=== PATIENT | male | born 1940 | race Caucasian/White ===

== ENCOUNTER → 2023-10-13 07:21 | Outpatient (REF) | payer OTHER, SELFPAY ==
[2023-10-13] MEDS: LEXISCAN 0.4 MG IV (09:07)
[2023-10-13] MEDS: AMINOPHYLLINE 75 MG IV (09:20)
== END ==
LOC: RCS 07:21
PROVIDERS: ATTENDING PHYSICIAN Internal Medicine Cardiovascular Disease; FAMILY PHYSICIAN Family Medicine
DX: R06.09 Other forms of dyspnea (principal)
CPT/HCPCS: 78452; 93017; A9500; J2785

== ENCOUNTER 2023-11-03 06:08 | Day surgery (SDC) | payer OTHER, SELFPAY ==
[2023-10-27 15:42] LABS: % Basophils 0.5 % (0-2); % Eosinophils 2.3 % (0-6); % Immature Granulocytes 0.2 % (0-0.5); % Lymphocytes 18.1 % (20.5-51.1); % Monocytes 9.2 % (1.7-9.3); % Neutrophils 69.7 % (42.2-75.2); Absolute Eosinophils 0.1 10^3/uL (0-0.7); Absolute Monocytes 0.5 10^3/uL (0.1-0.6); Hemoglobin 13.3 g/dL (13.0-18.0); Mean Corpuscular Hgb 30.2 pg (27.0-31.0); Mean Corpuscular Volume 86.4 fL (80.0-94.0); Mean Platelet Volume 9.4 fL (7.4-10.4); Nucleated Red Blood Cells % 0 % (-); Platelet Count 154 10^3/uL (130-400); Red Cell Dist. Width 13.6 % (11.5-14.5); White Blood Cell Count 5.8 10^3/uL (4.8-10.8)
[2023-10-27 16:57] LABS: ALT (SGPT) 27 U/L (0-50); AST (SGOT) 34 U/L (17-59); Albumin 4.2 g/dl (3.5-5.0); Alkaline Phosphatase 72 U/L (38-126); Blood Urea Nitrogen 20 mg/dl (9-20); Calcium 9.9 mg/dl (8.4-10.2); Carbon Dioxide 30 mmol/L (22-30); Chloride 100 mmol/L (98-107); Glucose 140 mg/dl (70-99); Potassium 3.9 mmol/L (3.5-5.1); Sodium 137 mmol/L (135-145); Total Bilirubin 0.9 mg/dl (0.2-1.3); Total Protein 6.5 g/dl (6.3-8.2); eGFR > 60.00
[2023-11-03] VITALS (17 sets, daily range): BP systolic 117–161; BP diastolic 54–75; PULSE 67; BMI 31.3
[2023-11-03 07:16] LABS: Glucose - Point of Care 85 mg/dl (70-99)
--- NOTE | 2023-11-03 09:46 | ITS.CL.CATH ---
Addendum entered and electronically signed by Huber Hamm MD 11/03/23 11:58:
Correction: The patient's primary physician is You Raygoza, DO not Dr Rees. Please send copy of report to Dr Raygoza
Original Note:
Coloring Checker - Catheterization
Cardiac Catheterization
Procedure Report:
CARDIAC CATHETERIZATION REPORT
Date of Procedure: 11/03/2023
Referring: Milad Barrera MD
Indication: Angina with minimal exertion with hx rotational atherectomy ostial circumflex (not stent) and multiple prior LAD stents
�
HEMODYNAMIC DATA
AO: 151/73
LV: 159/20
There is a mean gradient of 11 mmHg across the aortic valve
�
LEFT VENTRICULOGRAPHY: Not performed
�
CORONARY ANGIOGRAPHY
Dominance: Left
Left Main: 20% mid and distal stenosis
LAD: There are multiple stents in the LAD the most proximal of which appears to extend from the ostium through the proximal LAD into the mid LAD. There is a second stent in the mid to distal LAD. All of the stented segments are widely patent.
There is 60-70% apical LAD stenosis just proximal to the whales tail bifurcation
Circumflex: The circumflex is dominant. There is 90% ostial circumflex stenosis with a second area of 70-80% proximal circumflex stenosis. The medium to large OM1 originates from the disease segment of circumflex. OM 2 is a small to medium sized
vessel. OM 3 is small. The circumflex terminates with a large bifurcating LPL and a medium sized L PDA
RCA: 90% mid stenosis in a nondominant RCA
�
Closure Device: None-of note, we attempted the procedure via the right radial artery. A micropuncture needle easily accessed the radial artery with brisk arterial flow. We could only advance a soft tip wire about 5 cm. The wire and needle removed
and a second site was punctured again with good arterial flow but wire advancement was only to the same location suggesting functional or true occlusion of the right radial. Accordingly we accessed the right femoral artery using a micropuncture
technique. The artery was accessed without difficulty. However, at the procedure conclusion we imaged the vessel in preparation for closure device placement and found a significant dissection just below the puncture site. This was imaged and
orthogonal views and is clearly a focal dissection in the proximal common femoral artery. The dissection does not propagate distally. It is unclear whether this is an acute dissection from the procedure today or possibly chronic dissection
following his TAVR procedure in 2021. Of note, the right femoral pulse was minimally palpable prior to the procedure.
�
Radiation (mGy): 358
DAP (cm2.Gy): 36.4
Fluoroscopy time: 1.9 minutes
�
CONCLUSIONS
1:�Systemic hypertension
2:�Bioprosthetic (ADRIENNE S3) TAVR valve (placed at [facility] in 2021) with mean gradient 11 mmHg consistent with well-functioning TAVR prosthesis
3. Severe CAD as described
4. 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 The RFA sheath was removed and manual compression for 25 minutes used to obtain hemostasis. The DP signal present before the case was unchanged once the sheath
had been removed and a PT signal which had not been heard preprocedure was heard post procedure. We will admit the patient for observation overnight to make sure lower extremity blood flow remains intact
5. This patient reportedly had a rotational atherectomy procedure of the ostial circumflex stenosis at [facility] in January 2022 (8 months after TAVR). The patient and his family report that the operating physician stated he could not
get a stent to the location. This recurrent severe lesion is clearly the culprit for his anginal symptoms. He is very unhappy with his quality of life and understands that either surgical or interventional correction will be done at high risk.
Current antianginal regimen includes labetalol and ranolazine. We will add Imdur 30 mg daily to his regimen. We will review revascularization options with CT surgery then present options to the patient and his family.
�
�
Copy to: Milad Barrera MD and Huber Rees,
�
Huber Hamm MD, [facility], [facility]
--- NOTE | 2023-11-03 10:20 | CONSULT.CT ---
Addendum entered and electronically signed by Andrew Orta MD 11/03/23 17:11:
I saw and examined the patient.
The PA's note was reviewed and I agree with the note.
Comment:
CARDIAC SURGERY ATTENDING:
It was my pleasure to meet with Mr. Vicente Headley at his bedside today. His family was present during our discussions. I reviewed his coronary pathology and discussed the potential for surgical operative intervention. Well in the absence of
significant LAD disease, surgery offers no clear survival benefit, given the complexity of his circumflex disease I was asked to evaluate his case by my cardiology colleagues. It is not clear that PCI intervention will be possible. The patient was
agreeable to surgical intervention should PCI not be possible, but would prefer to investigate the possibility of PCI. My interventional cardiology colleague, Dr. Luis Hamm, subsequently spoke with the patient and offered PCI which will be
scheduled for 11/12/2023. I am happy to provide surgical backup.
Thank you for the opportunity to participate in the care of this patient.
Please call with any questions or concerns.
Andrew Orta MD
[phone]
Original Note:
Consultation
-
Date/Time Consultation Requested: 11/03/2023
Date/Time Consultation Performed: 11/03/2023
Requesting Provider: Dr. Hamm
Performing Provider: Neymar brown
Reason for Consultation: CABG eval. vs high risk PCI
Patient History
Physicians
Family Physician: You Seaman
Outpatient Financial Planner: Milad Barrera
Inpatient Financial Planner: Noris
History of Present Illness
Patient is a 83-year-old male with known cardiac history of multiple stents along with previously placed TAVR. Past medical history significant for hypertension, hyperlipidemia, obesity, diabetes, remote tobacco abuse, and positive family history
of coronary disease.
He is now experiencing exertional chest pain that is occurred over 3 years, now comes on more frequently with less exertion. He also complains of shortness of breath. Pain relieved with nitroglycerin and rest. Recent Lexiscan stress test at
[facility] on 10/15/2023 which was abnormal.
Cardiac catheterization performed today 11/03/[address] Hamm showed recurrent coronary artery disease. Cardiothoracic surgery was consulted for possible CABG versus high risk PCI.
Past Medical History
Past medical history: Hypertension
Hyperlipidemia
Obesity
Insulin-dependent diabetes
Remote tobacco abuse
Positive family history for CAD
CAD status post PCI, rotational atherectomy left circumflex [address] [facility]
CAD status post PCI/stent of tandem lesions in mid LAD 6�22 at [facility]
Severe aortic stenosis status post TAVR 8�22 at [facility]
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
Diabetic neuropathy
Severe obstructive sleep apnea CPAP at home
Beach's esophagitis with GERD
History of paraEsophageal hernia status postrepair
Hearing impairment
Benign essential tremor
Detached retina 04/27/2023
Hiatal hernia
Past Surgical History
Past surgical history: PCI stents
Umbilical hernia repair
Detached retina
Paraesophageal hernia repair
Trigger finger repair x 3
Dental History
n/a
Family History
Mother: at Age and Cause of (Mother committed suicide)
Father: at Age and Cause of (Father with history of CAD status post PA, stroke, in his late 60s from complications related to diabetes.)
Family Medical History: Early CAD, CAD and Diabetes
Social History
Alcohol: Daily (1-2 drinks daily, sometimes more)
Drug: None
Tobacco: Former Smoker (Quit smoking 55 years ago)
Personal:
Living: Alone
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
Allergies
Allergy/AdvReac Type Severity Reaction Status Date / Time
pollen extracts Allergy seasonal Verified 11/03/23 07:05
allergies
Home Medications
�Medication �Instructions �Recorded �Confirmed �Type
Preservision 2 cap PO BID 10/23/23 11/03/23 History
Probiotic 1 cap PO DAILY 10/23/23 11/03/23 History
Rescue 1250 Fish Oil 2 cap PO DAILY 10/23/23 11/03/23 History
Slo Fe 45 mg PO DAILY 10/23/23 11/03/23 History
Vitamin B-12 1 tab PO DAILY 10/23/23 11/03/23 History
aspirin 81 mg tablet,delayed 81 mg PO DAILY 10/23/23 11/03/23 History
release
atorvastatin 40 mg tablet 40 mg PO DAILY 10/23/23 11/03/23 History
azelastine 137 mcg (0.1 %) nasal 1 spray intranasal BID 10/23/23 11/03/23 History
spray
cholecalciferol (vitamin D3) 50 50 mcg PO DAILY 10/23/23 11/03/23 History
mcg (2,000 unit) capsule (Vitamin
D3)
clopidogrel 75 mg tablet 75 mg PO DAILY 10/23/23 11/03/23 History
coenzyme Q10 200 mg capsule (Co 200 mg PO DAILY 10/23/23 11/03/23 History
Q-10)
ezetimibe 10 mg tablet 10 mg PO DAILY 10/23/23 11/03/23 History
famotidine 20 mg tablet 20 mg PO BID 10/23/23 11/03/23 History
hydrochlorothiazide 12.5 mg tablet 12.5 mg PO DAILY 10/23/23 11/03/23 History
insulin glargine 100 unit/mL (3 28 unit SC BID 10/23/23 11/03/23 History
mL) subcutaneous pen (Lantus
Solostar U-100 Insulin)
labetalol 300 mg tablet 200 mg PO BID 10/23/23 11/03/23 History
levetiracetam 500 mg tablet 500 mg PO BID 10/23/23 11/03/23 History
melatonin 5 mg tablet 5 mg PO HS PRN sleep 10/23/23 11/03/23 History
ranolazine 500 mg tablet,extended 500 mg PO BID 10/23/23 11/03/23 History
release,12 hr
resveratrol 1 cap PO DAILY 10/23/23 10/23/23 History
Review of Systems
-
History Source: Patient and Family
General: Reports Fatigue
HEENT: Reports No Symptoms
Respiratory: Reports SOB and SINGH
Cardiac: Reports Chest Pain, CAD and Known Vascular Disease
Abdomen/GI: Reports Reflux and Indigestion
: Reports Nocturia
Musculoskeletal: Reports Joint Pain
Skin: Reports No Symptoms
Neurological: Reports CVA and Other (Diabetic neuropathy, benign essential tremor)
Vascular: Reports Claudication
Physical Exam
Vital Signs
Temp 97.8 F 11/03/23 09:25
Temp route: Temporal 11/03/23 09:25
Pulse 51 11/03/23 09:47
Resp Rate 18 11/03/23 09:47
Blood pressure 158/67 11/03/23 09:47
Blood pressure extremity used: Left upper arm 11/03/23 09:25
Position: Lying 11/03/23 09:25
MAP (cuff-Rahda Monitor) 93 11/03/23 09:47
SaO2 98 11/03/23 09:47
Oxygen Mode of Delivery Room air 11/03/23 09:40
Can the patient verbally communicate their pain? Yes 11/03/23 09:40
Actual Weight 194 lb 0.108 oz 11/03/23 06:26
Body Mass Index (BMI) 31.3 11/03/23 06:26
Labs
10/27/23 13:01
10/27/23 13:01
Exam
General: Well Developed, Well Nourished, No Apparent Distress and Comfortable
HEENT: Normocephalic, Anicteric and Atraumatic
Neck: Trachea Midline
Respiratory: Clear
Cardiac: Regular Rhythm
GI: Soft, Non Tender, Non Distended, Normal Bowel Sounds and Other (Obese)
Rectal: Deferred by Provider
Skin: Warm and Dry
Neuro: Awake, Alert, Oriented and AO x 3
Extremities: Lower Level Edema and Pulses (Decreased pulses on right, DP and PT pulses by Doppler, right and left foot cool, dry, left leg good popliteal pulse compared to right popliteal pulse, left DP pulse barely palpable)
Lymph: No Lymphadenopathy
Psych: Calm
Assessment / Plan
-
Assessment: Recurrent coronary artery disease status post multiple stents and rotational atherectomy, now being considered for CABG versus high risk PCI
Hypertension
Hyperlipidemia
Insulin-dependent diabetes
Severe aortic stenosis status post TAVR 8-22 at [place]
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
Obesity
Remote tobacco abuse
Severe obstructive sleep apnea uses CPAP at home
Beach's esophagitis with GERD
History of paraesophageal hernia status postrepair
Hearing impairment
Diabetic neuropathy
Hearing impairment
Plan:
Attending cardiothoracic surgeon will review all studies and plan to have multidisciplinary discussion with invasive cardiology concerning high risk PCI versus CABG.
Continue to optimize medical management, consider endocrine consult for insulin management.
Vascular surgery consulted to evaluate right femoral artery dissection.
--- NOTE | 2023-11-03 10:21 | PTCARENOTE ---
0910: Rec'd pt from agricultural labor camp manager. Placed on all approp monitors. RLE cold, though pt advises no pain or change in sensation/motion. Doppler pulses obtained and monitored.
0930: Dr. Hamm and CT surgery consult at bedside with daughter and pt.
1005: Pt moved to 2256 with RN, on all appropriate monitoring equip. Updated pt report provided at bedside to BIBI Sanz. All questions addressed. Care transferred.
--- NOTE | 2023-11-03 10:30 | PTCARENOTE ---
Rec'd report from Darline in the fence laborer; Rec'd pt in bed AAOx3 w/no c/o CP or SOB. Advised pt & pt's daughter of bedrest status until 12pm today. Pt w/R radial dressing C/D/I & R femoral site w/dressing C/D/I w/no signs or symptoms of bleeding or
hematoma. Pt's VS stable w/HR in the 50's on admit & BP 161/70. Pt's SpO2 91-93% on RA. Pt w/episodes of bradycardia w/HR dipping to upper 30's-40's & SpO2 at 91% on RA. O2 2L via NC applied & pt's O2 sats improved to 96-98%. Cardiology notified of
bradycardia & order for CPAP requested for pt w/PMH of sleep apnea & pt does not have his own CPAP unit w/him. Pt w/call smith within reach & plan of care ongoing.
--- NOTE | 2023-11-03 11:56 | CM ---
Reviewed chart. Met with Mr. Headley and his daughter to review discharge plans. He states prior to admission he resides with his daughter in a one story home with one step to enter. He states prior to admission he was independent with
ambulation and adls. He states he does not have any DME in the home. He states he has a prescription plan and uses [facility]. The discharge plan is to return home with his daughter when medically stable.
--- NOTE | 2023-11-03 12:00 | CON.VAS ---
Addendum entered and electronically signed by James Barreto III, MD 11/03/23 18:30:
This patient was seen and examined with EZIO Ryder. I agree with the history and physical exam as well as the assessment and plan. I have the following additions:
Case discussed with Dr. Luis Hamm in the Hearing Stenographer earlier today
Patient is currently sitting up eating dinner
No complaints
No leg pain, no foot pain bilaterally
Doppler signals are present in the feet bilaterally.
Noninvasive arterial studies personally reviewed.
No dissection is identified in the right common femoral artery.
No significant stenosis is identified bilaterally.
Patient can follow-up with vascular surgery on a as needed basis.
Please call with any questions or concerns
Signed:
James Barreto III, MD
[facility]
[phone] (cell)
Original Note:
Consultation
Consultation Request
Date/Time Consultation Performed: 11/03/2023
Requesting Provider: Huber Hamm MD
Performing Provider: Vanessa Childers NP-C for James Barreto III
Reason for Consultation: Diminished pulse exam initially following cardiac catheterization
Medical History
-
Chief Complaint: Diminished pulse exam at RLE
History of Present Illness:
This is an 83-year-old male with significant past medical history for hyperlipidemia, diabetes, CAD, severe aortic stenosis, stroke, obstructive sleep apnea, and esophagitis who is status post cardiac catheterization via right femoral artery when
consult was placed due to diminished pulses upon sheath insertion. However, since sheath removal for procedure patient has had return of baseline DP and PT pulse to right foot and offers no complaints. Vascular surgery consulted for concern of
peripheral arterial disease. Patient currently offers no complaints and is resting on stretcher without pain. He endorses a sedentary lifestyle over the past 3 years due to cardiac limitations causing either chest pain or shortness of breath. He
notes that he can walk about 50 feet before he experiences shortness of breath. He denies prior history of vascular surgical interventions or requiring a vascular surgeon. 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
Past Medical History
Past Medical History: CAD, Valvular Disease (Aortic stenosis status post TAVR 10/[address] [facility]) and Other (Hyperlipidemia, obesity, diabetic neuropathy, Beach's esophagitis, hiatal hernia, hearing impairment, and essential tremor)
Past Surgical History: Cardiac (Cardiac catheterization with PCI) and Other (Umbilical hernia repair, detached retina, trigger finger repair, paraesophageal hernia repair)
Social History
Tobacco: Former Smoker (Quit smoking roughly 55 years ago)
Alcohol: Daily (1-2 drinks daily)
Drug: None
Living: Alone
Allergies / Home Medications
Allergy/AdvReac Type Severity Reaction Status Date / Time
pollen extracts Allergy seasonal Verified 11/03/23 07:05
allergies
�Medication �Instructions �Recorded �Confirmed �Type
Preservision 2 cap PO BID 10/23/23 11/03/23 History
Probiotic 1 cap PO DAILY 10/23/23 11/03/23 History
Rescue 1250 Fish Oil 2 cap PO DAILY 10/23/23 11/03/23 History
Slo Fe 45 mg PO DAILY 10/23/23 11/03/23 History
Vitamin B-12 1 tab PO DAILY 10/23/23 11/03/23 History
aspirin 81 mg tablet,delayed 81 mg PO DAILY 10/23/23 11/03/23 History
release
atorvastatin 40 mg tablet 40 mg PO DAILY 10/23/23 11/03/23 History
azelastine 137 mcg (0.1 %) nasal 1 spray intranasal BID 10/23/23 11/03/23 History
spray
cholecalciferol (vitamin D3) 50 50 mcg PO DAILY 10/23/23 11/03/23 History
mcg (2,000 unit) capsule (Vitamin
D3)
clopidogrel 75 mg tablet 75 mg PO DAILY 10/23/23 11/03/23 History
coenzyme Q10 200 mg capsule (Co 200 mg PO DAILY 10/23/23 11/03/23 History
Q-10)
ezetimibe 10 mg tablet 10 mg PO DAILY 10/23/23 11/03/23 History
famotidine 20 mg tablet 20 mg PO BID 10/23/23 11/03/23 History
hydrochlorothiazide 12.5 mg tablet 12.5 mg PO DAILY 10/23/23 11/03/23 History
insulin glargine 100 unit/mL (3 28 unit SC BID 10/23/23 11/03/23 History
mL) subcutaneous pen (Lantus
Solostar U-100 Insulin)
labetalol 300 mg tablet 200 mg PO BID 10/23/23 11/03/23 History
levetiracetam 500 mg tablet 500 mg PO BID 10/23/23 11/03/23 History
melatonin 5 mg tablet 5 mg PO HS PRN sleep 10/23/23 11/03/23 History
ranolazine 500 mg tablet,extended 500 mg PO BID 10/23/23 11/03/23 History
release,12 hr
resveratrol 1 cap PO DAILY 10/23/23 10/23/23 History
Review of Systems
-
History Source: Patient
Constitutional: Reports No Symptoms
EENT: Reports No Symptoms
Respiratory: Reports No Symptoms
Cardiac: Reports No Symptoms
Vascular: Denies Leg Pain / Claudication, Numbness or Tingling
Abdomen/GI: Reports No Symptoms
: Reports No Symptoms
Musculoskeletal: Reports No Symptoms
Skin: Reports No Symptoms
Neurological: Reports No Symptoms
Endocrine: Reports No Symptoms
Physical Exam
Vital Signs
Temp Pulse Resp BP Pulse Ox
97.8 F 61 18 140/70 95
11/03/23 15:52 11/03/23 14:45 11/03/23 15:52 11/03/23 13:00 11/03/23 15:52
Lab Results
10/27/23 13:01
08/20/24 13:01
Physical Exam
General: No Apparent Distress
HEENT: Normocephalic, Anicteric and Atraumatic
Respiratory: Non Labored Respirations
Cardiac: Negative JVD
GI: Soft, Non Tender and Non Distended
Musculoskeletal: No Edema
Skin: Warm and Dry
Neuro: AO x 3
Pulses: Bilateral Femoral: +1, Bilateral Dorsalis Pedis: Doppler and Bilateral Posterior Tibial: Doppler
Assessment / Plan
-
Assessment: 83-year-old male status post cardiac catheterization with suspected peripheral arterial disease
Plan:
Will obtain right groin ultrasound to rule out pseudoaneurysm or dissection, additionally will order arterial ultrasound with THUY/TBI to evaluate for peripheral arterial disease\\
I performed this shared service with the attending. I evaluated the patient [id number] and have entered clinical documentation as shown in the encounter note. I performed the following component(s):�history and physical exam. Note that medical
decision making is not final until attested by vascular attending.
[2023-11-03 12:48] LABS: Glucose - Point of Care 64 mg/dl (70-99)
[2023-11-03 13:03] LABS: Glucose - Point of Care 62 mg/dl (70-99)
[2023-11-03] MEDS: NOVOLOG FLEXPEN-MODERATE RESISTANCE SC (13:19)
[2023-11-03 13:27] LABS: Glucose - Point of Care 102 mg/dl (70-99)
--- NOTE | 2023-11-03 14:27 | W.PN.UPDATE ---
Update Note
Progress Note Update
HD stable
Pain free
Doppler signals present R DP and R PT
R foot warm
Reviewed options with pt as did Dr Orta of [facility]. High risk PCI vs CABG vs med Rx. He wants revascularization. Risk of PCI will be high- (2-3% mortality) and stent may or may not be possible. Dr Orta discussed the risk of CABG which is
considerable at age 83. I informed pt and family that there was a possibility that in trying to open the ostial circumflex it could occlude and require emergent CABG which would be significantly more risk than an elective cabg. After discussion, he
wants to proceed with attempted PCI. Will arrange for 9-5.
Expect home in AM
[2023-11-03] MEDS: PLAVIX 75 MG PO (16:33)
[2023-11-03 17:55] LABS: Glucose - Point of Care 224 mg/dl (70-99)
[2023-11-03] MEDS: NOVOLOG FLEXPEN-MODERATE RESISTANCE 3 UNITS SC (18:41)
[2023-11-03] MEDS: PEPCID 20 MG PO (21:24)
[2023-11-03] MEDS: KEPPRA 500 MG PO (21:24)
[2023-11-03] MEDS: RANEXA EXTENDED RELEASE 500 MG PO (21:24)
[2023-11-03] MEDS: TRANDATE PO (21:25)
[2023-11-03 22:27] LABS: Glucose - Point of Care 143 mg/dl (70-99)
[2023-11-03] MEDS: LANTUS 0.28 UNITS SC (22:30)
--- NOTE | 2023-11-04 02:00 | PTCARENOTE ---
Pt. received at change of shift. VSS, NSR with first degree AVB and BBB on tele. Pt. denies CP and SOB, on CPAP at HS. Right radial and femoral sites dry/intact with no complications noted. Plan of care discussed and pt. verbalizes
understanding. Can make needs known. Call smith within reach.
[2023-11-04 03:33] VITALS: PULSE 52
[2023-11-04 04:51] VITALS: BP 146/84
[2023-11-04 05:17] LABS: Hematocrit 40.3 % (39.0-52.0); Hemoglobin 13.9 g/dL (13.0-18.0); Mean Corp Hgb Conc. 34.5 g/dL (33.0-37.0); Mean Corpuscular Hgb 30.4 pg (27.0-31.0); Mean Corpuscular Volume 88.2 fL (80.0-94.0); Mean Platelet Volume 9.3 fL (7.4-10.4); Platelet Count 129 10^3/uL (130-400); Red Blood Cell Count 4.57 10^6/uL (4.70-6.10); Red Cell Dist. Width 13.4 % (11.5-14.5); White Blood Cell Count 4.6 10^3/uL (4.8-10.8)
[2023-11-04 05:43] LABS: Blood Urea Nitrogen 19 mg/dl (9-20); Calcium 9.9 mg/dl (8.4-10.2); Carbon Dioxide 30 mmol/L (22-30); Chloride 103 mmol/L (98-107); Estimated Creatinine Clearance 74 ml/min; Glucose 56 mg/dl (70-99); HDL Cholesterol 54 mg/dl; LDL Cholesterol, Calculated 44 mg/dl; Sodium 142 mmol/L (135-145); Total Cholesterol 114 mg/dl (50-199); Triglyceride 82 mg/dl (10-149); Very Low Density Lipoprotein 16 mg/dl (0-30); eGFR > 60.00
[2023-11-04 06:35] LABS: Glucose - Point of Care 73 mg/dl (70-99)
[2023-11-04 07:39] VITALS: BP 177/71
[2023-11-04 07:43] LABS: Glucose - Point of Care 74 mg/dl (70-99)
[2023-11-04] MEDS: NOVOLOG FLEXPEN-MODERATE RESISTANCE SC (08:14)
[2023-11-04] MEDS: KEPPRA 500 MG PO (08:15)
[2023-11-04] MEDS: ASPIR LOW (ENTERIC COATED) 81 MG PO (08:15)
[2023-11-04] MEDS: ZETIA 10 MG PO (08:15)
[2023-11-04] MEDS: RANEXA EXTENDED RELEASE 500 MG PO (08:15)
[2023-11-04] MEDS: LIPITOR 40 MG PO (08:16)
[2023-11-04] MEDS: PLAVIX 75 MG PO (08:16)
[2023-11-04] MEDS: TRANDATE 200 MG PO (08:16)
[2023-11-04] MEDS: ORETIC 12.5 MG PO (08:20)
[2023-11-04] MEDS: PEPCID 20 MG PO (08:20)
[2023-11-04 08:21] LABS: Glycohemoglobin (HgbA1c) 6.8 % (4.0-5.6)
[2023-11-04] MEDS: LANTUS 0.28 UNITS SC (08:21)
--- NOTE | 2023-11-04 08:57 | W.PN.CARDCBS ---
Today's Communication / Plan
-
DAPT w/asa, plavox
new start isosorbide
Staged PCI 11/11 for high risk LCx intervention
home today
Impression / Plan
-
PCP: You Raygoza MD
CDY: Milad Barrera MD
83 y/o, PMH sig for CAD w/prior LCx atherectomy/angioplasty only (01/2022), LAD ENRIQUE to tandem lesions (08/2021), CVA w/RUE deficit (2019), s/p TAVR (10/2021), presents with chronic exertional chest pain and SOB, progressive over the last few years,
some relief with SL HTG. Lexiscan NST 10/14 was abnormal and referred for LHC.
Cath with recurrent severe ostial/proximal LCx stenosis , and pt was offered hi risk PCI v. CABG. Procedure was complicated with possible R BAIT TIER dissection, noted at end of case, unclear if it was acute or chronic (possibly from TAVR). Admitted
overnight with vascular consult. Workup without any non-flow limiting lesions, no pseudoaneuryms, HT or AVF on US, no dissection noted. CTS also consulted and pt prefers PCI to CABG, despite awareness of increased risk.
IMPRESSION/PLAN:
CAD/USA/Abn NST
LAD ENRIQUE to tandem lesions (08/2021)
LCx atherectomy/angioplasty only (01/2022)
now with recurrent 90% ostial LCx stenosis with 70-80% prox LCx stenosis
pt prefers high risk PCI over CABG- aware of increased risk and stent may/may not be possible.
will continue DAPT w/asa, plavix
new start isosorbide 30mg/daily in addition to ranexa, atenolol
staged PCI planned for 11/[address] Barrera thereafter.
Groin Complication- possible R BAIT TIER dissection noted at end of case, chronic v. acute
vascular consult appreciated
Bilat THUY without flow limiting lesions
Groin US revealed no pseudoaneurysms, HT, AVF or dissection
stable overnight with stable h/h
HTN- stable on current meds
HLD- excellent lipid profile, continue statin therapy
, s/p TAVR (2021)- stable
CVA (10/2019)- stable, good mobility
GERD/BE- continue PPI
Progress Note - Adjustment Supervisor
Subjective
Date of Service: November 04, 2023
Denies cp/palps/dyspnea/groin pain
oob ambulating
Objective
Labs:
11/04/23 04:48
11/04/23 04:48
Labs
Hgb 13.9 g/dL (13.0-18.0) 11/04/23 04:48
Hct 40.3 % (39.0-52.0) 11/04/23 04:48
Plt Count 129 10^3/uL (130-400) L 11/04/23 04:48
Sodium 142 mmol/L (135-145) 11/04/23 04:48
Potassium 4.0 mmol/L (3.5-5.1) 11/04/23 04:48
BUN 19 mg/dl (9-20) 11/04/23 04:48
Creatinine 0.8 mg/dL (0.7-1.3) 11/04/23 04:48
Glucose 56 mg/dl (70-99) L 11/04/23 04:48
Vital Signs and I&O:
Vital Signs
Temp Pulse Resp BP Pulse Ox
98.8 F 55 20 177/71 98
11/04/23 07:38 11/04/23 07:39 11/04/23 07:38 11/04/23 07:39 11/04/23 07:38
Vital Signs
Temp Pulse Resp BP Pulse Ox
98.8 F 55 20 177/71 98
11/04/23 07:38 11/04/23 07:39 11/04/23 07:38 11/04/23 07:39 11/04/23 07:38
Intake & Output
11/02/23 11/03/23 11/04/23 11/05/23
06:59 06:59 06:59 06:59
Intake Total 1360 / 1360
Output Total 300 / 300
Balance 1060 / 1060
Physical Exam
Physical Exam
AAOX3, MAEE 5/5
RRR S1 S2 2/6 holosystolic murmur
CTA bilat, non labored
soft abd, + bs
right groin site without ht/bleeding, non tender
bilat extremities w/palpable distal pulses, no edema
--- NOTE | 2023-11-04 09:09 | PTCARENOTE ---
Assumed care of pt from night RN. Pt received awake and alert, Ox3. VSS, CM shows SB 40-50's, POX 96% on RA. Right radial and right femoral sites CDI, with good CMS throughout. AM AccuCheck is 73, pt refuses to eat breakfast states 'I'll be
going home at 0900 and will eat at home'. Explained to pt that not all D/C paperwork is complete, so probably will not be going home till closer to 1100. Pt continues to refuse breakfast, large glass of OJ given.
--- NOTE | 2023-11-04 09:44 | PTCARENOTE ---
All D/C info reviewed with pt, all questions answered. Pt D/c'd home with family member.
--- NOTE | 2023-11-04 10:33 | W.DS.TRANS ---
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
-
Discharge Instructions:
Discharge Diagnosis/Procedures Cardiac cath, Right femoral artery dissection (
resolved)
Diet Low Cholesterol,Diabetic, Carb Controlled
Driving Restrictions No driving for 24 hours
Instructions:
Stand-Alone Forms: DC Instructions- Cath/EP Lab
Changes to Home Medications: Yes
Discharge Medications:
DC Medications w/original date entered in [employer]
Preservision 2 cap PO BID 10/23/23
Probiotic 1 cap PO DAILY 10/23/23
Rescue 1250 Fish Oil 2 cap PO DAILY 10/23/23
Slo Fe 45 mg PO DAILY 10/23/23
Vitamin B-12 1 tab PO DAILY 10/23/23
aspirin 81 mg tablet,delayed release 81 mg PO DAILY 10/23/23
atorvastatin 40 mg tablet 40 mg PO DAILY 10/23/23
azelastine 137 mcg (0.1 %) nasal spray 1 spray intranasal BID 10/23/23
cholecalciferol (vitamin D3) 50 mcg (2,000 unit) capsule (Vitamin D3) 50 mcg PO DAILY 10/23/23
clopidogrel 75 mg tablet 75 mg PO DAILY 10/23/23
coenzyme Q10 200 mg capsule (Co Q-10) 200 mg PO DAILY 10/23/23
ezetimibe 10 mg tablet 10 mg PO DAILY 10/23/23
famotidine 20 mg tablet 20 mg PO BID 10/23/23
hydrochlorothiazide 12.5 mg tablet 12.5 mg PO DAILY 10/23/23
insulin glargine 100 unit/mL (3 mL) subcutaneous pen (Lantus Solostar U-100 Insulin) 28 unit SC BID 10/23/23
labetalol 300 mg tablet 200 mg PO BID 10/23/23
levetiracetam 500 mg tablet 500 mg PO BID 10/23/23
melatonin 5 mg tablet 5 mg PO HS PRN sleep 10/23/23
ranolazine 500 mg tablet,extended release,12 hr 500 mg PO BID 10/23/23
resveratrol 1 cap PO DAILY 10/23/23
isosorbide mononitrate 30 mg tablet,extended release 24 hr 30 mg PO DAILY #30 tabs 11/04/23
nitroglycerin 0.4 mg sublingual tablet 0.4 mg sublingual [id number] PRN chest pain #25 tabs 11/04/23
Home Medication Changes
NEW: isosorbide, nitrostat
Pending Results: No
== END 2023-11-04 09:45 | disposition home or self-care (01) ==
LOC: CATH 06:08
PROVIDERS: Nurse Practitioner Adult Health; ATTENDING PHYSICIAN Internal Medicine Cardiovascular Disease; CONSULT PHYSICIAN Surgery Vascular Surgery; CONSULT PHYSICIAN Thoracic Surgery (Cardiothoracic Vascular Surgery); FAMILY PHYSICIAN Family Medicine; OTHER PHYSICIAN Internal Medicine Cardiovascular Disease
DX: I25.119 Atherosclerotic heart disease of native coronary artery with unspecified angina pectoris (principal); R07.9 Chest pain, unspecified; I10 Essential (primary) hypertension; E78.5 Hyperlipidemia, unspecified; E11.40 Type 2 diabetes mellitus with diabetic neuropathy, unspecified; G47.33 Obstructive sleep apnea (adult) (pediatric); K21.9 Gastro-esophageal reflux disease without esophagitis; Z95.5 Presence of coronary angioplasty implant and graft; Z87.891 Personal history of nicotine dependence; Z95.3 Presence of xenogenic heart valve; Z86.73 Personal history of transient ischemic attack (TIA), and cerebral infarction without residual deficits; Z82.49 Family history of ischemic heart disease and other diseases of the circulatory system; Z79.02 Long term (current) use of antithrombotics/antiplatelets; Z79.4 Long term (current) use of insulin; Z79.82 Long term (current) use of aspirin
CPT/HCPCS: 36415; 80048; 80053; 80061; 82962; 83036; 85025; 85027; 93005; 93458; 93922; 93925; 93926; C1894; Q9967

== ENCOUNTER 2023-11-12 10:30 | Day surgery (SDC) | payer OTHER, SELFPAY ==
[2023-11-12] VITALS (29 sets, daily range): BP systolic 132–177; BP diastolic 47–132; BMI 31.6
[2023-11-12] MEDS: NSS 266 ML IV (11:23)
[2023-11-12 11:28] LABS: Glucose - Point of Care 89 mg/dl (70-99)
[2023-11-12 14:18] LABS: ACT-LR - POC > 397 Seconds (116-155)
--- NOTE | 2023-11-12 15:04 | ITS.CL.ANGIO ---
Surgical Tech - Angioplasty
Angioplasty
Procedure Report:
CORONARY ANGIOPLASTY REPORT
Date of Procedure: 11/12/2023
Referring: Milad Barrera MD
Indication: [place] class III angina despite medical therapy with severe ostial circumflex disease
�
PROCEDURE SUMMARY:
Unsuccessful attempted PCI of ostial circumflex due to inability to get guidewire into distal circumflex artery
�
DESCRIPTION OF PROCEDURE: Formal surgical backup was arranged for this high risk procedure. A 6 Polish sheath was placed using a micropuncture technique in the left femoral artery. An EBU 3.5 guide catheter set nicely in the left main and provided
good backup support. A series of guidewires were then advanced attempting to wire into the mid and distal circumflex artery. The angulation between the high rising OM1 and circumflex was such that the coronary guidewire coronary guidewires
selected the OM1 branch and we were not able to get a guidewire into the circumflex proper. Of note, review of the angiogram done at [facility] in January 2022 shows that the interventional verifier operator was also unable to wire into the
circumflex and did the rotational atherectomy into OM1. At that time, stenting was felt to be unsafe as it would require stenting in the left main and jailing the entire dominant circumflex distribution distal to OM1. There was now also marked
progression of a proximal circumflex lesion to 80% severity (versus 30% severity in January 2022). We tried BMW, whisper, and Fielder XT wires including the use of a supra core exchange catheter with a 90 degree tip. At no time were able to get
the wire cleanly into the circumflex proper. We then concluded the procedure with several angiograms demonstrating good antegrade flow with no evidence of a misadventure.
�
ANTI-COAGULATION THERAPY
1:�Heparin 6000 units
�
Closure Device Used: None-left femoral angiography suggest the puncture location to be in the distal common femoral artery right at the bifurcation and I did not feel safe to place a closure device. We will use manual compression for hemostasis.
�
Radiation (mGy): 363
DAP (cm2.Gy): 45
Fluoroscopy time: 45.7 minutes
�
CONCLUSIONS: Unsuccessful attempted PCI of ostial circumflex lesion due to inability to get guidewire into the distal circumflex. Include continued medical therapy or CABG x 2 (OM1, OM 4). The patient understands that CABG would not be for a
survival advantage but for symptom relief. He will be seen by Dr. Orta and ultimately will decide whether to proceed with elective CABG or continue medical therapy. We will keep him for observation tonight and plan for discharge tomorrow morning
with a plan to return for elective CABG if he so desires
�
Copy to: Milad Barrera MD and You Raygoza, DO
�
Huber Hamm MD, [facility], [facility]
�
[2023-11-12 15:22] LABS: Glucose - Point of Care 78 mg/dl (70-99)
[2023-11-12 15:25] LABS: ACT-LR - POC 207 Seconds (116-155)
[2023-11-12] MEDS: NSS 1000 IV (15:27)
[2023-11-12 15:37] LABS: ACT-LR - POC > 397 Seconds (116-155)
[2023-11-12 16:44] LABS: ACT-LR - POC 171 Seconds (116-155)
--- NOTE | 2023-11-12 17:09 | W.PN.UPDATE ---
Addendum entered and electronically signed by Andrew Orta MD 11/12/23 17:19:
CARDIAC SURGERY ATTENDING:
It was my pleasure to once again meet with . Vicente Headley at his bedside. We once again discussed the possibility of surgical revascularization to address his CAD. I reiterated that surgical revascularization does not provide a survival
advantage, but that it should alleviate his anginal symptoms. The patient's quality of life with the symptoms is poor and he would like to proceed with surgery. I had a greater than 60-minute conversation with him with his granddaughter present.
We reviewed his coronary anatomy, the proposed operative interventions, the associated operative risks (including, but not limited to, , stroke, MT, arrhythmia, PNA, SANDRA/F, bleeding, and infection), discussed expected in-hospital postprocedural
course, and reviewed the expected outpatient recovery. All questions were answered to the best of my abilities. The patient is agreeable to proceed. Informed consent was obtained.
I have ordered standard preadmission testing, a CT chest without contrast, and echocardiographic assessment. The patient is currently on Plavix therapy. I will instructed to hold his Plavix with his last dose this coming Thursday for planned
surgical revascularization on , 11/19/2023. I anticipate greater saphenous vein bypasses to his OM1/RI branch as well as his terminal circumflex branch.
Thank you for the opportunity to participate in the care of this patient.
Please call with any questions or concerns.
Andrew Orta MD
[phone]
Original Note:
Update Note
Progress Note Update
Patient seen on last admission. He presented today for a PCI, unfortunately, PCI was unsuccessful. Patient met with Dr. Orta and is still agreeable for surgery. Pre-operative testing has been ordered. He will likely be discharged tomorrow and
return on November 19, [address] Orta. Consent obtained. He will be scheduled for further pre-admission testing and plavix will be stopped 5 days prior to surgery.
Bambi HOLGUIN
Cardiac Surgery
--- NOTE | 2023-11-12 18:00 | PTCARENOTE ---
Pt received post cath at 1600 with arterial sheath intact. Left groin site dressing dry and intact with no hematoma. Pt voided 250ml clear neeta urine prior to sheath pull at 1718. Pt remains flat with leg straight. No c/o offered.
[2023-11-12 18:35] LABS: Glucose - Point of Care 78 mg/dl (70-99)
[2023-11-12] MEDS: TRANDATE 200 MG PO (20:25)
[2023-11-12] MEDS: KEPPRA 500 MG PO (20:27)
[2023-11-12] MEDS: RANEXA EXTENDED RELEASE 500 MG PO (20:27)
--- NOTE | 2023-11-12 20:31 | PTCARENOTE ---
2020 - pr L groan bleed pressure held for 20min PA at bedside
[2023-11-12] MEDS: LANTUS SC (20:50)
--- NOTE | 2023-11-12 21:30 | W.PN.UPDATE ---
Update Note
Progress Note Update
-L groin bleeding - held manual pressure from 8:20 pm to 8:45 pm, followed by sand bag for 1 hour. Pt was hemodynamically stable with sbp 160s, A&O, asymptomatic. No further bleeding, hematoma significantly decreased, soft.
-will keep on bedrest until midnight and continue to monitor.
[2023-11-12 21:32] LABS: Glucose - Point of Care 153 mg/dl (70-99)
[2023-11-13] MEDS: PEPCID 20 MG PO ×2 (00:25→07:57)
[2023-11-13] MEDS: TYLENOL 650 MG PO (00:26)
[2023-11-13 01:10] VITALS: PULSE 88
[2023-11-13 04:16] VITALS: BP 162/78
[2023-11-13 05:51] LABS: Hematocrit 35.9 % (39.0-52.0); Hemoglobin 12.5 g/dL (13.0-18.0); Mean Corp Hgb Conc. 34.8 g/dL (33.0-37.0); Mean Corpuscular Volume 89.1 fL (80.0-94.0); Mean Platelet Volume 9.6 fL (7.4-10.4); Platelet Count 127 10^3/uL (130-400); Red Blood Cell Count 4.03 10^6/uL (4.70-6.10); Red Cell Dist. Width 13.2 % (11.5-14.5); White Blood Cell Count 5.2 10^3/uL (4.8-10.8)
[2023-11-13 05:56] VITALS: BMI 31.5
[2023-11-13 06:12] LABS: Blood Urea Nitrogen 12 mg/dl (9-20); Calcium 9.3 mg/dl (8.4-10.2); Carbon Dioxide 27 mmol/L (22-30); Chloride 101 mmol/L (98-107); Estimated Creatinine Clearance 85 ml/min; Glucose 81 mg/dl (70-99); HDL Cholesterol 44 mg/dl; LDL Cholesterol, Calculated 35 mg/dl; Potassium 4.1 mmol/L (3.5-5.1); Sodium 141 mmol/L (135-145); Total Cholesterol 107 mg/dl (50-199); Triglyceride 142 mg/dl (10-149); Very Low Density Lipoprotein 28 mg/dl (0-30); eGFR > 60.00
[2023-11-13 07:18] VITALS: BP 148/60
[2023-11-13 07:30] LABS: Glucose - Point of Care 75 mg/dl (70-99)
[2023-11-13] MEDS: IMDUR (EXTENDED RELEASE) 30 MG PO (07:55)
[2023-11-13] MEDS: ASPIR LOW (ENTERIC COATED) 81 MG PO (07:55)
[2023-11-13] MEDS: LANTUS 0.28 UNITS SC (07:56)
[2023-11-13] MEDS: KEPPRA 500 MG PO (07:56)
[2023-11-13] MEDS: LIPITOR 40 MG PO (07:56)
[2023-11-13] MEDS: ORETIC 12.5 MG PO (07:57)
[2023-11-13] MEDS: RANEXA EXTENDED RELEASE 500 MG PO (07:57)
[2023-11-13] MEDS: ZETIA 10 MG PO (07:57)
[2023-11-13] MEDS: TRANDATE 200 MG PO (07:57)
--- NOTE | 2023-11-13 10:41 | W.PN.CARDCBS ---
Today's Communication / Plan
-
If groin remains stable, d/c home
CABG scheduled 11/18, CT w/u underway
Impression / Plan
-
PCP: You Raygoza,
CDY: Milad Barrera MD
Impression:
CAD/Prior PCI LAD/LCx 2021 - cath 11/02 with ostial ISR LCX stenosis, returned 11/11 for attempted PCI unsuccessful. CT surgery c/s -scheduled for CABG 11/18
L groin ecchymotic, soft, hbg dropped ~1g, good pulses no bruit
continue ASA, statin, Ranexa, isosorbide, stop Plavix
d/c home after w/u for CABG complete
HTN - continue labetalol
DM2 - A1c 6.8, continue insulin
HLD - LDL 35 continue atorvastatin 40mg and ezetimibe
CONCLUSIONS: Unsuccessful attempted PCI of ostial circumflex lesion due to inability to get guidewire into the distal circumflex. Include continued medical therapy or CABG x 2 (OM1, OM 4). The patient understands that CABG would not be for a
survival advantage but for symptom relief. He will be seen by Dr. Orta and ultimately will decide whether to proceed with elective CABG or continue medical therapy. We will keep him for observation tonight and plan for discharge tomorrow morning
with a plan to return for elective CABG if he so desires
�
�
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
Subjective
Date of Service: November 13, 2023
no cp, sob
Objective
Labs:
11/13/23 05:24
11/13/23 05:24
Labs
Hgb 12.5 g/dL (13.0-18.0) L 11/13/23 05:24
Hct 35.9 % (39.0-52.0) L 11/13/23 05:24
Plt Count 127 10^3/uL (130-400) L 11/13/23 05:24
Sodium 141 mmol/L (135-145) 11/13/23 05:24
Potassium 4.1 mmol/L (3.5-5.1) 11/13/23 05:24
BUN 12 mg/dl (9-20) 11/13/23 05:24
Creatinine 0.7 mg/dL (0.7-1.3) 11/13/23 05:24
Glucose 81 mg/dl (70-99) 11/13/23 05:24
Vital Signs and I&O:
Vital Signs
Temp Pulse Resp BP Pulse Ox
97.7 F 68 18 148/60 96
11/13/23 07:12 11/13/23 07:57 11/13/23 07:12 11/13/23 07:57 11/13/23 07:12
Vital Signs
Temp Pulse Resp BP Pulse Ox
97.7 F 68 18 148/60 96
11/13/23 07:12 11/13/23 07:57 11/13/23 07:12 11/13/23 07:57 11/13/23 07:12
Intake & Output
11/11/23 11/12/23 11/13/23 11/14/23
06:59 06:59 06:59 06:59
Intake Total 370 / 370
Output Total 525 / 525
Balance -155 / -155
Physical Exam
Physical Exam
NAD< AOX3
S1, S2, RRR
CTAB, non labored
SNTND bsx4
R fem site soft, ecchymotic, + 1 fem and DP pulse
[2023-11-13 11:04] VITALS: BP 147/67
--- NOTE | 2023-11-13 11:51 | PTCARENOTE ---
Received patient at shift change. SR on the monitor, ambulating in room. Right groin dressing CDI, ecchymotic, 1x1 cm hematoma noted. Dr. Hamm assessed hematoma and cleared pt for discharge. Discharge instructions given and reviewed with pt. Pt
verbalizes understanding. Pt discharged home with daughter.
--- NOTE | 2023-11-13 13:38 | CM ---
Chart reviewed. Patient is independent of ADLS, lives with his daughter in a 1 STH, 1 VINAYAK, 0 DME. Patient coming back on Wednesday 11/15 for PAT. Plan is for the patient to return home.
== END 2023-11-13 11:50 | disposition home or self-care (01) ==
LOC: CATH 10:30
PROVIDERS: Nurse Practitioner Adult Health; ATTENDING PHYSICIAN Internal Medicine Cardiovascular Disease; CONSULT PHYSICIAN Thoracic Surgery (Cardiothoracic Vascular Surgery); FAMILY PHYSICIAN Family Medicine; OTHER PHYSICIAN Internal Medicine Cardiovascular Disease
DX: I25.118 Atherosclerotic heart disease of native coronary artery with other forms of angina pectoris (principal); I45.10 Unspecified right bundle-branch block; Z95.5 Presence of coronary angioplasty implant and graft; Z82.49 Family history of ischemic heart disease and other diseases of the circulatory system; I10 Essential (primary) hypertension; I49.8 Other specified cardiac arrhythmias; I35.0 Nonrheumatic aortic (valve) stenosis; Z86.73 Personal history of transient ischemic attack (TIA), and cerebral infarction without residual deficits; E11.9 Type 2 diabetes mellitus without complications; K21.9 Gastro-esophageal reflux disease without esophagitis; G47.33 Obstructive sleep apnea (adult) (pediatric); Z95.3 Presence of xenogenic heart valve; Q27.8 Other specified congenital malformations of peripheral vascular system; Z79.82 Long term (current) use of aspirin; Z79.4 Long term (current) use of insulin; Z79.899 Other long term (current) drug therapy
CPT/HCPCS: 71250; 80048; 80061; 82962; 85027; 85347; 92920; 93005; 93306; 93880; 94660; C1769; C1894; Q9967

== ENCOUNTER 2023-11-19 04:36 | Inpatient (IN) | payer OTHER, SELFPAY ==
[2023-11-16 09:39] LABS: % Basophils 0.7 % (0-2); % Eosinophils 4.1 % (0-6); % Immature Granulocytes 0.5 % (0-0.5); % Lymphocytes 17.8 % (20.5-51.1); % Monocytes 10.1 % (1.7-9.3); % Neutrophils 66.8 % (42.2-75.2); Absolute Eosinophils 0.2 10^3/uL (0-0.7); Absolute Lymphocytes 0.7 10^3/uL (1.2-3.4); Absolute Monocytes 0.4 10^3/uL (0.1-0.6); Absolute Neutrophils 2.8 10^3/uL (1.4-6.5); Hematocrit 38.1 % (39.0-52.0); Mean Corp Hgb Conc. 34.1 g/dL (33.0-37.0); Mean Corpuscular Hgb 30.7 pg (27.0-31.0); Mean Corpuscular Volume 89.9 fL (80.0-94.0); Nucleated Red Blood Cells % 0 % (-); Platelet Count 129 10^3/uL (130-400); Red Blood Cell Count 4.24 10^6/uL (4.70-6.10); Red Cell Dist. Width 13.7 % (11.5-14.5); White Blood Cell Count 4.2 10^3/uL (4.8-10.8)
[2023-11-16 09:41] LABS: INR 1.11; PT 14.1 Sec (11.4-14.6)
[2023-11-16 09:42] LABS: APTT 30.8 Sec (23.4-35.0)
[2023-11-16 10:04] LABS: ALT (SGPT) 23 U/L (0-50); AST (SGOT) 32 U/L (17-59); Albumin 4.5 g/dl (3.5-5.0); Alkaline Phosphatase 68 U/L (38-126); Blood Urea Nitrogen 18 mg/dl (9-20); Calcium 9.9 mg/dl (8.4-10.2); Carbon Dioxide 25 mmol/L (22-30); Chloride 102 mmol/L (98-107); Direct Bilirubin 0.3 mg/dl (0.0-0.4); Glucose 132 mg/dl (70-99); Potassium 4.1 mmol/L (3.5-5.1); Sodium 142 mmol/L (135-145); Total Bilirubin 1.2 mg/dl (0.2-1.3); Total Protein 6.6 g/dl (6.3-8.2); eGFR > 60.00
[2023-11-16 10:30] LABS: Urine Albumin Negative (Neg - Trace); Urine Bilirubin Negative (Negative); Urine Character Clear (Clear); Urine Color Yellow; Urine Glucose Negative (Negative); Urine Ketone Negative (Negative); Urine Leukocyte Negative (Negative); Urine Nitrite Negative (Negative); Urine Occult Blood Negative (Negative); Urine Specific Gravity 1.015 (<1.030); Urine Urobilinogen Negative (Neg - 1+)
--- NOTE | 2023-11-16 10:53 | W.PN.UPDATE ---
Update Note
Progress Note Update
Procedure Type:�Isolated CABG
PERIOPERATIVE OUTCOME ESTIMATE %
Operative Mortality 1.52%
Morbidity & Mortality 6.9%
Stroke 0.648%
Renal Failure 1.56%
Reoperation 2.55%
Prolonged Ventilation 3.69%
Deep Sternal Wound Infection 0.342%
Long Hospital Stay (>14 days) 4.37%
Short Hospital Stay (<6 days)* 38.9%
Clinical Summary
Planned Surgery: Isolated CABG, Urgent, First cardiovascular surgery
Demographics: 83 year old, White, male, 88.8kg, 168cm, BMI: 31.5 kg/m�
Lab Values: Creatinine: 0.8 mg/dL, Hematocrit: 38.1%, WBC Count: 4.2 10�/�L, Platelet Count: 226885 cells/�L
PreOp Medications: Insulin diabetes control
Substance Abuse: Former smoker, Alcohol use: >=8 drinks/week
Risk Factors / Comorbidities: Insulin-dependent Diabetes Mellitus, Hypertension, Family Hx of CAD
Pulmonary RF: Severity Unknown CLD
Cardiac Status: NYHA Class II, Ejection Fraction = 50%
Coronary Artery Disease: 2 vessels diseased, Stable Angina
Valve Disease: Mild AR, Mild MR
Prev. Cardiac Interv: Previous valve: Aortic valve balloon valvotomy/valvuloplasty
--- NOTE | 2023-11-16 10:57 | CM ---
Met with Mr. Headley in [facility]'. He states prior to admission he resides with his daughter in a one story home with one step to enter. He states prior to admission he was independent with ambulation and adls. He states he does not have any DME in
the home. 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 He states he has a prescription plan . He states his daughter works nights from 11:00 p.m to 7:0o a.m. while she is going to school. He states his granddaughter will stay with him for two weeks
because she can work remotely. The discharge plan is to return home with his daughter and granddaughter staying for two weeks and a home visit by the Cardiothoracic Transitional Care Nurse when medically stable.
We reviewed pre-op and post-op routines. We reviewed the shower instructions. He has the soap and the written instructions. He already has the Cardiothoracic Surgery Educational Booklet. We also reviewed restrictions including sternal precautions
and driving restrictions. We discussed a home visit by the Cardiothoracic Transitional Care Nurse. He is agreeable to a home visit. The plan is for CABG on November
[2023-11-16 14:16] VITALS: BMI 32.8
[2023-11-19] VITALS (9 sets, daily range): BP systolic 80–173; BP diastolic 55–79; BMI 31.3
[2023-11-19] MEDS: LOPRESSOR 25 MG PO (05:13)
[2023-11-19] MEDS: MAGNESIUM OXIDE 500 MG PO (05:13)
[2023-11-19] MEDS: PROTONIX 40 MG PO (05:13)
[2023-11-19] MEDS: BACTROBAN 2% OINTMENT 1 APPLIC NASAL (05:14)
--- NOTE | 2023-11-19 05:29 | PTCARENOTE ---
admitted pt to 2266, admission completed, pt clipped and prepped, confirmed showers x2 NPO since midnight, washed with CHG, labs sent, HM confirmed, pre-op education given, all questions answered
--- NOTE | 2023-11-19 06:27 | PTCARENOTE ---
Dr. Orta notified of ecchymotic L groin prior to admission, ultrasound will be needed before pt goes to OR
--- NOTE | 2023-11-19 08:30 | CM ---
Reviewed chart. Mr. Headley is in the operating room today. Prior to admission he resides with his daughter in a one story home with one step to enter. Prior to admission he was independent with ambulation and adls. He does not have any DME in
the home. 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 He has a prescription plan. His daughter works nights from 11:00 p.m to 7:00 a.m. and goes to school. His granddaughter will stay with him for two weeks because she can metalworker. Medical work-up
in progress. The discharge plan is to return home with his daughter and granddaughter staying with him for two weeks and a home visit by the Cardiothoracic Transitional Care Nurse when medically stable.
[2023-11-19 09:23] LABS: Urine Albumin Negative (Neg - Trace); Urine Bilirubin Negative (Negative); Urine Character Clear (Clear); Urine Color Yellow; Urine Glucose Negative (Negative); Urine Ketone Negative (Negative); Urine Leukocyte Negative (Negative); Urine Nitrite Negative (Negative); Urine Occult Blood 1+ (Negative); Urine Urobilinogen Negative (Neg - 1+)
[2023-11-19 09:31] LABS: ACT+ - POC 101 Seconds (82-134)
[2023-11-19 09:33] LABS: Urine Bacteria Few (Negative); Urine Red Blood Cell 26-30 /HPF (0-2); Urine Squamous Cell 0-2 /LPF (Few); Urine White Cell 0-2 /HPF (0-5)
[2023-11-19 11:18] LABS: Glucose - POC 81 mg/dl (70-99); HCO3 - POC 26 mmol/L (21-29); Hematocrit - POC 35 % PCV (42-52); Hemodilution- POC No; Hemoglobin Calculated - POC 11.9; Ionized Calcium - POC 1.29 mmol/L (1.12-1.27); O2 Saturation %Calculated-POC 99.5 5 (92-96); PCO2 - POC 41 mmHg (35-45); PO2 - POC 165 mmHg (80-100); POC Comment PRE; Potassium - POC 3.7 mmol/L (3.6-5.0); Sodium - POC 142 mmol/L (135-145); pH - POC 7.41 (7.35-7.45)
[2023-11-19 11:37] LABS: ACT+ - POC 941 Seconds (82-134)
[2023-11-19 12:02] LABS: B.E. - POC 6.5 mmol/L; Glucose - POC 103 mg/dl (70-99); HCO3 - POC 30 mmol/L (21-29); Hematocrit - POC 25 % PCV (42-52); Hemodilution- POC Yes; Hemoglobin Calculated - POC 8.4; Ionized Calcium - POC 1.01 mmol/L (1.12-1.27); PCO2 - POC 39 mmHg (35-45); PO2 - POC 496 mmHg (80-100); POC Comment CPB; Potassium - POC 4.8 mmol/L (3.6-5.0); Sodium - POC 138 mmol/L (135-145)
[2023-11-19 12:19] LABS: ACT+ - POC 817 Seconds (82-134)
[2023-11-19 12:29] LABS: Glucose - POC 114 mg/dl (70-99); HCO3 - POC 28 mmol/L (21-29); Hematocrit - POC 26 % PCV (42-52); Hemodilution- POC Yes; Hemoglobin Calculated - POC 8.7; Ionized Calcium - POC 1.06 mmol/L (1.12-1.27); O2 Saturation %Calculated-POC 99.9 5 (92-96); PCO2 - POC 39 mmHg (35-45); PO2 - POC 255 mmHg (80-100); POC Comment CPB; Potassium - POC 4.6 mmol/L (3.6-5.0); Sodium - POC 138 mmol/L (135-145); pH - POC 7.46 (7.35-7.45)
[2023-11-19 12:47] LABS: ACT+ - POC 965 Seconds (82-134)
[2023-11-19 13:21] LABS: B.E. - POC 1.7 mmol/L; Glucose - POC 136 mg/dl (70-99); HCO3 - POC 26 mmol/L (21-29); Hematocrit - POC 28 % PCV (42-52); Hemodilution- POC Yes; Hemoglobin Calculated - POC 9.6; Ionized Calcium - POC 1.05 mmol/L (1.12-1.27); O2 Saturation %Calculated-POC 99.8 5 (92-96); PCO2 - POC 41 mmHg (35-45); PO2 - POC 226 mmHg (80-100); POC Comment WARM; Sodium - POC 140 mmol/L (135-145); pH - POC 7.42 (7.35-7.45)
[2023-11-19 13:23] LABS: ACT+ - POC 98 Seconds (82-134)
--- NOTE | 2023-11-19 13:43 | W.CVOR.SURPR ---
CVOR Surgeon Immed Pre Op
-
I have examined this patient prior to performance of the scheduled procedure.
The patient's condition is unchanged from the time of the dictated/written History and
Physical and the patient is able to undergo the scheduled procedure.
Pt. w/ new c/o L groin ecchymosis and a palpable bump. PE w/ small, non-pulsatile hematoma and minor ecchymosis. L groin vascular study ordered preoperatively and negative for pseudoaneurysm.
--- NOTE | 2023-11-19 13:44 | W.IMMPOSTOP ---
Addendum entered and electronically signed by Andrew Orta MD 11/19/23 15:37:
[id number]
Original Note:
Surgical Immed Post Op Note
-
CARDIAC SURGERY OPERATIVE NOTE:
Preoperative Dx:
Ostial & proximal LCx disease not amenable to PCI
Angina/SINGH
Postoperative Dx:
Same
Procedures:
1) Endoscopic harvest/preparation of RLE GSV
2) CABG x 2 (GSV to OM1, GSV to OM4 [LPDA]
Surgeon:
Andrew Orta M.D.
Assistants:
Ivet Blackmon P.A.-C.; endoscopic harvest/prep of RLE GSV; library media assistant throughout, [id number] closure
Chema WeirCBridget; closure of GSV incisions, [id number] closure
Anesthesia:
Kenny Adair M.D.
Perfusion:
Stanislaw Siegel C.C.P.; CPB 108, XC: 64
Findings:
GSV was of reasonable size and quality to accomplish the planned bypasses. It was slightly thin walled, and required repair suture placement at a side branch.
There was a bloody pericardial effusion present upon pericardiotomy
OM1 was an intramyocardial vessel under ~ 2-3mm of myocardium. It was very friable w/ thin fleming. Coronary arteriotomy was accomplished w/ antegrade cardioplegia running to distend the vessel. ELD 1.75mm; anastomosis performed over 1.5mm
intracoronary shunt.
OM4 [LPDA] was visible on the epicardial surface. It too had friable and thin fleming. Coronary arteriotomy was accomplished w/ antegrade cardioplegia running to distend the vessel. ELD 1.25mm; anastomosis performed over 1.0mm intracoronary shunt.
Graft to OM4 was brought around the right margin of the pericardium
Post-MARGARITA: LVEF 60-65% w/ inferobasal hypokinesia (unchanged), mild MR, mild TR, TAVR w/ mean 13mmHg w/ mild PVL
Implants:
Epicardial V-wire x 1
Grounding wire x 1
CT x 3 (superior mediastinal; inferior mediastinal; right pleural)
Sternal wires x 9
Complications:
None significantly
Difficulty encountered w/ initial zhao catheter placement; second attempt successful w/ clear urine returned. Post-CPB pt w/ hematuria - will follow closely & consult urology if hematuria does not resolve.
Condition:
76 sinus w/ minor ST depressions (-0.7/-0.3), 93/47, CVP 12
GTTS: levophed 2, dobutamine 1, precedex 0.5, insulin 1
Stable/guarded to CVICU
--- NOTE | 2023-11-19 13:50 | CON.INTV ---
Consultation
Consultation Request
Date/Time Consultation Requested: 11/19/2023 - 1324
Date/Time Consultation Performed: 11/19/2023 - 1347
Requesting Provider: EZIO Clancy
Performing Provider: Wally De Anda MD
Reason for Consultation: s/p CABG x2
Medical History
-
Chief Complaint: Elective CABG
History of Present Illness:
83-year-old male with a remote tobacco smoking history (quit approximately 55 years ago) with a past medical history of CAD s/p multiple stents + rotational atherectomy, severe aortic stenosis s/p TAVR, CVA with residual right hand sensation
deficit, hypertension, hyperlipidemia, DM type II on insulin, severe REX on CPAP, GERD c/b Beach's esophagus, history of paraesophageal hernia and essential tremor who presents with CABG. Patient known to cardiothoracic surgery with last
encounter with him during prior hospitalization from 11/02 - 11/04/2023 when he was admitted for exertional chest pain and LHC on 11/03/2023 showed severe CAD involving apical LAD, LCx , ostial LCx and RCA. CT surgery consulted who rec'd PCI, which he
obtained on 11/12/2023 which was unsuccessful as guidewire was unable to traverse the mid and distal LCx artery. Echo on 11/13/2023 showed LVEF 50% with grade II diastolic dysfunction, hypokinesis in basal-mid inferolateral wall and basal inferior
wall. Surgical revascularization was recommended by CT surgery - today he underwent CABG x2. He was TRX to CVICU post-operatively for further care, and now commercial [employer] services consulted for additional management/recommendations.
When I saw the patient he was in bed in no acute distress intubated on SIMV at 60%/12/500/5, with PS of 5. His PIP was 22 cmH2O, breathing at 12 breaths/min and VTe 5.5 mL. Heart rate 64, BP 156 and saturating 97%. He is currently on Levophed at
4mcg/min, dobutamine at 1.5mcg/kg/min and Precedex 0.5 mcg/kg/hr. He has a right sided pleural chest tube x1 + mediastinal chest tubes x 2.
PMHx: CAD s/p multiple stents + rotational atherectomy, history of severe aortic stenosis s/p TAVR (10/2021 � [facility]), history of CVA (10/2019) with residual right hand sensation deficit, hypertension, hyperlipidemia, obesity, DM type II on insulin,
remote tobacco abuse, diabetic neuropathy, severe REX on CPAP, Beach's esophagus, GERD, history of paraesophageal hernia s/p repair, hearing impairment, essential tremor, detached retina (April 2023), hiatal hernia
PSHx: Coronary stents, umbilical hernia repair, detached retina, paraesophageal hernia repair, trigger finger repair x 3
Past Medical History
Past Medical History: Other (Above as per HPI)
Past Surgical History: Other (Above above as per)
Social History
Tobacco: Former Smoker (HPI remote history of tobacco use, quitting 55 years)
Alcohol: Daily ((1-2 drinks daily, sometimes more)
Drug: None
Personal:
Living: Alone
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
Family History
Family History: CAD (Father), Diabetes (Father) and Other (Father: Stroke)
Allergies / Home Medications
Allergies
Allergy/AdvReac Type Severity Reaction Status Date / Time
pollen extracts Allergy seasonal Verified 11/13/23 15:10
allergies
meperidine [From Demerol] AdvReac Nausea / Verified 11/19/23 10:48
Vomiting
Home Medications
�Medication �Instructions �Recorded �Confirmed �Last Taken �Type
Preservision 2 cap PO BID 10/23/23 11/19/23 11/18/23 08:00 History
Probiotic 1 cap PO DAILY 10/23/23 11/19/23 11/14/23 08:00 History
Rescue 1250 Fish Oil 2 cap PO DAILY 10/23/23 11/19/23 11/14/23 08:00 History
Slo Fe 45 mg PO DAILY 10/23/23 11/19/23 11/13/23 08:00 History
Vitamin B-12 1 tab PO DAILY 10/23/23 11/19/23 11/13/23 08:00 History
aspirin 81 mg tablet,delayed 81 mg PO DAILY 10/23/23 11/19/23 11/16/23 08:00 History
release
atorvastatin 40 mg tablet 40 mg PO DAILY 10/23/23 11/19/23 11/18/23 08:00 History
azelastine 137 mcg (0.1 %) nasal 1 spray intranasal BID 10/23/23 11/19/23 11/18/23 08:00 History
spray
cholecalciferol (vitamin D3) 50 50 mcg PO DAILY 10/23/23 11/19/23 11/13/23 08:00 History
mcg (2,000 unit) capsule (Vitamin
D3)
coenzyme Q10 200 mg capsule (Co 200 mg PO DAILY 10/23/23 11/19/23 11/18/23 08:00 History
Q-10)
ezetimibe 10 mg tablet 10 mg PO DAILY 10/23/23 11/19/23 11/18/23 08:00 History
famotidine 20 mg tablet 20 mg PO BID 10/23/23 11/19/23 11/18/23 08:00 History
hydrochlorothiazide 12.5 mg tablet 12.5 mg PO DAILY 10/23/23 11/19/23 11/18/23 08:00 History
insulin glargine 100 unit/mL (3 28 unit SC BID 10/23/23 11/19/23 11/18/23 21:00 History
mL) subcutaneous pen (Lantus
Solostar U-100 Insulin)
levetiracetam 500 mg tablet 500 mg PO BID 10/23/23 11/19/23 11/18/23 08:00 History
melatonin 5 mg tablet 5 mg PO HS PRN sleep 10/23/23 11/19/23 11/17/23 21:00 History
ranolazine 500 mg tablet,extended 500 mg PO BID 10/23/23 11/19/23 11/18/23 08:00 History
release,12 hr
resveratrol 1 cap PO DAILY 10/23/23 11/19/23 11/18/23 08:00 History
nitroglycerin 0.4 mg sublingual 0.4 mg sublingual [id number] PRN 11/04/23 11/19/23 11/10/23 08:00 Rx
tablet chest pain #25 tabs
labetalol 200 mg tablet 200 mg PO BID 11/12/23 11/19/23 11/18/23 08:00 History
clopidogrel 75 mg tablet 75 mg PO DAILY 11/13/23 11/19/23 11/14/23 08:00 History
Review of Systems
-
Unable to Obtain full review of systems at this time due to: Patient Intubation
Vitals / Labs / Diagnostic Testing
Vital Signs
Temp Pulse Resp BP Pulse Ox
98.3 F 68 16 173/79 99
11/19/23 05:20 11/19/23 05:20 11/19/23 05:20 11/19/23 05:20 11/19/23 05:20
Microbiology
11/16/23 08:39 Nose MRSA Screen - Final
No Methicillin Resistant Staphylococcus aureus isolated.
Diagnostic Testing:
Physical Exam
-
HEENT: Normocephalic, Anicteric and Other (ETT in place)
Cardiovascular: S1/S2 and Peripheral Edema (negative)
Respiratory: Wheeze (negative), Rales (negative), Rhonchi (negative), Non-Labored Respirations, Other (Mechanical breath sounds are bilaterally) and Other (chest tube: right pleural chest tube x1 + mediastinal chest tubes x 2)
GI: Soft, Non Distended, Non Tender, Normal Bowel Sounds and Other
Neurology: Tremors (negative) and Other (Sedated)
Skin: Warm and Dry
General: Respiratory Distress (negative), Comfortable, Fever (negative), Chills (negative) and Sweats (negative)
Assessment
-
Assessment: 83-year-old male with a remote tobacco smoking history (quit approximately 55 years ago) with a past medical history of CAD s/p multiple stents + rotational atherectomy, severe aortic stenosis s/p TAVR, CVA with residual right hand
sensation deficit, hypertension, hyperlipidemia, DM type II on insulin, severe REX on CPAP, GERD c/b Beach's esophagus, history of paraesophageal hernia and essential tremor who presents with CABG. Patient known to cardiothoracic surgery with
last encounter with him during prior hospitalization from 11/02 - 11/04/2023 when he was admitted for exertional chest pain and LHC on 11/03/2023 showed severe CAD involving apical LAD, LCx , ostial LCx and RCA. CT surgery consulted who rec'd PCI,
which he obtained on 11/12/2023 which was unsuccessful as guidewire was unable to traverse the mid and distal LCx artery. Echo on 11/13/2023 showed LVEF 50% with grade II diastolic dysfunction, hypokinesis in basal-mid inferolateral wall and basal
inferior wall. Surgical revascularization was recommended by CT surgery - on 11/19/2023 he underwent CABG x2. He was TRX to CVICU post-operatively for further care, and now commercial [employer] services consulted for additional management/recommendations.
Chronic conditions [employer]: CAD s/p multiple stents + rotational atherectomy, history of severe aortic stenosis s/p TAVR (10/2021 � [facility]), history of CVA (10/2019) with residual right hand sensation deficit, hypertension, hyperlipidemia, obesity, DM type
II on insulin, remote tobacco abuse, diabetic neuropathy, severe REX on CPAP, Beach's esophagus, GERD, history of paraesophageal hernia s/p repair, hearing impairment, essential tremor, detached retina (April 2023), hiatal hernia
Impression:
#Recurrent CAD with Hx of multiple stents and rotational atherectomy s/p CABG x 2 (POD #0)
#Hx of severe s/p TAVR (10/2021 - [facility])
#Hx of severe REX on CPAP
#Remote tobacco use
#DM type II
#Obesity (BMI: 31.3)
#History of GERD c/b Beach's esophagus
#Abnormal chest CT with mild lower lobe predominant bronchiectasis and small FERNIE GGO measuring 3mm
Plan:
Ventilator settings reviewed
FiO2 will be weaned to maintain SpO2 >90-94%
Minute ventilation will be adjusted
Arterial blood gases will be monitored
Spontaneous breathing trial will be attempted with hopeful extubation after anesthesia/sedation wear off
prn nebulized bronchodilators
Pulmonary artery catheter parameters will be followed
Pressors/antihypertensive/inotropes/diuretics will be provided as needed
Maintain MAP>65
Replete electrolytes with K>4, Mg>2
Monitor chest tube output (right pleural chest tube x1 and mediastinal chest tubes x2)
Monitor hemoglobin
Monitor platelet count and coags
Transfuse blood products as needed to maintain Hb>7g/dL, plt>50k (given post-operative status)
CT surgery managing chest tubes
Monitor blood sugar to maintain euglycemia with goal BG 140-180
Insulin drip per protocol
Aspiration precautions
VAP prevention protocol
DVT prophylaxis
Early nutrition
Early mobilization
He has a very subtle left upper lobe 3-4 mm groundglass opacity seen on CT chest from 11/13/2023. I will arrange for outpatient office follow-up to discuss radiographic surveillance with repeat imaging in about 3-6 months.
Critical care statement: A total of 38 minutes of critical care time was provided for this patient today. This includes management of ventilator, spontaneous breathing trial, arterial blood gases, pressors, of unstable vital signs, evaluation of the
patient at bedside, reviewing the patient's pertinent medical records including radiographs, microbiology, laboratory evaluations, and discussion with primary team and critical care nursing.
CT Chest 11/13/2023:
1. Mildly increased interstitial opacity as above, probable mild interstitial edema. Small amount of gravity dependent atelectasis. No consolidation or pneumothorax.
2. Moderate aortic atherosclerosis. Mild ectasia of the aorta at the distal arch, 3.6 cm diameter. Aberrant right subclavian artery, normal anatomic variation. Severe coronary artery calcification and probable coronary stents.
3. Dilation of the right pulmonary artery, 4 cm diameter. While this could be related to pulmonary arterial hypertension, it is out of proportion to the main and left pulmonary arteries therefore indeterminate.
[2023-11-19 14:06] LABS: B.E. - POC -0.2 mmol/L; Glucose - POC 135 mg/dl (70-99); HCO3 - POC 25 mmol/L (21-29); Hematocrit - POC 29 % PCV (42-52); Hemodilution- POC Yes; Hemoglobin Calculated - POC 9.7; Ionized Calcium - POC 1.31 mmol/L (1.12-1.27); O2 Saturation %Calculated-POC 97.1 5 (92-96); PCO2 - POC 42 mmHg (35-45); PO2 - POC 93 mmHg (80-100); POC Comment POST; Potassium - POC 4.1 mmol/L (3.6-5.0); Sodium - POC 140 mmol/L (135-145); pH - POC 7.39 (7.35-7.45)
[2023-11-19 14:21] LABS: Glucose - Point of Care 123 mg/dl (70-99)
[2023-11-19 14:29] LABS: Hematocrit 30.7 % (39.0-52.0); Hemoglobin 10.6 g/dL (13.0-18.0); Platelet Count 124 10^3/uL (130-400)
[2023-11-19 14:32] LABS: B.E. 0.6 mmol/L; Ionized Calcium 1.28 mMOL/L (1.15-1.33); O2 Saturation % 99.4 % (94-98); PCO2 44 mmHg (35-48); PO2 127 mmHg (83-108); Potassium 4.1 mMOL/L (3.5-5.1); Sodium 138 mMOL/L (136-145); pH 7.38 (7.35-7.45)
[2023-11-19 14:33] LABS: O2 Therapy vent
[2023-11-19 14:35] LABS: ACT+ - POC > 1003 Seconds (82-134)
[2023-11-19 14:44] LABS: APTT 30.4 Sec (23.4-35.0); PT 18.2 Sec (11.4-14.6)
[2023-11-19 14:53] LABS: Blood Urea Nitrogen 15 mg/dl (9-20); Estimated Creatinine Clearance 95 ml/min; Glucose 123 mg/dl (70-99); Magnesium 2.7 mg/dl (1.6-2.3)
[2023-11-19] MEDS: ANCEF 10 IV ×2 (15:00)
[2023-11-19] MEDS: NSS 500 IV (15:01)
[2023-11-19] MEDS: NOVOLOG FLEXPEN SC ×2 (15:01→17:08)
[2023-11-19] MEDS: TYLENOL PO ×2 (15:02→23:23)
[2023-11-19 15:16] LABS: Glucose - Point of Care 111 mg/dl (70-99)
--- NOTE | 2023-11-19 15:30 | PTCARENOTE ---
Rec'd pt this shift mechanically ventilated and sedated. Pt with Rt IJ cordis and Left radial yovany. Pt on IV Insulin at 1 unit/hr, IV Levo at 3 mcg/min and IV precedex at 0.5 mcg/kg/hr. labs sent. EKG done and CXR done. See worklsit for VS/I and O
and assessments.
[2023-11-19] MEDS: PLAVIX PO (15:47)
[2023-11-19] MEDS: LIPITOR PO (15:47)
[2023-11-19] MEDS: NEURONTIN PO ×2 (15:47→17:08)
[2023-11-19] MEDS: ZETIA PO (15:47)
--- NOTE | 2023-11-19 15:48 | PTCARENOTE ---
pt stimulated awake, able to open eyes to name. Left pupil 4, Rt pupil 2 reported by anesthesia prior to intubation. Pupils remain same. Pt ROBERTS spontaneously and to command. Precedex decreased to 0.4 mcg/kg/min.
--- NOTE | 2023-11-19 15:51 | W.PN.UPDATE ---
Update Note
Progress Note Update
83-year-old male was electively admitted on 11/19/2023 for coronary bypass due to exertional chest pain and triple-vessel coronary disease with preserved ejection fraction. Prior left groin cath site was diffusely ecchymotic and stat ultrasound was
negative for pseudoaneurysm. Patient proceeded to surgery.
IV fluids: 1900
U.O.:� 400
Blood:� none
Wires:� V-wires
Gtts:� Dobutamine @ 1.5; Levophed @ 4; Precedex @ 0.5; Insulin @ 1
�
NEURO: sedated on Precedex, pupils +2mm B/L
RESP: #8OT @24cm> 600/60%/14/5. Lungs clear B/L. 2 mediastinal (0cc on arrival) and R pleural (5cc on arrival) chest tubes to -20cm suction. Sanguineous drainage
CV: RRR +S1, S2, no S3, no�rub, no murmur. Aquacell to median sternotomy. RIJ w/[place]
ABD: round, soft, no BS
EXT: no edema, +2/4 DP pulses B/L, no femoral bruit, RLE SILVANO wrap intact; left radial A-line intact
: Barreto with clear yellow urine
�
A/P: POD #0 s/p CABG x 2 (GSV to OM1, GSV to OM4 [LPDA])
MARGARITA: EF�60-65%, mild MR/TR, mild PVL (prior TAVR)
- wean and extubate>uses CPAP for REX @ home
# CAD
- will require ASA/Plavix, statin, zetia, beta karlo
# Hx TAVR (2021)
- stable, mild PVL
�
# acute surgical blood loss anemia-expected
- Hb 10.6
- trend CBC
�
# T2DM (A1C 6.8)
- insulin infusion x 48h
- consult Diabetes ASSEMBLER FITTER
�
# Hyperlipidemia
- resume�Lipitor/Zetia
# Hx CVA w/residual right hand sensation deficit
- neuro checks
- resume Levetiracetam 500mg BID when tolerating solids
# Hx Beach's esophagus
- on Pepcid @ home>convert to Protonix while on Plavix
[2023-11-19 16:04] LABS: Glucose - Point of Care 101 mg/dl (70-99)
--- NOTE | 2023-11-19 16:37 | PTCARENOTE ---
Pt placed on CPAP 5 PS 5 .40%. TV 400-450. Pulse ox 100%.
[2023-11-19] MEDS: PACERONE PO (17:08)
[2023-11-19 17:09] LABS: B.E. -1.4 mmol/L; HCO3 24.3 mmol/L (21-28); O2 Saturation % 99.8 % (94-98); PCO2 44 mmHg (35-48); PO2 132 mmHg (83-108); pH 7.35 (7.35-7.45)
--- NOTE | 2023-11-19 17:23 | PTCARENOTE ---
ABG sent and results obtained. Pt extubated and placed on 6l n/c oxygen. Pulse ox 99%. pt ROBERTS spontaneously and to command.
[2023-11-19 17:30] LABS: Glucose - Point of Care 74 mg/dl (70-99)
[2023-11-19] MEDS: TYLENOL 650 MG PO (18:14)
[2023-11-19] MEDS: LOW STRENGTH ASPIRIN 81 MG PO (18:14)
[2023-11-19 18:15] LABS: Potassium 4.5 mmol/L (3.5-5.1)
[2023-11-19] MEDS: ANCEF 5 IV (18:15)
[2023-11-19 18:17] LABS: Hemoglobin 10.9 g/dL (13.0-18.0); Platelet Count 166 10^3/uL (130-400)
--- NOTE | 2023-11-19 18:23 | PTCARENOTE ---
pt bathed with CHG wipes, turned side to side, tolerated well. Pts family at bedside, updated them on plan of care. Pt tolerating sips of water.
[2023-11-19 18:27] LABS: Glucose - Point of Care 86 mg/dl (70-99)
[2023-11-19 19:19] LABS: Glucose - Point of Care 94 mg/dl (70-99)
[2023-11-19] MEDS: ROXICODONE 2.5 MG PO (19:29)
--- NOTE | 2023-11-19 19:53 | PTCARENOTE ---
received pt from day shift nurse. AAOx3 low grade temp 99.6, pt complaining of sternal pain 2.5 harlan given, NSR per tele HR 80s, pedal pulses found with doppler, CVP 7-8, V wire 50 10 0.1, CTx3 Medsx2 R pleural, no air leaks/tidaling/ crepitus, pox
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
piv intact, levo at 2, dobut at 1.5, insulin per protocol, bed locked, call smith within reach
[2023-11-19 20:05] LABS: Glucose - Point of Care 97 mg/dl (70-99)
[2023-11-19] MEDS: DILAUDID 0.25 MG IV (20:08)
[2023-11-19] MEDS: NEURONTIN 100 MG PO (21:05)
[2023-11-19] MEDS: PACERONE 200 MG PO (21:05)
[2023-11-19] MEDS: SENOKOT-S 1 TABLET PO (21:05)
[2023-11-19] MEDS: DILAUDID 0.5 MG IV (21:08)
[2023-11-19 21:31] LABS: Glucose - Point of Care 88 mg/dl (70-99)
[2023-11-19 21:40] LABS: Mixed Venous O2 Saturation 53.3 %
[2023-11-19 21:41] LABS: Hematocrit 30.9 % (39.0-52.0); Hemoglobin 10.7 g/dL (13.0-18.0)
[2023-11-19 21:42] LABS: B.E. -2.3 mmol/L; HCO3 23.2 mmol/L (21-28); Ionized Calcium 1.21 mMOL/L (1.15-1.33); O2 Saturation % 98.1 % (94-98); PCO2 42 mmHg (35-48); PO2 91 mmHg (83-108); Potassium 4.5 mMOL/L (3.5-5.1); pH 7.35 (7.35-7.45)
[2023-11-19 22:08] LABS: Glucose - Point of Care 100 mg/dl (70-99)
[2023-11-19] MEDS: LR 250 ML IV (22:12)
[2023-11-19] MEDS: ROXICODONE 5 MG PO (23:22)
--- NOTE | 2023-11-19 23:29 | PTCARENOTE ---
pt complaining of sternum pain 8-10 multiple doses or pain meds given see MAR. NSR per tele, VSS, assessment remains unchanged
[2023-11-20] VITALS (25 sets, daily range): BP systolic 93–137; BP diastolic 48–95; PULSE 85; O2SAT 92–95; BMI 33.0
[2023-11-20 00:02] LABS: Glucose - Point of Care 115 mg/dl (70-99)
[2023-11-20] MEDS: LR 250 ML IV (00:04)
[2023-11-20] MEDS: BACTROBAN 2% OINTMENT 1 APPLIC NASAL ×3 (01:01→20:31)
[2023-11-20 01:59] LABS: Glucose - Point of Care 99 mg/dl (70-99)
[2023-11-20] MEDS: ANCEF 5 IV ×2 (02:08→09:45)
[2023-11-20] MEDS: DILAUDID 0.5 MG IV (02:08)
[2023-11-20 04:23] LABS: Glucose - Point of Care 117 mg/dl (70-99)
[2023-11-20 04:31] LABS: Mixed Venous O2 Saturation 58.4 %
[2023-11-20 04:40] LABS: Hematocrit 27.2 % (39.0-52.0); Hemoglobin 9.5 g/dL (13.0-18.0); Mean Corp Hgb Conc. 34.9 g/dL (33.0-37.0); Mean Corpuscular Hgb 30.2 pg (27.0-31.0); Mean Corpuscular Volume 86.3 fL (80.0-94.0); Mean Platelet Volume 9.1 fL (7.4-10.4); Platelet Count 122 10^3/uL (130-400); Red Blood Cell Count 3.15 10^6/uL (4.70-6.10); Red Cell Dist. Width 14.2 % (11.5-14.5); White Blood Cell Count 12.5 10^3/uL (4.8-10.8)
--- NOTE | 2023-11-20 04:52 | PTCARENOTE ---
routine labs obtained, ekg obtianed, pt complaining of pain 10 0.5 Dilaudid given, VSS, NSR w/ monomorphic PVCs
[2023-11-20 04:54] LABS: Blood Urea Nitrogen 24 mg/dl (9-20); Calcium 8.6 mg/dl (8.4-10.2); Carbon Dioxide 24 mmol/L (22-30); Chloride 106 mmol/L (98-107); Estimated Creatinine Clearance 64 ml/min; Glucose 121 mg/dl (70-99); Magnesium 2.3 mg/dl (1.6-2.3); Potassium 4.4 mmol/L (3.5-5.1); Sodium 140 mmol/L (135-145); eGFR > 60.00
--- NOTE | 2023-11-20 05:52 | W.PN.CT ---
Addendum entered and electronically signed by Cydney Prather PA-C 11/20/23 13:12:
Response to query:
1.) Bifascicular block is a valid diagnosis
2.) Unstable
Addendum entered and electronically signed by Andrew Orta MD 11/20/23 08:35:
I saw and examined the patient.
The PA's note was reviewed and I agree with the note.
Comment:
Postop day #1 status post coronary bypass grafting x 2
Overnight events noted. Looks good this morning without any specific complaints, expected postsurgical discomfort.
Wean dobutamine as tolerated for maps greater than 60, heart rate greater than 60
Monitor urine output, maintain Barreto
Maintain chest tubes
OOB, I-S, ambulate later
Original Note:
Today's Communication / Plan
-
-pod #1
-intermittent hypotension with low UO 20-25cc/hr last night- Hg stable, no significant CT output- responded to IVF (500 LR)
-mVO2 58.4. drips: Dobut 1.5, Levo is off @ 3:30am
-CT output: 2 meds 65/120, R pleur 110/200 in 12/24 hrs
-wean off Dobut as tolerated, then deline
-? keep Barreto for 24 hrs
-current meds (ASA, Plavix, Lipitor, Zetia, Amio, Protonix). Held BB while on Dobutamine
-encourage IS, OOB
Assessment / Plan
-
- Ostial & proximal LCx CAD not amenable to PCI- s/p CABG x 2 (GSV to OM1, GSV to OM4 [LPDA] on 11/19/[address] Orta, pod #1
- Post-MARGARITA: LVEF 60-65% w/ inferobasal hypokinesia (unchanged), mild MR, mild TR, TAVR w/ mean 13mmHg w/ mild PVL
- HTN/HLD
- CAD with stents 2013 and 2021
- s/p TAVR 2021
- Class 1 obesity (BMI 31)
- DM II
- REX, on CPAP
- CVA with R hand sensation deficit
- Chronic RBBB
- GERD/ Beach's esophagitis
- Former smoker
- Acute postop blood loss anemia
- Acute postop thrombocytopenia
- Acute postop atelectasis
- Acute postop hypovolemia with subsequent hypervolemia
Discussed patient care with: Nursing and Care Team
Subjective
Procedure
s/p CABG x 2 (GSV to OM1, GSV to OM4 [LPDA] on 11/19/[address] Orta
-
Date of Service: November 20, 2023
Objective Data
-
PT 18.2 Sec (11.4-14.6) H 11/19/23 14:18
INR 1.50 11/19/23 14:18
APTT 30.4 Sec (23.4-35.0) 11/19/23 14:18
Vital Signs
Vital Signs
Temp Pulse Resp BP Pulse Ox
99.7 F 85 24 128/58 96
11/20/23 01:58 11/20/23 02:00 11/20/23 02:00 11/20/23 02:00 11/20/23 02:00
CT Intake/Output/Weight
11/19/23 11/19/23 11/20/23
06:59 18:59 06:59
Intake Total 188.8 / 989.9 801.1 / 989.9
Output Total 495 / 885 390 / 885
Balance -306.2 / 104.9 411.1 / 104.9
SaO2: 96
Physical Exam
-
General: Awake and AOx3
Cardiovascular: Regular rate & rhythm, No Murmurs and No Rub
Respiratory: Decreased Breath Sounds
Sternum: Stable
Incision: Clean, Dry and Intact
Extremities: Other (trace edema b/l, DPs by Doppler b/l)
Data Reviewed
-
Lab Results: Results Reviewed
Medications: Active Meds Reviewed
Chest X-Ray: Report Reviewed and Image Reviewed
ECG: Report Reviewed and Image Reviewed
[2023-11-20 06:13] LABS: Glucose - Point of Care 127 mg/dl (70-99)
--- NOTE | 2023-11-20 07:25 | W.PN.ANS.POP ---
Anesthesia Post Operative
- Anesthesia Post Op Note
Vital Signs Stable-See Nursing Note: Yes
Airway Patent: Yes
Adequate Pain Control: Yes
Change in Mental Status: No
Current Postoperative Nausea & Vomiting: No
Anesthesia Complications: No
General Anesthetic Recall: No
Unplanned Admission: No
Post Op Hydration Adequate: Yes
--- NOTE | 2023-11-20 07:27 | PN.DE.MGMTRT ---
Insulin Management
- -
11/20/2023: Diabetes Management Consult
83 year old male with PMH: CAD s/p multiple stents + rotational atherectomy, severe s/p TAVR, CVA with residual right hand sensation deficit, HTN, HLD, T2DM on insulin, severe REX on CPAP, GERD c/b Beach's esophagus, h/o paraesophageal hernia,
essential tremor and remote h/o tobacco use.
Patient known to cardiothoracic surgery with last encounter with him during prior hospitalization from 11/02 - 11/04/2023 when he was admitted for exertional chest pain and LHC on 11/03/2023 showed severe CAD involving apical LAD, LCx , ostial LCx and
RCA. CT surgery consulted who rec'd PCI, which he obtained on 11/12/2023 which was unsuccessful as guidewire was unable to traverse the mid and distal LCx artery. Echo on 11/13/2023 showed LVEF 50% with grade II diastolic dysfunction, hypokinesis in
basal-mid inferolateral wall and basal inferior wall. Surgical revascularization was recommended by CT surgery.
AIC 6.8% as of 10/29/23, Cr 0.9, eGFR >60
Pt awake, alert, sitting up in bed, able to discuss diabetes plan, Dtr- Karen at bedside, all questions answered.
Pt is now POD #1 S/P CABG x2, doing well. States he was taking Lantus 28 units BID. He has a CGM-Arun [address] for glucose monitoring at home.
Remains on Critical care Glycemic protocol, glucose range 99 to 127 , requiring 0.5 to 1.2 units of insulin/hr.
Plan to continue CCGP x48 hrs postop. Will cont current plan and assess for readiness to transition off drip tomorrow, ideally at HS.
Recs at time of transition: please consider transitioning off drip at 20:00. Give Lantus 28 units @ 20:00, then insulin drip off 1 hr later
Morning of 11/21: Cont Lantus 28 units BID and low corrective with meals - All ordered
Plan of care d/w CT APPs and nursing team.
Diabetes History
- -
Type of Diabetes: 2 requiring insulin
Pre-Admission Diabetes Regimen
11/19/23 11/20/23
14:18 04:14
Creatinine 0.6 L 0.9
Insulin Pump Settings
IP Diabetes Regimen
11/19/23 11/19/23 11/19/23
14:18 14:20 15:14
Glucose 123 H
POC Glucose 123 H 111 H
11/19/23 11/19/23 11/19/23
16:03 17:28 18:26
Glucose
POC Glucose 101 H 74 86
11/19/23 11/19/23 11/19/23
19:18 20:04 21:24
Glucose
POC Glucose 94 97 88
11/19/23 11/20/23 11/20/23
22:06 00:00 01:57
Glucose
POC Glucose 100 H 115 H 99
11/20/23 11/20/23 11/20/23
04:14 04:20 06:11
Glucose 121 H
POC Glucose 117 H 127 H
Patient Education
--- NOTE | 2023-11-20 07:30 | PTCARENOTE ---
Received pt from [facility], walking rounds completed. Pt assessment completed in bed. Pt is AAOx4, Bi-lateral SENECA, pt can communicate well with hearing aids in place. No other neuro deficits noted. NSR on monitor with occasional PVC's. B/P's 126/55,
HR: 80's, Pulses palpable bilateral upper extremities, bilateral lower extremities heard on doppler. Sternal incision aquacel, C/D/I. Trace edema upper extremities, +1 LLE, trace RLE. Lungs clear, diminished in bases, 2 Medial, 1 R pleural C/T,
sanguineous drainage WNL, Dressings C/D/I. Barreto in place, draining clear, neeta urine. Abdomen round, soft, non-tender, hypoactive B/S. RLE bandage in place. Right IJ cordis, L a-line, R 18g, no redness or edema noted. Discussed plan of care for
day with patient, pt agrees with plan.
[2023-11-20 08:10] LABS: Glucose - Point of Care 112 mg/dl (70-99)
[2023-11-20] MEDS: TYLENOL 1000 MG PO ×3 (08:18→22:01)
[2023-11-20] MEDS: FLEXERIL 5 MG PO (08:19)
[2023-11-20] MEDS: PROTONIX 40 MG PO (08:22)
[2023-11-20] MEDS: SENOKOT-S 1 TABLET PO ×2 (08:23→20:19)
[2023-11-20] MEDS: PLAVIX 75 MG PO (08:23)
[2023-11-20] MEDS: LIPITOR 40 MG PO (08:23)
[2023-11-20] MEDS: PACERONE 200 MG PO ×4 (08:23→22:01)
[2023-11-20] MEDS: ZETIA 10 MG PO (08:24)
[2023-11-20] MEDS: NEURONTIN 100 MG PO ×3 (08:26→22:01)
[2023-11-20] MEDS: MAGNESIUM OXIDE 500 MG PO ×2 (08:27→20:19)
[2023-11-20] MEDS: LOW STRENGTH ASPIRIN 81 MG PO (08:27)
--- NOTE | 2023-11-20 08:28 | W.PN.CD ---
Today's Communication / Plan
-
Wean dobutamine
OOB to chair when able
ISB
routine post-op care
Impression / Plan
-
A: 83 y/o, PMH sig for CAD w/prior LCx atherectomy/angioplasty only (01/2022), LAD ENRIQUE to tandem lesions (08/2021), CVA w/RUE deficit (2019), s/p TAVR (10/2021), presents for planned CABG, now s/p SVG to OM1 and SVG to OM4 by Dr Orta.
CAD s/p CABG with SVG to OM1 and OM 4 LAD stenting
- asa/plavix when OK from surgical perspective
- cont atorvastatin 40mg and zetia
- holding anti-HTN for now
HTN
- on hold for now
HLD
- cont statin and zetia
s/p TAVR
- stable
DM2
hx of CVA
Beach's esophagus
PCP: You Raygoza MD
CDY: Milad Barrera MD
Physical Exam
Vital Signs/Labs
Vital Signs
Temp Pulse Resp BP Pulse Ox
98.9 F 86 16 117/56 93
11/20/23 08:00 11/20/23 08:00 11/20/23 08:00 11/20/23 07:00 11/20/23 08:00
11/19/23 11/20/23 11/21/23
06:59 06:59 06:59
Actual Weight 188 lb 4.396 oz 198 lb 6.656 oz
11/20/23 04:14
11/20/23 04:14
PT 18.2 Sec (11.4-14.6) H 11/19/23 14:18
INR 1.50 11/19/23 14:18
APTT 30.4 Sec (23.4-35.0) 11/19/23 14:18
Magnesium 2.3 mg/dl (1.6-2.3) 11/20/23 04:14
Magnesium Cancelled 11/20/23 04:14
Physical Exam
Constitutional: No acute distress and Comfortable
EENT: Anicteric
Cardiovascular: Rhythm & rate is regular and Pedal edema is absent
Respiratory: Respiratory effort normal and Lungs clear to auscul.
GI: Soft
Neuro/Psych: AO x 3
Data Reviewed
-
Date of Service: November 20, 2023
Medical Decision Making: Reviewed Test Results
EKG: Tracing Personally Visualized and interpreted (sr)
Echo: Report Reviewed by me
Labs: Labs Reviewed by me
[2023-11-20] MEDS: LIDOCAINE 4% PATCH 1 PATCH TOPICAL (08:29)
[2023-11-20] MEDS: NOVOLOG FLEXPEN SC ×3 (08:32→17:02)
--- NOTE | 2023-11-20 09:25 | W.PN.INTV ---
Today's Communication / Plan
Recommendations
Pain control
Wean down supplemental O2 maintaining SpO2 >90-94%
Cardiac rehab consult
Encourage incentive spirometer use
Continue weaning off insulin drip per protocol, with goal BG 140�180
Functional Tester services will continue to follow along while patient remains in CVICU; once downgraded to CVICU�telemetry then we will sign off at that time
Assessment
-
Assessment: 83-year-old male with a remote tobacco smoking history (quit approximately 55 years ago) with a past medical history of CAD s/p multiple stents + rotational atherectomy, severe aortic stenosis s/p TAVR, CVA with residual right hand
sensation deficit, hypertension, hyperlipidemia, DM type II on insulin, severe REX on CPAP, GERD c/b Beach's esophagus, history of paraesophageal hernia and essential tremor who presents with CABG. Patient known to cardiothoracic surgery with
last encounter with him during prior hospitalization from 11/02 - 11/04/2023 when he was admitted for exertional chest pain and LHC on 11/03/2023 showed severe CAD involving apical LAD, LCx , ostial LCx and RCA. CT surgery consulted who rec'd PCI,
which he obtained on 11/12/2023 which was unsuccessful as guidewire was unable to traverse the mid and distal LCx artery. Echo on 11/13/2023 showed LVEF 50% with grade II diastolic dysfunction, hypokinesis in basal-mid inferolateral wall and basal
inferior wall. Surgical revascularization was recommended by CT surgery - on 11/19/2023 he underwent CABG x2. He was TRX to CVICU post-operatively for further care, and now plastics heat welder services consulted for additional management/recommendations.
Chronic conditions MISDRAW HAND: CAD s/p multiple stents + rotational atherectomy, history of severe aortic stenosis s/p TAVR (10/2021 � [facility]), history of CVA (10/2019) with residual right hand sensation deficit, hypertension, hyperlipidemia, obesity, DM type
II on insulin, remote tobacco abuse, diabetic neuropathy, severe REX on CPAP, Beach's esophagus, GERD, history of paraesophageal hernia s/p repair, hearing impairment, essential tremor, detached retina (April 2023), hiatal hernia
Impression:
#Recurrent CAD with Hx of multiple stents and rotational atherectomy s/p CABG x 2 (POD #1)
#Hx of severe s/p TAVR (10/2021 - [facility])
#Hx of severe REX on CPAP
#Remote tobacco use
#DM type II
#Obesity (BMI: 31.3)
#History of GERD c/b Beach's esophagus
#Abnormal chest CT with mild lower lobe predominant bronchiectasis and small FERNIE GGO measuring 3mm
Plan:
Patient successfully extubated on 11/19/2023 and is now breathing comfortably on supplemental oxygen on 4 L/min saturating 96%
Continue with supplemental O2 and titrate down to maintain SpO2 >90-94%
prn nebulized bronchodilators
Aspiration precautions
Removal of R�IJ cordis as per CT surgery team
Maintain MAP>65
Replete electrolytes with K>4, Mg>2
Monitor chest tube output (right pleural chest tube x1 and mediastinal chest tubes x2)
Monitor hemoglobin
Monitor platelet count and coags
Transfuse blood products as needed to maintain Hb>7g/dL, plt>50k (given post-operative status)
CT surgery managing chest tubes
Monitor blood sugar to maintain euglycemia with goal BG 140-180
Insulin drip per protocol
Aspiration precautions
DVT prophylaxis
Early nutrition
Early mobilization
He has a very subtle left upper lobe 3-4 mm groundglass opacity seen on CT chest from 11/13/2023. I will arrange for outpatient office follow-up to discuss radiographic surveillance with repeat imaging in about 3-6 months.
Patient will continue to be on insulin drip and remain CVICU status. Once downgraded to CVICU�telemetry, then we will sign off at that time.
Critical care statement: A total of 41 minutes of critical care time was provided for this patient today. This includes management of ventilator, spontaneous breathing trial, arterial blood gases, pressors, of unstable vital signs, evaluation of the
patient at bedside, reviewing the patient's pertinent medical records including radiographs, microbiology, laboratory evaluations, and discussion with primary team and critical care nursing.
CXR 11/20/2023: Small bilateral pleural effusions with associated atelectasis, similar to prior.
CT Chest 11/13/2023:
1. Mildly increased interstitial opacity as above, probable mild interstitial edema. Small amount of gravity dependent atelectasis. No consolidation or pneumothorax.
2. Moderate aortic atherosclerosis. Mild ectasia of the aorta at the distal arch, 3.6 cm diameter. Aberrant right subclavian artery, normal anatomic variation. Severe coronary artery calcification and probable coronary stents.
3. Dilation of the right pulmonary artery, 4 cm diameter. While this could be related to pulmonary arterial hypertension, it is out of proportion to the main and left pulmonary arteries therefore indeterminate.
Subjective Dataa
Subjective Data
Date of Service:
Date of Service: November 20, 2023
Chief Complaint: Functional Tester Follow Up
Subjective:
Patient was seen and evaluated today at bedside. Resting in chair in no acute distress. Currently on insulin drip at 1.5 units/hr. heart rate 81, BP 112/53 and saturating 96% on 4 L/min nasal cannula. No acute events reported from overnight. He
has some postoperative chest discomfort but no SOB, VILLAFUERTE, abdominal pain, fevers or chills.
Review of Systems
General: Other (Negative unless mentioned above)
Objective Data
Data Reviewed
Vital Signs / I&O / Oxygen:
Vital Signs
Temp Pulse Resp BP Pulse Ox
98.9 F 77 11 134/55 93
11/20/23 09:00 11/20/23 09:00 11/20/23 09:00 11/20/23 08:23 11/20/23 09:13
Intake and Output
11/19/23 11/20/23 11/21/23
06:59 06:59 06:59
Intake Total 1096.0 / 1121.0 48.8 / 48.8
Output Total 1030 / 1080 90 / 90
Balance 66.0 / 41.0 -41.2 / -41.2
SaO2 93
Nasal Cannula flow liters per 3
minute
Physical Exam
General: Respiratory Distress (negative), Comfortable, Chills (negative) and Sweats (negative)
HEENT: Normocephalic and Anicteric
Cardiovascular: S1-S2 and Peripheral Edema (negative)
Respiratory: Clear, Wheeze (negative), Crackles (negative), Rhonchi (negative) and Chest Tube (Right pleural chest tube + mediastinal chest tubes x 2)
GI: Soft, Distended (Abdominal obesity), Non Tender and Normal Bowel Sounds
Neurology: Tremors (negative) and Other (Sleeping in no acute distress and easily arousable to voice/tactile stimulation)
Skin: Warm, Dry and Jaundice (negative)
Labs/Micro/Reports
Lab Data
11/20/23 04:14
11/20/23 04:14
Laboratory Results
11/19/23 11/19/23 11/19/23
14:18 16:59 21:17
PT 18.2 H
INR 1.50
APTT 30.4
pH 7.38 7.35 7.35
pCO2 44 44 42
pO2 127 H 132 H 91
HCO3 26.0 24.3 23.2
O2 Delivery Level vent
Microbiology
11/16/23 08:39 Nose MRSA Screen - Final
No Methicillin Resistant Staphylococcus aureus isolated.
[2023-11-20] MEDS: OCUVITE SOFTGEL 2 CAP PO ×2 (09:46→20:19)
[2023-11-20 10:05] LABS: Glucose - Point of Care 99 mg/dl (70-99)
--- NOTE | 2023-11-20 10:12 | PTCARENOTE ---
VSS, NSR with occasional PVC's. Dobutamine d/c'ed per order. [place] and A-line d/c'ed per orders, med list discussed and updated. Cardiac rehab to see pt this am. pt resting comfortably in bed.
[2023-11-20] MEDS: PRED FORTE 1% EYE DROPS 1 DROP LEFT EYE (10:30)
--- NOTE | 2023-11-20 11:55 | PTCARENOTE ---
VSS. NSR with occasional PVC's on monitor. Pt OOB to chair with cardiac rehab and 1 nurse assist. minimal drainage from C/T's. O2 increase to 4L due to dyspnea. POX: 91%. Pt resting comfortably in chair.
--- NOTE | 2023-11-20 12:03 | CM ---
Reviewed chart. Met with Mr. Headley to review discharge plans. He states he is feeling okay. Prior to admission he resides with his daughter in a one story home with one step to enter. Prior to admission he was independent with ambulation and
adls. 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 He does not have any DME in the home. He has a prescription plan. His daughter works nights and goes to school. His granddaughter will stay with him for two weeks because she can work remote. Medical
work-up in progress. The discharge plan is to return home with his daughter and granddaughter staying with two weeks and a hoe visit by the Cardiothoracic Transitional Care Nurse when medically stable.
[2023-11-20 12:15] LABS: Glucose - Point of Care 141 mg/dl (70-99)
[2023-11-20] MEDS: DILAUDID 0.25 MG IV (12:20)
[2023-11-20] MEDS: ROXICODONE 5 MG PO (12:21)
--- NOTE | 2023-11-20 12:50 | PN.CDI ---
CDI
- -
CDI:
Physician Documentation Request
Admit Date: 11/19/23 04:36
Dear Doctor You,
Patient is s/p CABG.
OR report states 'angina/SINGH'
H&P states '...experiencing exertional chest pain that is occurred over 3 years,now more frequent with less exertion'
Please further specify the type of angina.
Stable
unstable
refractory
Other
Use of terms such as suspected, likely, concern for, or probable (associated with a specific diagnosis that is being evaluated, monitored, or treated as if it exists) are acceptable and can be coded in the inpatient setting, when documented at the
time of discharge.
Thank you,
Aby Ordaz RN BSN
CDI Specialist
tiger text
Please use your independent medical judgment in providing your response.
--- NOTE | 2023-11-20 12:57 | PN.CDI ---
CDI
- -
CDI:
Physician Documentation Request
Admit Date: 11/19/23 04:36
Dear Doctor You,
The diagnosis of Bifascicular block was included in the signed EKG 11/19.
Please indicate in your progress notes if you are in agreement that the above diagnosis is valid for this patient:
____ - Bifascicular block is a valid diagnosis (Please include it in your progress notes)
____ - Bifascicular block is not a valid diagnosis for this patient
____ - Other
Use of terms such as suspected, likely, concern for, or probable are acceptable for a diagnosis that is being evaluated, monitored or treated as if it exists and can be coded in the inpatient setting, when documented at the time of discharge.
Thank you,
Aby Ordaz RN, BSN
CDI Specialist
tiger text
Please use your independent medical judgment in providing your response.
[2023-11-20] MEDS: TORADOL 15 MG IV (13:41)
[2023-11-20 14:08] LABS: Glucose - Point of Care 143 mg/dl (70-99)
[2023-11-20] MEDS: NSS IV (14:21)
--- NOTE | 2023-11-20 14:54 | PTCARENOTE ---
VSS, NSR with occasional PVC's on monitor, B/P 122/95, HR:94. Pt c/o sternal incision pain. Pain management given (see MAR). Pt resting comfortably in chair.
[2023-11-20 16:31] LABS: Glucose - Point of Care 114 mg/dl (70-99)
[2023-11-20] MEDS: LOPRESSOR 12.5 MG PO (17:33)
--- NOTE | 2023-11-20 17:44 | PTCARENOTE ---
VSS, Pt in Sinus tach with PVC's on monitor. 1999 ordered Met[address] given per [address] FRONT DESK AUXILIARY now. Will follow.
[2023-11-20 18:05] LABS: Glucose - Point of Care 162 mg/dl (70-99)
[2023-11-20 20:08] LABS: Glucose - Point of Care 127 mg/dl (70-99)
[2023-11-20] MEDS: CALCIUM CHLORIDE 10% SYRINGE 60 MG IV (20:19)
[2023-11-20] MEDS: KEPPRA 500 MG PO (20:31)
[2023-11-20 21:12] LABS: Glucose - Point of Care 134 mg/dl (70-99)
--- NOTE | 2023-11-20 21:50 | PTCARENOTE ---
Received patient for 7p-7a. Pt AAOx3, without complaints. Insulin and kvo infusing via RIJ cordis without issues. SR with PVCs on manager cardiac cath, VSS. IS up to 750, encouraged. CT x3 to suction, serosanguineous drainage. Pt DTV at 2245. Medications
administered as ordered. Pt denies pain at this time. Will continue to monitor.
[2023-11-20 22:06] LABS: Glucose - Point of Care 102 mg/dl (70-99)
--- NOTE | 2023-11-20 22:47 | PTCARENOTE ---
Patient DTV at 2245. Pt unable to void, denies the urge to void at this time. Bladder scanned for 192ml. Will follow protocol and rescan patient in 2 hours if he does not void. Will continue to monitor.
[2023-11-20 23:13] LABS: Glucose - Point of Care 126 mg/dl (70-99)
--- NOTE | 2023-11-20 23:37 | PTCARENOTE ---
Patient bladder scanned for 192 ml at 2245. Pt voided 150ml clear, neeta urine at 2315 without issues. IV insulin and kvo infusing via RIJ cordis without issues. Glycemic protocol maintained. NSR with bbb and pvc's on monitor technician, unchanged from
previous, VSS. Medications administered as ordered. Patient denies pain at this time, resting comfortably. Will continue to monitor.
[2023-11-21] VITALS (19 sets, daily range): BP systolic 95–146; BP diastolic 43–65; PULSE 65; O2SAT 97; BMI 32.7
[2023-11-21 00:16] LABS: Glucose - Point of Care 107 mg/dl (70-99)
[2023-11-21 02:16] LABS: Glucose - Point of Care 98 mg/dl (70-99)
[2023-11-21] MEDS: TORADOL 15 MG IV (02:48)
[2023-11-21 04:21] LABS: Glucose - Point of Care 130 mg/dl (70-99)
[2023-11-21] MEDS: NOVOLIN R INSULIN INFUSION 100 IV ×2 (04:37→15:36)
--- NOTE | 2023-11-21 04:47 | PTCARENOTE ---
Patient reassessed, assessment unchanged from previous. VSS, NSR with bbb and pvc's on front desk monitor. Insulin gtt maintained per glycemic protocol. RIJ cordis kvo infusing without complications. Pt medicated for pain. Labs drawn and sent. CT x 3
with serosanguineous drainage to wall suction. Pt voiding without complications. Will continue to monitor.
[2023-11-21 04:51] LABS: Hematocrit 23.2 % (39.0-52.0); Hemoglobin 8.1 g/dL (13.0-18.0); Mean Corp Hgb Conc. 34.9 g/dL (33.0-37.0); Mean Corpuscular Volume 88.9 fL (80.0-94.0); Mean Platelet Volume 9.6 fL (7.4-10.4); Platelet Count 112 10^3/uL (130-400); Red Blood Cell Count 2.61 10^6/uL (4.70-6.10)
[2023-11-21 05:14] LABS: Blood Urea Nitrogen 37 mg/dl (9-20); Calcium 8.9 mg/dl (8.4-10.2); Carbon Dioxide 27 mmol/L (22-30); Chloride 99 mmol/L (98-107); Estimated Creatinine Clearance 65 ml/min; Glucose 122 mg/dl (70-99); Magnesium 2.6 mg/dl (1.6-2.3); Potassium 4.2 mmol/L (3.5-5.1); Sodium 134 mmol/L (135-145); eGFR > 60.00
[2023-11-21] MEDS: TYLENOL 1000 MG PO ×3 (06:06→21:19)
[2023-11-21 06:10] LABS: Glucose - Point of Care 110 mg/dl (70-99)
--- NOTE | 2023-11-21 06:19 | W.PN.CT ---
Today's Communication / Plan
-
Plan:
-No major issues overnight. Hemodynamically and neurologically intact
-Weaned off of Dobutamine yesterday, currently only on insulin gtt per protocol. Transfer to [facility] phase today once off insulin gtt
-BP has been soft postop, improving
-Noted to be tachycardic with ectopies yesterday, improved after receiving Amiodarone and BB
-Cont. current meds (ASA, Plavix, Lipitor, Zetia, Amio, Protonix)
-Holding mag oxide today, mg 2.6
-Consider D/C of chest tubes: 2meds 45/215, R Pleural 40/210
-Monitor h/h 8.1/23.2 and sodium 134. Likely d/t hypervolemia. Fluid restriction today, diuresis if BP permits
-Wean off of O2
-Encourage use of IS
-Maintain cordis another day
-Maintain temporary PW (will cut before d/c home)
-OOB into chair, Ambulate
Assessment / Plan
-
- Ostial & proximal LCx CAD not amenable to PCI- s/p CABG x 2 (GSV to OM1, GSV to OM4 [LPDA] on 11/19/[address] Orta, pod #2
- Post-MARGARITA: LVEF 60-65% w/ inferobasal hypokinesia (unchanged), mild MR, mild TR, TAVR w/ mean 13mmHg w/ mild PVL
- HTN/HLD
- CAD with stents 2013 and 2021
- s/p TAVR 2021
- Class 1 obesity (BMI 31)
- DM II
- REX, on CPAP
- CVA with R hand sensation deficit
- Chronic RBBB
- GERD/ Beach's esophagitis s/p hiatal hernia repair
- Former smoker
- Acute postop blood loss anemia
- Acute postop thrombocytopenia
- Acute postop atelectasis
- Acute postop hypovolemia with subsequent hypervolemia
- Acute postop tachycardia
Discussed patient care with: Cardiology, Nursing, Respiratory Therapy, Pharmacy and Care Team
Subjective
Procedure
s/p CABG x 2 (GSV to OM1, GSV to OM4 [LPDA] on 11/19/[address] Orta
-
Date of Service: November 21, 2023
Pt c/o mild incisional pain, otherwise feels well
Objective Data
-
Lab Results
11/21/23 04:31
11/21/23 04:31
PT 18.2 Sec (11.4-14.6) H 11/19/23 14:18
INR 1.50 11/19/23 14:18
APTT 30.4 Sec (23.4-35.0) 11/19/23 14:18
Vital Signs
Vital Signs
Temp Pulse Resp BP Pulse Ox
98.5 F 73 20 104/47 98
11/21/23 04:00 11/21/23 06:00 11/21/23 04:00 11/21/23 06:00 11/21/23 06:00
CT Intake/Output/Weight
11/20/23 11/20/23 11/21/23
06:59 18:59 06:59
Intake Total 907.2 / 1121.0 1131.1 / 1634.5 503.4 / 1634.5
Output Total 535 / 1080 675 / 1810 1135 / 1810
Balance 372.2 / 41.0 456.1 / -175.5 -631.6 / -175.5
SaO2: 98 (4L )
Physical Exam
-
General: Awake, Oriented and AOx3
Cardiovascular: Regular rate & rhythm, No Murmurs, No Rub and No Gallop
Respiratory: Decreased Breath Sounds
Sternum: Stable
Incision: Clean, Dry, Intact and Dressing Intact
Extremities: Other (+trace edema)
Data Reviewed
-
Lab Results: Results Reviewed
Medications: Active Meds Reviewed
Chest X-Ray: Report Reviewed and Image Reviewed
ECG: Report Reviewed and Image Reviewed
[2023-11-21 08:05] LABS: Glucose - Point of Care 191 mg/dl (70-99)
[2023-11-21] MEDS: LOPRESSOR 12.5 MG PO ×2 (08:18→20:10)
[2023-11-21] MEDS: BACTROBAN 2% OINTMENT 1 APPLIC NASAL ×2 (08:18→20:11)
[2023-11-21] MEDS: ZETIA 10 MG PO (08:18)
[2023-11-21] MEDS: KEPPRA 500 MG PO ×2 (08:18→20:23)
[2023-11-21] MEDS: PACERONE 200 MG PO ×3 (08:18→21:20)
[2023-11-21] MEDS: LASIX 20 MG IV (08:19)
[2023-11-21] MEDS: KCL 20 MEQ PO (08:19)
[2023-11-21] MEDS: NEURONTIN 100 MG PO ×3 (08:23→21:19)
[2023-11-21] MEDS: OCUVITE SOFTGEL 2 CAP PO ×2 (08:23→20:10)
[2023-11-21] MEDS: LIPITOR 40 MG PO (08:24)
[2023-11-21] MEDS: PROTONIX 40 MG PO (08:24)
[2023-11-21] MEDS: PLAVIX 75 MG PO (08:24)
[2023-11-21] MEDS: SENOKOT-S 1 TABLET PO ×2 (08:24→20:10)
[2023-11-21] MEDS: LOW STRENGTH ASPIRIN 81 MG PO (08:24)
[2023-11-21] MEDS: VITAMIN D3 (cholecalciferol) 50 MCG PO (08:24)
[2023-11-21] MEDS: LIDOCAINE 4% PATCH TOPICAL (08:27)
--- NOTE | 2023-11-21 09:00 | PTCARENOTE ---
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 NSR via cm, SaO2 @ 97% on 4lnc. Assisted to bathroom, voided - SINGH, SaO2 s/p ambulation @ 91% on 4l. RIJ Cordis w/kvo infusing. Epicardial V-wire,
insulated to chest wall. R pleural, mediastinal chest tubes x 2 (to separate pleurevacs), both to -20cm suction, no air leaks noted. Procedural sites stable. Insulin infusing peripherally, titrating per glycemic protocol. Patient updated to plan of
care for the day, in agreement. See work list for full assessment and interventions performed.
--- NOTE | 2023-11-21 09:01 | W.PN.INTV ---
Today's Communication / Plan
Recommendations
Pain control
Wean down supplemental O2 maintaining SpO2 >90-94%
Cardiac rehab consult
Encourage incentive spirometer use
Goal BG 140�180
Patient will be removed from insulin drip later today, and then will be downgraded to CVICU�telemetry status. Band Maker/Pulmonary service will now sign off. Please reconsult if there are any additional questions/concerns, or if patient's
respiratory status deteriorates.
Assessment
-
Assessment: 83-year-old male with a remote tobacco smoking history (quit approximately 55 years ago) with a past medical history of CAD s/p multiple stents + rotational atherectomy, severe aortic stenosis s/p TAVR, CVA with residual right hand
sensation deficit, hypertension, hyperlipidemia, DM type II on insulin, severe REX on CPAP, GERD c/b Beach's esophagus, history of paraesophageal hernia and essential tremor who presents with CABG. Patient known to cardiothoracic surgery with
last encounter with him during prior hospitalization from 11/02 - 11/04/2023 when he was admitted for exertional chest pain and LHC on 11/03/2023 showed severe CAD involving apical LAD, LCx , ostial LCx and RCA. CT surgery consulted who rec'd PCI,
which he obtained on 11/12/2023 which was unsuccessful as guidewire was unable to traverse the mid and distal LCx artery. Echo on 11/13/2023 showed LVEF 50% with grade II diastolic dysfunction, hypokinesis in basal-mid inferolateral wall and basal
inferior wall. Surgical revascularization was recommended by CT surgery - on 11/19/2023 he underwent CABG x2. He was TRX to CVICU post-operatively for further care, and now facing end trimmer services consulted for additional management/recommendations.
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
II on insulin, remote tobacco abuse, diabetic neuropathy, severe REX on CPAP, Beach's esophagus, GERD, history of paraesophageal hernia s/p repair, hearing impairment, essential tremor, detached retina (April 2023), hiatal hernia
Impression:
#Recurrent CAD with Hx of multiple stents and rotational atherectomy s/p CABG x 2 (POD #2)
#Hx of severe s/p TAVR (10/2021 - [facility])
#Hx of severe REX on CPAP
#Remote tobacco use
#DM type II
#Obesity (BMI: 31.3)
#History of GERD c/b Beach's esophagus
#Abnormal chest CT with mild lower lobe predominant bronchiectasis and small FERNIE GGO measuring 3mm
Plan:
Patient successfully extubated on 11/19/2023 and is now breathing comfortably on supplemental oxygen on 2 L/min saturating 96%
Continue with supplemental O2 and titrate down to maintain SpO2 >90-94%
prn nebulized bronchodilators
Aspiration precautions
Removal of R�IJ cordis as per CT surgery team
Maintain MAP>65
Replete electrolytes with K>4, Mg>2
Chest tubes now discontinued
Monitor hemoglobin
Monitor platelet count and coags
Transfuse blood products as needed to maintain Hb>7g/dL, plt>50k (given post-operative status)
Monitor blood sugar to maintain euglycemia with goal BG 140-180
Insulin drip per protocol --> plan to come off of insulin drip this evening and then would continue with SQ insulin supplementation to maintain BG goal as above
Aspiration precautions
DVT prophylaxis
Early nutrition
Early mobilization
He has a very subtle left upper lobe 3-4 mm groundglass opacity seen on CT chest from 11/13/2023. I will arrange for outpatient office follow-up to discuss radiographic surveillance with repeat imaging in about 3-6 months.
Patient will be removed from insulin drip later today, and then will be downgraded to CVICU�telemetry status. Band Maker/Pulmonary service will now sign off. Thank you for allowing us to be involved in the care of this patient. Please reconsult
if there are any additional questions/concerns, or if patient's respiratory status deteriorates.
Total time spent today was 55 minutes for this encounter. Time includes reviewing laboratory test/imaging results, reviewing pertinent medical records, obtaining and reviewing medical history, performing an appropriate exam, ordering medications,
tests and procedures. Time also includes documentation of this encounter, coordinating patient care and communicating with other healthcare professionals. Total time does not include separately billed tests performed on this date of service.
Data:
CXR 11/20/2023: Small bilateral pleural effusions with associated atelectasis, similar to prior.
CXR 11/21/2023: Right internal jugular central venous catheter has been exchanged for a vascular sheath. Inferior mediastinal and right chest tube catheters remain in place. No pneumothorax identified; The cardiomediastinal margins are stable.
Previous trace right pleural effusion appears to have improved. Slightly increased opacity at the left lung base could suggest slightly increased pleural effusion versus parenchymal opacity such as atelectasis or pneumonia at the left lung base.
CT Chest 11/13/2023:
1. Mildly increased interstitial opacity as above, probable mild interstitial edema. Small amount of gravity dependent atelectasis. No consolidation or pneumothorax.
2. Moderate aortic atherosclerosis. Mild ectasia of the aorta at the distal arch, 3.6 cm diameter. Aberrant right subclavian artery, normal anatomic variation. Severe coronary artery calcification and probable coronary stents.
3. Dilation of the right pulmonary artery, 4 cm diameter. While this could be related to pulmonary arterial hypertension, it is out of proportion to the main and left pulmonary arteries therefore indeterminate.
Subjective Dataa
Subjective Data
Date of Service:
Date of Service: November 21, 2023
Chief Complaint: Band Maker Follow Up
Subjective:
Patient was seen and evaluated today at bedside. Currently on insulin drip at 2.6 units/hr. heart rate 72, BP 115/51, and saturating 95% on 2 L/min. He denies shortness of breath or chest pain, VILLAFUERTE, abdominal pain, fevers or chills.
Review of Systems
General: Other (Negative unless mentioned above)
Objective Data
Data Reviewed
Vital Signs / I&O / Oxygen:
Vital Signs
Temp Pulse Resp BP Pulse Ox
98.6 F 72 19 111/43 97
11/21/23 07:45 11/21/23 08:19 11/21/23 07:45 11/21/23 08:19 11/21/23 07:45
Intake and Output
11/20/23 11/21/23 11/22/23
06:59 06:59 06:59
Intake Total 1096.0 / 1121.0 1634.5 / 1646.8 290.6 / 290.6
Output Total 1030 / 1080 1960 / 1960
Balance 66.0 / 41.0 -325.5 / -313.2 290.6 / 290.6
SaO2 97
Nasal Cannula flow liters per 4
minute
Physical Exam
General: Respiratory Distress (negative), Comfortable, Chills (negative) and Sweats (negative)
HEENT: Normocephalic and Anicteric
Cardiovascular: S1-S2, Murmur (LUSB) and Peripheral Edema (negative)
Respiratory: Clear, Wheeze (negative), Crackles (negative) and Rhonchi (negative)
GI: Soft, Distended (Abdominal obesity), Non Tender and Normal Bowel Sounds
Neurology: AO x 3 and Tremors (negative)
Skin: Warm, Dry and Jaundice (negative)
Labs/Micro/Reports
Lab Data
11/21/23 04:31
11/21/23 04:31
[2023-11-21 09:13] LABS: Glucose - Point of Care 201 mg/dl (70-99)
[2023-11-21] MEDS: NOVOLOG FLEXPEN 4 UNITS SC ×3 (10:00→18:07)
[2023-11-21] MEDS: PRED FORTE 1% EYE DROPS 1 DROP LEFT EYE (10:39)
[2023-11-21 10:43] LABS: Glucose - Point of Care 175 mg/dl (70-99)
--- NOTE | 2023-11-21 12:00 | PTCARENOTE ---
Chest tubes d/c'd as ordered by this RN and RN assist. Patient tolerated well. VS obtained, stable. Patient resting comfortably.
[2023-11-21 12:40] LABS: Glucose - Point of Care 105 mg/dl (70-99)
[2023-11-21] MEDS: NOVOLOG FLEXPEN SC (12:40)
[2023-11-21] MEDS: NSS 500 IV (14:05)
[2023-11-21 14:35] LABS: Glucose - Point of Care 171 mg/dl (70-99)
[2023-11-21 16:05] LABS: Glucose - Point of Care 156 mg/dl (70-99)
[2023-11-21 18:00] LABS: Glucose - Point of Care 132 mg/dl (70-99)
--- NOTE | 2023-11-21 20:00 | PTCARENOTE ---
assumed care of pt from previous RN. pt A&Ox4, resting in chair at time of assessment. flat affect noted. SR w/ BBB on tele-monitor. temp epicardial v-wires insulated. POX 95% on 2 L NC. abd round, obese. +BS. voiding clear, yellow urine. all
surgical sites stable. R IJ cordis w/ KVO. PIV intact. see worklist for complete nursing assessment, interventions, VS, and I&Os.
[2023-11-21] MEDS: KEPPRA PO (20:10)
[2023-11-21] MEDS: LANTUS 0.28 UNITS SC (20:10)
[2023-11-21 20:20] LABS: Glucose - Point of Care 124 mg/dl (70-99)
[2023-11-21 21:55] LABS: Glucose - Point of Care 116 mg/dl (70-99)
[2023-11-22] VITALS (8 sets, daily range): BP systolic 113–164; BP diastolic 49–73; PULSE 78–82; O2SAT 96; BMI 32.3
--- NOTE | 2023-11-22 | PTCARENOTE ---
assessment remains unchanged. VSS. POX 94% on 2 L NC.
[2023-11-22 04:26] LABS: Hematocrit 24.1 % (39.0-52.0); Hemoglobin 8.2 g/dL (13.0-18.0); Mean Corpuscular Hgb 29.5 pg (27.0-31.0); Mean Corpuscular Volume 86.7 fL (80.0-94.0); Mean Platelet Volume 9.3 fL (7.4-10.4); Platelet Count 133 10^3/uL (130-400); Red Blood Cell Count 2.78 10^6/uL (4.70-6.10); Red Cell Dist. Width 14.3 % (11.5-14.5); White Blood Cell Count 8.2 10^3/uL (4.8-10.8)
[2023-11-22 04:51] LABS: Blood Urea Nitrogen 29 mg/dl (9-20); Calcium 9.1 mg/dl (8.4-10.2); Carbon Dioxide 29 mmol/L (22-30); Chloride 104 mmol/L (98-107); Estimated Creatinine Clearance 73 ml/min; Glucose 141 mg/dl (70-99); Magnesium 2.5 mg/dl (1.6-2.3); Potassium 4.3 mmol/L (3.5-5.1); Sodium 139 mmol/L (135-145); eGFR > 60.00
--- NOTE | 2023-11-22 04:58 | W.PN.CT ---
Today's Communication / Plan
-
Plan:
-No major issues overnight. Hemodynamically and neurologically intact
-Off all drips, transferred to tele phase while off insulin gtt
-Diabetes management following
-BP has been soft postop, improving
-Noted to be tachycardic with ectopies postop, improved on Amiodarone and Lopressor (was on Labetalol @ home)
-Cont. current meds (ASA, Plavix, Lipitor, Zetia, Amio, Lopressor, Protonix)
-Holding mag oxide today, mg 2.6
-D/C cordis
-H/H improved from 8.1/23.2 -> 8.2/24.1, and sodium 134-> 139. Likely d/t hypervolemia. Fluid restriction today, diuresis if BP permits
-Wean off of O2
-Encourage use of IS
-Maintain temporary PW (will cut before d/c home)
-OOB into chair, Ambulate
-Likely d/c home tomorrow
Assessment / Plan
-
- Ostial & proximal LCx CAD not amenable to PCI- s/p CABG x 2 (GSV to OM1, GSV to OM4 [LPDA] on 11/19/[address] Orta, pod #3
- Post-MARGARITA: LVEF 60-65% w/ inferobasal hypokinesia (unchanged), mild MR, mild TR, TAVR w/ mean 13mmHg w/ mild PVL
- HTN/HLD
- CAD with stents 2013 and 2021
- s/p TAVR 2021
- Class 1 obesity (BMI 31)
- DM II
- REX, on CPAP
- CVA with R hand sensation deficit
- Chronic RBBB
- GERD/ Beach's esophagitis s/p hiatal hernia repair
- Former smoker
- Acute postop blood loss anemia
- Acute postop thrombocytopenia
- Acute postop atelectasis
- Acute postop hypovolemia with subsequent hypervolemia
- Acute postop tachycardia
Discussed patient care with: Cardiology, Nursing, Respiratory Therapy, Pharmacy and Care Team
Subjective
Procedure
s/p CABG x 2 (GSV to OM1, GSV to OM4 [LPDA] on 11/19/[address] Orta
-
Date of Service: November 22, 2023
Pt c/o mild incisional pain, otherwise feels well
Objective Data
-
Lab Results
11/22/23 04:05
11/22/23 04:05
PT 18.2 Sec (11.4-14.6) H 11/19/23 14:18
INR 1.50 11/19/23 14:18
APTT 30.4 Sec (23.4-35.0) 11/19/23 14:18
Vital Signs
Vital Signs
Temp Pulse Resp BP Pulse Ox
98.2 F 79 18 152/58 95
11/22/23 04:00 11/22/23 04:07 11/22/23 04:00 11/22/23 04:07 11/22/23 04:07
CT Intake/Output/Weight
11/21/23 11/21/23 11/22/23
06:59 18:59 06:59
Intake Total 503.4 / 1646.8 604.6 / 727.2 122.6 / 727.2
Output Total 1285 / 1960 250 / 650 400 / 650
Balance -781.6 / -313.2 354.6 / 77.2 -277.4 / 77.2
SaO2: 95 (2L)
Physical Exam
-
General: Awake, Oriented and AOx3
Cardiovascular: Regular rate & rhythm, No Murmurs, No Rub and No Gallop
Respiratory: Decreased Breath Sounds (at bases, otherwise clear)
Sternum: Stable
Incision: Clean, Dry, Intact and Dressing Intact
Extremities: Other (+trace edema)
Data Reviewed
-
Lab Results: Results Reviewed
Medications: Active Meds Reviewed
Chest X-Ray: Report Reviewed and Image Reviewed
ECG: Report Reviewed and Image Reviewed
[2023-11-22] MEDS: FLEXERIL 5 MG PO (06:35)
[2023-11-22] MEDS: TYLENOL 1000 MG PO ×3 (06:35→20:29)
[2023-11-22] MEDS: NOVOLOG FLEXPEN SC ×3 (07:06→16:04)
[2023-11-22 07:31] LABS: Glucose - Point of Care 138 mg/dl (70-99)
[2023-11-22] MEDS: LIDOCAINE 4% PATCH TOPICAL (07:52)
--- NOTE | 2023-11-22 07:53 | PTCARENOTE ---
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 NSR via cm, SaO2 @ 92% on RA - patient denies SOB. RIJ Cordis w/kvo infusing. Epicardial V-wire, insulated to chest wall. All procedural sites stable. Patient
updated to plan of care for the day, in agreement. See work list for full assessment and interventions performed.
[2023-11-22] MEDS: PRED FORTE 1% EYE DROPS 1 DROP LEFT EYE (08:23)
[2023-11-22] MEDS: LANTUS 0.28 UNITS SC ×2 (08:23→20:35)
[2023-11-22] MEDS: OCUVITE SOFTGEL 2 CAP PO ×2 (08:24→20:29)
[2023-11-22] MEDS: LOPRESSOR 12.5 MG PO ×2 (08:24→20:30)
[2023-11-22] MEDS: KCL 20 MEQ PO (08:24)
[2023-11-22] MEDS: ZETIA 10 MG PO (08:24)
[2023-11-22] MEDS: PROTONIX 40 MG PO (08:24)
[2023-11-22] MEDS: SENOKOT-S 1 TABLET PO ×2 (08:24→20:29)
[2023-11-22] MEDS: PACERONE 200 MG PO ×3 (08:25→20:30)
[2023-11-22] MEDS: LASIX 20 MG IV (08:25)
[2023-11-22] MEDS: LOW STRENGTH ASPIRIN 81 MG PO (08:25)
[2023-11-22] MEDS: LIPITOR 40 MG PO (08:25)
[2023-11-22] MEDS: KEPPRA 500 MG PO ×2 (08:25→20:29)
[2023-11-22] MEDS: NEURONTIN 100 MG PO ×3 (08:25→20:29)
[2023-11-22] MEDS: PLAVIX 75 MG PO (08:25)
[2023-11-22] MEDS: BACTROBAN 2% OINTMENT 1 APPLIC NASAL ×2 (08:25→20:29)
[2023-11-22] MEDS: VITAMIN D3 (cholecalciferol) 50 MCG PO (08:26)
--- NOTE | 2023-11-22 12:20 | PTCARENOTE ---
VS obtained, assessment stable. Patient assisted to ambulate ceron for walk approximately 150 feet, tolerated well. Settled to chair, lunch ordered.
[2023-11-22 12:53] LABS: Glucose - Point of Care 180 mg/dl (70-99)
[2023-11-22] MEDS: NSS IV (13:58)
--- NOTE | 2023-11-22 16:11 | PTCARENOTE ---
VS obtained, assessment stable. Patient resting comfortably oob, denies pain.
[2023-11-22 17:34] LABS: Glucose - Point of Care 127 mg/dl (70-99)
[2023-11-22 20:43] LABS: Glucose - Point of Care 163 mg/dl (70-99)
[2023-11-23 02:48] VITALS: BP 132/65
[2023-11-23 03:18] LABS: Hematocrit 24.4 % (39.0-52.0); Hemoglobin 8.4 g/dL (13.0-18.0); Mean Corp Hgb Conc. 34.4 g/dL (33.0-37.0); Mean Corpuscular Hgb 31.2 pg (27.0-31.0); Mean Corpuscular Volume 90.7 fL (80.0-94.0); Mean Platelet Volume 9.5 fL (7.4-10.4); Platelet Count 138 10^3/uL (130-400); Red Blood Cell Count 2.69 10^6/uL (4.70-6.10); Red Cell Dist. Width 14.6 % (11.5-14.5); White Blood Cell Count 7.2 10^3/uL (4.8-10.8)
[2023-11-23 03:40] LABS: Blood Urea Nitrogen 20 mg/dl (9-20); Calcium 9.3 mg/dl (8.4-10.2); Carbon Dioxide 29 mmol/L (22-30); Chloride 103 mmol/L (98-107); Estimated Creatinine Clearance 83 ml/min; Glucose 112 mg/dl (70-99); Magnesium 2.3 mg/dl (1.6-2.3); Potassium 4.1 mmol/L (3.5-5.1); Sodium 140 mmol/L (135-145); eGFR > 60.00
--- NOTE | 2023-11-23 04:42 | W.PN.CT ---
Addendum entered and electronically signed by Andrew Orta MD 11/23/23 07:49:
I saw and examined the patient.
The PA's note was reviewed and I agree with the note.
Comment:
D/C cordis
OOB/IS/ambulate
Resume home medications
ASA/plavix
Cut pacing wires
D/C planning for hopefully later today
Original Note:
Today's Communication / Plan
-
Plan:
-No major issues overnight. Hemodynamically and neurologically intact
-Off all drips
-Diabetes management following
-BP has been soft postop, improving
-Noted to be tachycardic with ectopies postop, improved on Amiodarone and Lopressor (was on Labetalol @ home)
-Cont. current meds (ASA, Plavix, Lipitor, Zetia, Amio, Lopressor, Protonix)
-Holding mag oxide today, mg 2.6 -> 2.3
-D/C cordis
-F/U 2-view cxr
-H/H improved from 8.1/23.2 -> 8.2/24.1 -> 8.4/24.4. Denies lightheadedness/dizziness
-Hyponatremia has resolved with diuresis, 134-> 139 -> 140 today
-Encourage use of IS
-D/C temporary PW (will cut before d/c home)
-OOB into chair, Ambulate
-Home today
Assessment / Plan
-
- Ostial & proximal LCx CAD not amenable to PCI- s/p CABG x 2 (GSV to OM1, GSV to OM4 [LPDA] on 11/19/[address] Orta, pod #4
- Post-MARGARITA: LVEF 60-65% w/ inferobasal hypokinesia (unchanged), mild MR, mild TR, TAVR w/ mean 13mmHg w/ mild PVL
- HTN/HLD
- CAD with stents 2013 and 2021
- s/p TAVR 2021
- Class 1 obesity (BMI 31)
- DM II
- REX, on CPAP
- CVA with R hand sensation deficit
- Chronic RBBB
- GERD/ Beach's esophagitis s/p hiatal hernia repair
- Former smoker
- Acute postop blood loss anemia
- Acute postop thrombocytopenia
- Acute postop atelectasis
- Acute postop hypovolemia with subsequent hypervolemia
- Acute postop tachycardia
Discussed patient care with: Cardiology, Nursing, Respiratory Therapy, Pharmacy and Care Team
Subjective
Procedure
s/p CABG x 2 (GSV to OM1, GSV to OM4 [LPDA] on 11/19/[address] Orta
-
Date of Service: November 23, 2023
Pt c/o mild incisional pain, otherwise feels well
Objective Data
-
Lab Results
11/23/23 02:57
11/23/23 02:57
PT 18.2 Sec (11.4-14.6) H 11/19/23 14:18
INR 1.50 11/19/23 14:18
APTT 30.4 Sec (23.4-35.0) 11/19/23 14:18
Vital Signs
Vital Signs
Temp Pulse Resp BP Pulse Ox
98 F 66 18 164/65 96
11/22/23 20:00 11/22/23 23:00 11/22/23 20:00 11/22/23 20:33 11/22/23 20:00
CT Intake/Output/Weight
11/22/23 11/22/23 11/23/23
06:59 18:59 06:59
Intake Total 122.6 / 727.2 600 / 600
Output Total 400 / 650
Balance -277.4 / 77.2 600 / 600
SaO2: 96 (RA)
Physical Exam
-
General: Awake, Oriented and AOx3
Cardiovascular: Regular rate & rhythm, No Murmurs, No Rub and No Gallop
Respiratory: Decreased Breath Sounds
Sternum: Stable
Incision: Clean, Dry, Intact and Dressing Intact
Extremities: No Edema
Data Reviewed
-
Lab Results: Results Reviewed
Medications: Active Meds Reviewed
Chest X-Ray: Report Reviewed and Image Reviewed
ECG: Report Reviewed and Image Reviewed
--- NOTE | 2023-11-23 08:01 | PN.DE.MGMTRT ---
Insulin Management
- -
11/23/2023: Diabetes Management F/U:
83 year old male with PMH: CAD s/p multiple stents + rotational atherectomy, severe s/p TAVR, CVA with residual right hand sensation deficit, HTN, HLD, T2DM on insulin, severe REX on CPAP, GERD c/b Beach's esophagus, h/o paraesophageal hernia,
essential tremor and remote h/o tobacco use.
Patient known to cardiothoracic surgery with last encounter with him during prior hospitalization from 11/02 - 11/04/2023 when he was admitted for exertional chest pain and LHC on 11/03/2023 showed severe CAD involving apical LAD, LCx , ostial LCx and
RCA. CT surgery consulted who rec'd PCI, which he obtained on 11/12/2023 which was unsuccessful as guidewire was unable to traverse the mid and distal LCx artery. Echo on 11/13/2023 showed LVEF 50% with grade II diastolic dysfunction, hypokinesis in
basal-mid inferolateral wall and basal inferior wall. Surgical revascularization was recommended by CT surgery.
A1C 6.8% as of 10/29/23, Cr 0.9, eGFR >60
Pt awake, alert, sitting up in bed, able to discuss diabetes plan.
POD #4 S/P CABG x2, doing well. Transitioned off Critical care Glycemic protocol on 11/20 to his OP regimen.
States he was taking Lantus 28 units BID. He has a CGM-Arun [address] for glucose monitoring at home.
Glucose stable and in range, premeal 127 to 180, FBG 112 this AM
Will make no changes to current regimen: Lantus 28 units BID and low corrective with meals.
Will ask SW to verify coverage/co-pay for Farxigga or Jardiance
Diabetes History
- -
Type of Diabetes: 2 requiring insulin
Pre-Admission Diabetes Regimen
11/23/23
02:57
Creatinine 0.7
Insulin Pump Settings
IP Diabetes Regimen
11/22/23 11/22/23 11/22/23
12:52 17:32 20:40
Glucose
POC Glucose 180 H 127 H 163 H
11/23/23
02:57
Glucose 112 H
POC Glucose
Meal type: Dinner
Meal type: Dinner
Meal type: Lunch
Meal type: Breakfast
Amount consumed: 100%
Amount consumed: 35%
Amount consumed: 90%
Patient Education
--- NOTE | 2023-11-23 08:14 | W.PN.CD ---
Today's Communication / Plan
-
OK for home today
Impression / Plan
-
A: 83 y/o, PMH sig for CAD w/prior LCx atherectomy/angioplasty only (01/2022), LAD ENRIQUE to tandem lesions (08/2021), CVA w/RUE deficit (2019), s/p TAVR (10/2021), presents for planned CABG, now s/p SVG to OM1 and SVG to OM4 by Dr Orta.
CAD s/p CABG with SVG to OM1 and OM 4 LAD stenting
- asa/plavix when OK from surgical perspective
- cont atorvastatin 40mg and zetia
HTN
- home meds (labetalol 200 bid, HCTZ 12.5 ) to be resumed
HLD
- cont statin and zetia
s/p TAVR
- stable
DM2
hx of CVA
Beach's esophagus
OK for home today
PCP: You Raygoza MD
CDY: Milad Barrera MD
Physical Exam
Vital Signs/Labs
Vital Signs
Temp Pulse Resp BP Pulse Ox
98 F 66 18 164/65 96
11/22/23 20:00 11/22/23 23:00 11/22/23 20:00 11/22/23 20:33 11/23/23 05:15
11/22/23 11/23/23 11/24/23
06:59 06:59 06:59
Actual Weight 194 lb 0.108 oz
11/23/23 02:57
11/23/23 02:57
PT 18.2 Sec (11.4-14.6) H 11/19/23 14:18
INR 1.50 11/19/23 14:18
APTT 30.4 Sec (23.4-35.0) 11/19/23 14:18
Magnesium 2.3 mg/dl (1.6-2.3) 11/23/23 02:57
Physical Exam
Constitutional: No acute distress and Comfortable
Cardiovascular: Rhythm & rate is regular and S1S2 is normal
Respiratory: Respiratory effort normal, Lungs clear to auscul., Wheeze Absent and Crackles Absent
GI: Soft and Non tender
Neuro/Psych: AO x 3 and Motor deficits absent
Data Reviewed
-
Date of Service: November 23, 2023
[2023-11-23 08:20] VITALS: BP 124/68
[2023-11-23] MEDS: NOVOLOG FLEXPEN SC (08:57)
[2023-11-23] MEDS: TYLENOL PO (08:57)
[2023-11-23] MEDS: LOPRESSOR 12.5 MG PO (09:18)
[2023-11-23] MEDS: LIPITOR 40 MG PO (09:18)
[2023-11-23] MEDS: PACERONE 200 MG PO (09:18)
[2023-11-23] MEDS: PROTONIX 40 MG PO (09:19)
[2023-11-23] MEDS: LOW STRENGTH ASPIRIN 81 MG PO (09:19)
[2023-11-23] MEDS: ZETIA 10 MG PO (09:19)
[2023-11-23] MEDS: OCUVITE SOFTGEL 2 CAP PO (09:19)
[2023-11-23] MEDS: PLAVIX 75 MG PO (09:20)
[2023-11-23] MEDS: SENOKOT-S 1 TABLET PO (09:20)
[2023-11-23] MEDS: KEPPRA 500 MG PO (09:20)
[2023-11-23] MEDS: NEURONTIN 100 MG PO (09:20)
[2023-11-23] MEDS: VITAMIN D3 (cholecalciferol) 50 MCG PO (09:20)
[2023-11-23] MEDS: LIDOCAINE 4% PATCH TOPICAL (09:21)
[2023-11-23] MEDS: PRED FORTE 1% EYE DROPS 1 DROP LEFT EYE (09:21)
[2023-11-23] MEDS: BACTROBAN 2% OINTMENT 1 APPLIC NASAL (09:21)
[2023-11-23] MEDS: NSS IV (09:22)
[2023-11-23] MEDS: LANTUS 0.28 UNITS SC (09:24)
--- NOTE | 2023-11-23 10:19 | W.[place]-PDMP ---
[place]-PD[place]
-
Checked the [place]- Prescription Drug Monitoring Program website, no red flags identified; safe to proceed with prescription.
--- NOTE | 2023-11-23 10:19 | W.DCSUMMARY ---
Discharge Summary
Discharge Data
Date of Admission: 11/19/23
Date of Discharge: 11/23/23
Total time spent discharging patient (in min): 40
-
Pending Results: No
Hospital Course
Primary care physician:
Dr. You Seaman MD.
Outpatient inspector and clerk:
Dr. Milad Barrera MD.
Inpatient consultants:
[facility]
Diabetes management
Procedures:
1. Coronary artery bypass grafting x [address] Andrew Orta MD. 11/19/23 (greater saphenous vein to obtuse marginal 1, greater saphenous vein to OM 4)
Primary Diagnosis:
1. Coronary artery disease status post percutaneous intervention and stenting
2. 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
3. Transcatheter aortic valve replacement 2021
4. Insulin-dependent diabetes mellitus type 2
5. Obesity
6. Obstructive sleep apnea with continuous positive airway pressure machine
7. Stable angina
8. Dyspnea upon exertion
9. Hypertension
10. Hyperlipidemia
11. Cerebrovascular accident with right hand sensation deficit
12. Beach's esophagitis
13. Gastroesophageal reflux disease
14. Status post coronary artery bypass grafting x 2 11/19/[address] Andrew Orta MD.
Secondary Diagnoses:
1. Coronary artery disease status post percutaneous intervention and stenting
2. 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
3. Transcatheter aortic valve replacement 2021
4. Insulin-dependent diabetes mellitus type 2
5. Obesity
6. Obstructive sleep apnea with continuous positive airway pressure machine
7. Stable angina
8. Dyspnea upon exertion
9. Hypertension
10. Hyperlipidemia
11. Cerebrovascular accident with right hand sensation deficit
12. Beach's esophagitis
13. Gastroesophageal reflux disease
14. Status post coronary artery bypass grafting x 2 11/19/[address] Andrew Orta MD.
HPI:
Patient is an 83-year-old male well-known to the cardiothoracic surgery service. Patient previously had a history of percutaneous intervention as well as transcatheter aortic valve replacement. He continued to be symptomatic with chest pain,
occurring more frequently with less exertion. Patient was evaluated by Dr. Joby Hamm, and complex PCI was attempted, however, the ostial and proximal left circumflex disease could not be intervened upon with stenting. Dr. Orta was present
at bedside and spoke with the patient at length. Arrangements were made for the patient to represent to [facility] on 11/19/2023 to undergo coronary artery revascularization.
Hospital course:
Patient presented to [facility] electively as an outpatient on the date described above for the procedure described above. Prior to the procedure the patient was noted to have ecchymosis at his left groin cath site. Patient underwent a stat
ultrasound of the groin which was negative for pseudoaneurysm. Patient proceeded to the operating room theater.
Patient underwent coronary artery revascularization. Patient tolerated the procedure well. He was transferred to the cardiovascular intensive care unit where he underwent his postoperative recovery. He was successfully extubated routinely on
postoperative day 0 at 1720. Patient was progressed in routine fashion. On postoperative day #1 his dobutamine was weaned off. The patient was declined. Barreto catheter was removed, and low-dose beta-blockade, aspirin, and Plavix were resumed.
On postoperative day 2 patient was transitioned off his insulin drip and restarted on his home dose of Lantus. He was covered additionally with sliding scale, and was being managed by the diabetes nurse practitioner. Chest tubes were removed
without issues. By postoperative day #4 patient was ambulating and doing well. He was saturating on room air. Two-view chest x-ray revealed no surgical concerns. His pacing wires were cut at the skin without issues. Patient's case was discussed
with attending physician, and he was medically cleared to be discharged to home on postoperative day #4.
Home medication changes:
Please pay attention to the following medication changes:
Take Acetaminophen extra strength 1000 mg TID PRN for fever, mild pain
Take Lasix 40 mg daily x 7 days unless instructed otherwise for post operative volume overload
Take metoprolol tartrate 12.5 mg every 12 for HTN, status post CABG
Take oxycodone 5 mg Q6H PRN for moderate-severe pain control
Take potassium chloride 20 meq x 7 days unless instructed otherwise for electrolyte replacement
Please stop taking the following medications:
Stop taking hydrochlorothiazide 12.5 mg daily-discuss restarting a follow-up with cardiology
Stop taking labetalol 200 mg twice daily-alternative therapy with metoprolol tartrate
Stop taking nitroglycerin 0.4 mg sublingual as needed�therapy no longer needed
Stop taking ranolazine 500 mg twice daily-discussed restarting a follow-up with cardiology
Discharge Plan
-
Patient Disposition: Home (Routine Discharge)
Discharge Diagnosis/Procedures: Coronary artery disease status post PCI and stenting
Transcatheter aortic valve replacement 2021
Insulin-dependent diabetes mellitus type 2
Obesity
Obstructive sleep apnea with continuous positive airway pressure machine
Stable angina
Dyspnea upon exertion
Hypertension
Hyperlipidemia
Cerebrovascular accident with right hand sensation deficit
Beach's esophagitis
Gastroesophageal reflux disease
Status post coronary artery bypass grafting x 2 11/19/[address] Andrew Orta MD.
Condition: Good
Diet: Low Fat, Low Cholesterol and Diabetic, Carb Controlled
Activity: No strenuous activity
Driving Restrictions: Not until seen by your Dr
Bathing Restrictions: OK to Shower
Other Services: Cardiac Rehab
Specialty Instructions: Weigh Daily- Call MD for wt gain/loss 3 lbs overnight/5 lbs in 1 week
Activity Restrictions/Additional Instructions:
ACTIVITY:
-No strenuous activity: no heavy lifting, pushing, pulling anything over 15 pounds for one month
-continue to use stairs as tolerated
DRIVING RESTRICTIONS:
-No driving for one month or until approved by your surgeon
WOUND CARE:
-Shower daily. Use soap & water.
-No lotions, creams or powders on incision area.
DIET:
-continue a low fat/low cholesterol diet.
-IF you are diabetic, continue carb controlled diet.
CARDIAC REHAB:
-Please make appointment to start in 5-6 weeks with your local hospital program. (See Cardiac Rehabilitation Discharge Booklet).
SPECIALTY INSTRUCTIONS:
-Weigh yourself daily. Call your physician for any weight gain/loss of 3 lbs overnight or 5 lbs in one week.
-REPORT any clicking noise or uneven appearance of your sternum to your surgeon immediately.
-If you smoke, you are instructed to quit. The [place] smoking hotline phone number is [phone]
Referrals:
CT Transitional Care Nurse [Outside] - in one to two days
(
The Cardiothoracic Transitional Care Nurse will call you to set up a visit in 1-2 days.)
Wally De Anda MD [Active] - in one to two months (Follow up regarding left upper lobe ground glass opacity seen on CT chest from 11/13/2023; will need repeat imaging in 3-6 months - we will discuss in office.)
You Raygoza., DO [Family Provider] - in four to six weeks (Please make an appointment in four to six weeks. )
Milad Barrera MD [Non-Admitting Privileges] - 12/30/23 9:00 am
Andrew Orta MD [Active] - 12/22/23 2:30 pm
Additional Discharge Medication Instructions: Please pay attention to the following medication changes:
Take Acetaminophen extra strength 1000 mg TID PRN for fever, mild pain
Take Lasix 40 mg daily x 7 days unless instructed otherwise for post operative volume overload
Take metoprolol tartrate 12.5 mg every 12 for HTN, status post CABG
Take oxycodone 5 mg Q6H PRN for moderate-severe pain control
Take potassium chloride 20 meq x 7 days unless instructed otherwise for electrolyte replacement
Please stop taking the following medications:
Stop taking hydrochlorothiazide 12.5 mg daily-discuss restarting a follow-up with cardiology
Stop taking labetalol 200 mg twice daily-alternative therapy with metoprolol tartrate
Stop taking nitroglycerin 0.4 mg sublingual as needed�therapy no longer needed
Stop taking ranolazine 500 mg twice daily-discussed restarting a follow-up with cardiology
Prescriptions:
New
acetaminophen [Tylenol Extra Strength] 500 mg Tablet
1,000 mg PO TID@0600,1400,2200 PRN (Reason: fever, mild pain ) Qty: 0 0RF
Rx Instructions:
Please purchase over the counter.
furosemide [Lasix] 40 mg tablet
40 mg PO DAILY Qty: 7 0RF
Rx Instructions:
Take Lasix 40 mg daily x 7 days and stop unless instructed otherwise
potassium chloride 20 mEq tablet extended release
20 meq PO DAILY Qty: 7 0RF
Rx Instructions:
Take 20 meq of Potassium with Lasix x7 days and stop unless instructed otherwise
metoprolol tartrate 25 mg Tablet
12.5 mg PO Q12 Qty: 30 2RF
oxycodone 5 mg tablet
5 mg PO Q6HPRN PRN (Reason: moderate-severe pain) Qty: 28 0RF
Rx Instructions:
Ongoing pain, Attending physician Dr. Andrew Orta MD
Continued
atorvastatin 40 mg Tablet
40 mg PO DAILY
Patient Comments:
MEDICATION OBTAINED FROM H&P DATED 11/03/23.
levetiracetam 500 mg Tablet
500 mg PO BID
Patient Comments:
MEDICATION OBTAINED FROM H&P DATED 11/03/23.
azelastine 137 mcg (0.1 %) Palmetto,Non-Aerosol
1 spray INTRANASAL BID
Patient Comments:
MEDICATION OBTAINED FROM H&P DATED 11/03/23.
ezetimibe 10 mg Tablet
10 mg PO DAILY
Patient Comments:
MEDICATION OBTAINED FROM H&P DATED 11/03/23.
insulin glargine [Lantus Solostar U-100 Insulin] 100 unit/mL (3 mL) Insulin Pen
28 unit SC BID
Patient Comments:
MEDICATION OBTAINED FROM H&P DATED 11/03/23.
aspirin 81 mg Tablet,Delayed Release (Dr/Ec)
81 mg PO DAILY
Patient Comments:
MEDICATION OBTAINED FROM H&P DATED 11/03/23.
famotidine 20 mg Tablet
20 mg PO BID
Patient Comments:
MEDICATION OBTAINED FROM H&P DATED 11/03/23.
coenzyme Q10 [Co Q-10] 200 mg Capsule
200 mg PO DAILY
Patient Comments:
MEDICATION OBTAINED FROM H&P DATED 11/03/23.
melatonin 5 mg Tablet
5 mg PO HS PRN (Reason: sleep)
Patient Comments:
MEDICATION OBTAINED FROM H&P DATED 11/03/23.
cholecalciferol (vitamin D3) [Vitamin D3] 50 mcg (2,000 unit) Capsule
50 mcg PO DAILY
Patient Comments:
MEDICATION OBTAINED FROM H&P DATED 11/03/23.
Preservision
2 cap PO BID
Patient Comments:
MEDICATION OBTAINED FROM H&P DATED 11/03/23.
Probiotic
1 cap PO DAILY
Patient Comments:
MEDICATION OBTAINED FROM H&P DATED 11/03/23.
Rescue 1250 Fish Oil 500 mg capsule
2 cap PO DAILY
Patient Comments:
MEDICATION OBTAINED FROM H&P DATED 11/03/23.
Slo Fe
45 mg PO DAILY
Patient Comments:
MEDICATION OBTAINED FROM H&P DATED 11/03/23.
Vitamin B-12
1 tab PO DAILY
Patient Comments:
MEDICATION OBTAINED FROM H&P DATED 11/03/23.
resveratrol
1 cap PO DAILY
Patient Comments:
MEDICATION OBTAINED FROM H&P DATED 11/03/23.
clopidogrel 75 mg Tablet
75 mg PO DAILY
Patient Comments:
MEDICATION OBTAINED FROM H&P DATED 11/03/23.
prednisolone acetate 1 % Drops,Suspension
2 drp OPHTHALMIC (EYE) DAILY
Discontinued
ranolazine 500 mg Tablet Extended Release 12 Hr
500 mg PO BID
Patient Comments:
MEDICATION OBTAINED FROM H&P DATED 11/03/23.
hydrochlorothiazide 12.5 mg Tablet
12.5 mg PO DAILY
Patient Comments:
MEDICATION OBTAINED FROM H&P DATED 11/03/23.
nitroglycerin 0.4 mg tablet, sublingual
0.4 mg sublingual [id number] PRN (Reason: chest pain) Qty: 25 2RF
Patient Comments:
MEDICATION OBTAINED FROM H&P DATED 11/03/23.
labetalol 200 mg Tablet
200 mg PO BID
Patient Comments:
MEDICATION OBTAINED FROM H&P DATED 11/03/23.
Care Plan Goals
Care Plan Goals:
Problem: Readiness for enhanced knowledge related to diagnosis and treatment plan
Goal: Understand your diagnosis and treatment plan needs, including medications if applicable.
Instructions: Know your diagnosis, underlying causes and treatment plan options, including medications if applicable. Consult with your health care team to learn about your diagnosis and treatment plan, including medications if applicable.
Discharge Date and Time
Print Language: BENGALI
[2023-11-23] MEDS: LASIX 40 MG IV (10:53)
[2023-11-23] MEDS: KCL 20 MEQ PO (10:53)
[2023-11-23 10:58] VITALS: BP 76/53
[2023-11-23 11:00] VITALS: BP 128/46
[2023-11-23 11:06] VITALS: BP 170/60
[2023-11-23 11:20] VITALS: BP 128/46; BP 170/60; PULSE 75; O2SAT 92
--- NOTE | 2023-11-23 11:53 | CM ---
Pricing on Farxiga 10mg daily is $47 for a 30 day supply
Jardiance 10mg daily is $47 for a 30 day supply.
Patient is agreeable to cost.
Notified Freida Adams, [employer]. Placed a free 30 day coupon in the patient's red discharge folder
== END 2023-11-23 11:51 | disposition home or self-care (01) | DRG 236 ==
LOC: CVICU 04:36
PROVIDERS: Anesthesiology; Nurse Practitioner; Physician Assistant Medical; ADMITTING PHYSICIAN Thoracic Surgery (Cardiothoracic Vascular Surgery); CONSULT PHYSICIAN Internal Medicine Critical Care Medicine; FAMILY PHYSICIAN Family Medicine
PROC: 021109W Bypass Coronary Artery, Two Arteries from Aorta with Autologous Venous Tissue, Open Approach (ICD-10-PCS; 2023-11-19)
PROC: B24BZZ4 Ultrasonography of Heart with Aorta, Transesophageal (ICD-10-PCS; 2023-11-19)
PROC: 5A1221Z Performance of Cardiac Output, Continuous (ICD-10-PCS; 2023-11-19)
PROC: 06BP4ZZ Excision of Right Saphenous Vein, Percutaneous Endoscopic Approach (ICD-10-PCS; 2023-11-19)
DX: I25.110 Atherosclerotic heart disease of native coronary artery with unstable angina pectoris (principal); D62 Acute posthemorrhagic anemia; I31.39 Other pericardial effusion (noninflammatory); E87.1 Hypo-osmolality and hyponatremia; J98.11 Atelectasis; I45.2 Bifascicular block; R00.1 Bradycardia, unspecified; E87.70 Fluid overload, unspecified; R00.0 Tachycardia, unspecified; D69.59 Other secondary thrombocytopenia; E86.1 Hypovolemia; E11.40 Type 2 diabetes mellitus with diabetic neuropathy, unspecified; I10 Essential (primary) hypertension; E78.5 Hyperlipidemia, unspecified; G47.33 Obstructive sleep apnea (adult) (pediatric); K21.9 Gastro-esophageal reflux disease without esophagitis; K22.70 Barrett's esophagus without dysplasia; G25.0 Essential tremor; I69.398 Other sequelae of cerebral infarction; J47.9 Bronchiectasis, uncomplicated; R91.8 Other nonspecific abnormal finding of lung field; I08.1 Rheumatic disorders of both mitral and tricuspid valves; R58 Hemorrhage, not elsewhere classified; E66.9 Obesity, unspecified; Z68.31 Body mass index [BMI] 31.0-31.9, adult; H91.90 Unspecified hearing loss, unspecified ear; Z82.49 Family history of ischemic heart disease and other diseases of the circulatory system; Z95.5 Presence of coronary angioplasty implant and graft; Z95.2 Presence of prosthetic heart valve; Z79.4 Long term (current) use of insulin; Z87.891 Personal history of nicotine dependence; Z79.82 Long term (current) use of aspirin; Z79.02 Long term (current) use of antithrombotics/antiplatelets
CPT/HCPCS: 36415; 71045; 71046; 80048; 80053; 81003; 81015; 82248; 82330; 82565; 82805; 82810; 82947; 82962; 83735; 84132; 84302; 84520; 85014; 85018; 85025; 85027; 85049; 85610; 85730; 86850; 86900; 86901; 86920; 87070; 93005; 93312; 93320; 93325; 93926; 94002

== ENCOUNTER → 2024-05-04 08:46 | Outpatient (REF) | payer OTHER, SELFPAY | LOC: HWRAD 08:46 | PROVIDERS: ATTENDING PHYSICIAN Internal Medicine Critical Care Medicine; FAMILY PHYSICIAN Family Medicine | DX: R91.1 Solitary pulmonary nodule (principal) | CPT/HCPCS: 71250 ==

== ENCOUNTER → 2024-12-08 09:31 | Outpatient (REF) | payer OTHER, SELFPAY | LOC: RAD 09:31 | PROVIDERS: ATTENDING PHYSICIAN Podiatrist; FAMILY PHYSICIAN Family Medicine | DX: L02.611 Cutaneous abscess of right foot (principal) | CPT/HCPCS: 73630 ==

== ENCOUNTER → 2024-12-14 11:31 | Outpatient (REF) | payer OTHER, SELFPAY | LOC: HWRAD 11:31 | PROVIDERS: ATTENDING PHYSICIAN Podiatrist; FAMILY PHYSICIAN Family Medicine | DX: L02.611 Cutaneous abscess of right foot (principal) | CPT/HCPCS: 76882 ==

== ENCOUNTER 2024-12-19 08:21 | Inpatient (IN) | payer OTHER, SELFPAY ==
[2024-12-15 19:43] VITALS: BP 123/77
[2024-12-15 20:24] LABS: ALT (SGPT) 43 U/L (0-50); AST (SGOT) 46 U/L (17-59); Albumin 4.5 g/dl (3.5-5.0); Alkaline Phosphatase 85 U/L (38-126); Blood Urea Nitrogen 12 mg/dl (9-20); Calcium 9.8 mg/dl (8.4-10.2); Carbon Dioxide 26 mmol/L (22-30); Chloride 105 mmol/L (98-107); Estimated Creatinine Clearance 81 ml/min; Glucose 155 mg/dl (70-99); Potassium 4.1 mmol/L (3.5-5.1); Sodium 139 mmol/L (135-145); Total Protein 6.9 g/dl (6.3-8.2); eGFR > 60.00
[2024-12-15 20:33] LABS: Hematocrit 40.9 % (39.0-52.0); Hemoglobin 13.8 g/dL (13.0-18.0); Mean Corp Hgb Conc. 33.7 g/dL (33.0-37.0); Mean Corpuscular Volume 87.2 fL (80.0-94.0); Platelet Count 156 10^3/uL (130-400); Red Cell Dist. Width 13.7 % (11.5-14.5)
[2024-12-15 20:34] LABS: Absolute Neutrophils -Man Diff 0.7 10^3/uL (1.4-6.5)
[2024-12-15 20:35] LABS: Normal RBC Morphology Yes; Total Cells Counted 100
[2024-12-15 20:47] LABS: Platelets Checked Yes
--- NOTE | 2024-12-15 22:02 | ED.GENMED ---
History of Present Illness
General
Chief Complaint: Skin Problem
Source: patient and family
Time Seen by Provider: 12/15/24 21:30
History of Present Illness
History of Present Illness:
84-year-old male presents to the emergency department with right sided foot pain. He states that 2 weeks ago while doing work at his home and wearing sneakers he excellently stepped on a nail and it penetrated the sneaker and into his right foot
near the great toe. He saw his PCP and was given tetanus and started on Augmentin. He continued to complain of pain so he went to his gear room keeper and the Augmentin was extended. He has been taking Augmentin, 875 twice daily, for approximately 2
weeks. As an outpatient he had an x-ray of the foot which was unremarkable and an ultrasound dedicated to the without any abnormalities noted. He contacted his gear room keeper today with complaints of continued pain which prompted his recommendation to
bring him here. The patient denies fever, chills, sweats, nausea, vomiting, numbness, tingling. He denies foreign body sensation, drainage. He states that the right lower extremity is always more swollen compared to the right given his history of
bypass.
Past History
Past History
ED Past Medical History: Other (Diabetes, hypercholesterolemia, ACS, reflux)
ED Past Surgical History: Cardiac
Social History
Tobacco: Non-smoker
Alcohol: None
Drug: None
Living: with family
Employment: Employed
Phy Exam
Physical Exam
Physical Exam:
GENERAL: Alert , in no apparent distress
EYE: pupils equal and reactive
NECK: Supple, no significant adenopathy.
ENT: o/p clr, mmm.
CARDIAC: Regular rate and rhythm .
LUNGS: Clear breath sounds bilaterally, no acute respiratory distress, no wheezes/rales/rhonchi
ABDOMEN: Soft, without focal tenderness, no r/g, no cvat
NEUROLOGICAL: Alert and oriented, no focal neuro deficits
SKIN: Warm and dry, skin intact.
MUSCULOSKELETAL: well perfused. Mild RLE edema compared to left. Nl pulses. There is min ttp noted at R 1st distal MT, no drainage/fluctuance/crepitus/streaking. ?mild erythema
PSYCH: Normal and appropriate interaction.
Sepsis
Sepsis Screen
Sepsis Screen: Possible Sepsis
Date: 12/15/24
Time: 22:02
Course
Orders/Labs/Results
Orders:
Orders
12/15/24 19:55
Complete Blood Count/With Diff Urgent
Comprehensive Metabolic Panel Urgent
Manual Differential Urgent
Abnormal Lab Results
12/15/24
19:55
WBC 2.1 L* 10^3/uL
(4.8-10.8)
RBC 4.69 L 10^6/uL
(4.70-6.10)
Abs Neuts (Manual) 0.7 L* 10^3/uL
(1.4-6.5)
Segmented Neutrophils 37 L %
(42-75)
Monocytes (Manual) 24 H %
(2-9)
Glucose 155 H mg/dl
(70-99)
12/15/24 19:55
12/15/24 19:55
Vital Signs
Initial and Last Documented VS:
Initial Vital Signs
Temp Pulse Resp BP Pulse Ox
98.1 F 78 18 123/77 99
12/15/24 19:43 12/15/24 19:43 12/15/24 19:43 12/15/24 19:43 12/15/24 19:43
Last Documented Vital Signs
Temp Pulse Resp BP Pulse Ox
98.1 F 78 18 123/77 99
12/15/24 19:43 12/15/24 19:43 12/15/24 19:43 12/15/24 19:43 12/15/24 19:43
*Pulse Oximetry
SaO2: 99
Oxygen Mode of Delivery: Room air
Update Note
Update Note:
Patient presents to the Emergency Department with
Number and Complexity of Problems Addressed at the Encounter
� Chronic conditions affecting care:
� Acute Exacerbation and/or Progression of Chronic Illness:
� Differential Diagnosis includes:
Amount and/or Complexity of Data to be Reviewed and Analyzed
� I performed an independent evaluation of and my interpretation is:
EKG:
CT:
Xrays:
Laboratory Studies:neutropenia (new), nl cr, mild hyperglycemia
Other:
� Review of other/old records reveals: us report (focused on R foot) No abnormal fluid collection or retained foreign body identified sonographically. Xray No acute fracture or dislocation.
No radiopaque foreign body identified.
� Clinical information was obtained by an independent historian:
� Prescriptions/Medications Considered but not given:
� Further testing considered but not performed:
Risk of Complications and/or Morbidity or Mortality of Patient Management
� Social determinants of health affecting care:
� Discussion with other providers (PCP, Hospitalists, Consultants, etc):
� Escalation of care including admission/observation vs risk of discharge considered:
ED Attending Note
-
Portions of this chart may have been created with voice recognition software.� Occasional wrong word or��sound alike� substitutions may have occurred due to the inherent limitations of voice recognition software.
Discharge Plan
Departure
Patient Disposition: Admit
Date of Disposition: 12/15/24
Time of Disposition: 22:19
Admit to: Med/Surg
Presentation/result/management discussed w/ accepting MD/DO: Hospitalist
Condition: Fair
Discharge Problem:
Diabetic foot infection
Prescriptions:
No Action
atorvastatin 40 mg Tablet
40 mg PO DAILY
Patient Comments:
MEDICATION OBTAINED FROM H&P DATED 11/03/23.
levetiracetam 500 mg Tablet
500 mg PO BID
Patient Comments:
MEDICATION OBTAINED FROM H&P DATED 11/03/23.
azelastine 137 mcg (0.1 %) [place],Non-Aerosol
1 spray INTRANASAL BID
Patient Comments:
MEDICATION OBTAINED FROM H&P DATED 11/03/23.
ezetimibe 10 mg Tablet
10 mg PO DAILY
Patient Comments:
MEDICATION OBTAINED FROM H&P DATED 11/03/23.
insulin glargine [Lantus Solostar U-100 Insulin] 100 unit/mL (3 mL) Insulin Pen
28 unit SC BID
Patient Comments:
MEDICATION OBTAINED FROM H&P DATED 11/03/23.
aspirin 81 mg Tablet,Delayed Release (Dr/Ec)
81 mg PO DAILY
Patient Comments:
MEDICATION OBTAINED FROM H&P DATED 11/03/23.
famotidine 20 mg Tablet
20 mg PO BID
Patient Comments:
MEDICATION OBTAINED FROM H&P DATED 11/03/23.
coenzyme Q10 [Co Q-10] 200 mg Capsule
200 mg PO DAILY
Patient Comments:
MEDICATION OBTAINED FROM H&P DATED 11/03/23.
melatonin 5 mg Tablet
5 mg PO HS PRN (Reason: sleep)
Patient Comments:
MEDICATION OBTAINED FROM H&P DATED 11/03/23.
cholecalciferol (vitamin D3) [Vitamin D3] 50 mcg (2,000 unit) Capsule
50 mcg PO DAILY
Patient Comments:
MEDICATION OBTAINED FROM H&P DATED 11/03/23.
Preservision
2 cap PO BID
Patient Comments:
MEDICATION OBTAINED FROM H&P DATED 11/03/23.
Probiotic
1 cap PO DAILY
Patient Comments:
MEDICATION OBTAINED FROM H&P DATED 11/03/23.
Rescue 1250 Fish Oil 500 mg capsule
2 cap PO DAILY
Patient Comments:
MEDICATION OBTAINED FROM H&P DATED 11/03/23.
Slo Fe
45 mg PO DAILY
Patient Comments:
MEDICATION OBTAINED FROM H&P DATED 11/03/23.
Vitamin B-12
1 tab PO DAILY
Patient Comments:
MEDICATION OBTAINED FROM H&P DATED 11/03/23.
resveratrol
1 cap PO DAILY
Patient Comments:
MEDICATION OBTAINED FROM H&P DATED 11/03/23.
clopidogrel 75 mg Tablet
75 mg PO DAILY
Patient Comments:
MEDICATION OBTAINED FROM H&P DATED 11/03/23.
prednisolone acetate 1 % Drops,Suspension
2 drp OPHTHALMIC (EYE) DAILY
acetaminophen [Tylenol Extra Strength] 500 mg Tablet
1,000 mg PO TID@0600,1400,2200 PRN (Reason: fever, mild pain ) Qty: 0 0RF
Rx Instructions:
Please purchase over the counter.
furosemide [Lasix] 40 mg tablet
40 mg PO DAILY Qty: 7 0RF
Rx Instructions:
Take Lasix 40 mg daily x 7 days and stop unless instructed otherwise
potassium chloride 20 mEq tablet extended release
20 meq PO DAILY Qty: 7 0RF
Rx Instructions:
Take 20 meq of Potassium with Lasix x7 days and stop unless instructed otherwise
metoprolol tartrate 25 mg Tablet
12.5 mg PO Q12 Qty: 30 2RF
oxycodone 5 mg tablet
5 mg PO Q6HPRN PRN (Reason: moderate-severe pain) Qty: 28 0RF
Rx Instructions:
Ongoing pain, Attending physician Dr. Andrew Orta MD
dapagliflozin propanediol [Farxiga] 10 mg Tablet
10 mg PO DAILY Qty: 30 0RF
Rx Instructions:
Take daily in the morning
Referrals:
Sabalaske,You E., DO [Family Provider, Family Practice]
Interventions
Interventions:
*Risk Screen - Suicide Last Done: 12/15/24 19:43
*General Assessment Last Done: 12/15/24 21:25
*Neglect/Abuse Screening Last Done: 12/15/24 21:25
*ED- Fall Risk Assessment Last Done: 12/15/24 21:25
*ED COVID-19 Vaccine History Last Done: 12/15/24 19:43
*ED Influenza Vaccine History Last Done: 12/15/24 19:43
Discharge Date and Time
Print Language: PALAUAN
[2024-12-15] MEDS: ZOSYN 100 IV (22:05)
--- NOTE | 2024-12-15 22:22 | HPS.HSE ---
Family Physician
-
Family Physician: You Raygoza
Chief Complaint
-
Right Foot Pain
History of Present Illness
Patient is an 84 y/o male past medical history of CAD, CVA, s/p TAVR, HTN, DM and REX who presents with right foot pain. Patient reports he stepped on a nail last week. He was seen by his primary care provider who gave him a tetanus shot and
started him on Augmentin. Patient reports he continues to have significant pain in the foot. He did have an x-ray of the foot on December 08 and ultrasound on December 16 without any significant findings. He denies any fevers, sweats or chills.
Medical History
Past Medical History
Past Medical History: Reports Other
Additional Past Medical History:
Coronary Artery Disease s/p CABG
CVA with residual right hand numbness
Aortic Stenosis s/p TAVR
Essential Hypertension
Hyperlipidemia
Diabetes Mellitus, Type II
Obstructive Sleep Apnea
GERD / Beach's Esophagus
Essential Tremor
Past Surgical History: Reports Other
Additional Past Surgical History:
CABG
TAVR
Hiatal Hernia Repair
Trigger Finger Surgery x 3
Social History
Tobacco: Former Smoker
Alcohol: Daily (2 glasses of wine nightly)
Family History
Family History: Not pertinent
Allergies / Home Medications
Allergies reflects when Allergies were last updated in [employer].
Home Medications with original date entered in [employer]
Allergy/Medication List:
Allergies
Allergy/AdvReac Type Severity Reaction Status Date / Time
meperidine (From Demerol) Allergy Nausea / Verified 12/15/24 22:19
Vomiting
pollen extracts Allergy seasonal Verified 12/15/24 21:05
allergies
Home Medications
Preservision 2 cap PO BID 10/23/23
Probiotic 1 cap PO DAILY 10/23/23
Rescue 1250 Fish Oil 2 cap PO DAILY 10/23/23
Slo Fe 45 mg PO DAILY 10/23/23
Vitamin B-12 1 tab PO DAILY 10/23/23
aspirin 81 mg tablet,delayed release 81 mg PO DAILY Blood Clot Prevention/Tx 10/23/23
atorvastatin 40 mg tablet 40 mg PO DAILY High Cholesterol 10/23/23
azelastine 137 mcg (0.1 %) nasal spray 1 spray intranasal BID 10/23/23
cholecalciferol (vitamin D3) 50 mcg (2,000 unit) capsule (Vitamin D3) 50 mcg PO DAILY Supplement 10/23/23
coenzyme Q10 200 mg capsule (Co Q-10) 200 mg PO DAILY Supplement 10/23/23
ezetimibe 10 mg tablet 10 mg PO DAILY High Cholesterol 10/23/23
famotidine 20 mg tablet 20 mg PO BID Gastrointestinal Issue 10/23/23
insulin glargine 100 unit/mL (3 mL) subcutaneous pen (Lantus Solostar U-100 Insulin) 10 unit SC BID 10/23/23
levetiracetam 500 mg tablet 500 mg PO BID 10/23/23
melatonin 5 mg tablet 5 mg PO HS PRN sleep 10/23/23
resveratrol 1 cap PO DAILY 10/23/23
clopidogrel 75 mg tablet 75 mg PO DAILY Blood Clot Prevention/Tx 11/13/23
prednisolone acetate 1 % eye drops,suspension 2 drp ophthalmic (eye) DAILY 11/20/23
acetaminophen 500 mg tablet (Tylenol Extra Strength) 1,000 mg (2 x 500 mg) PO TID@0600,1400,2200 PRN fever, mild pain #0 tabs 11/23/23
doxazosin 4 mg tablet 4 mg PO DAILY 12/15/24
fluticasone furoate 50 mcg/actuation blister powder for inhalation 50 mcg inhalation BID 12/15/24
metoprolol succinate 25 mg tablet,extended release 24 hr 25 mg PO DAILY 12/15/24
tirzepatide 5 mg/0.5 mL subcutaneous pen injector (Mounjaro) 2.5 mg SC CROWELL 12/15/24
Review of Systems
-
A 12 point ROS was completed and negative except as noted: Yes
Constitutional: Denies Fever
Respiratory: Denies Cough or Trouble Breathing
Cardiac: Denies Chest Pain or Palpitations
Physical Exam
Vital Signs
Vital Signs
Temp Pulse Resp BP Pulse Ox
98.1 F 78 18 123/77 99
12/15/24 19:43 12/15/24 19:43 12/15/24 19:43 12/15/24 19:43 12/15/24 22:03
Physical Exam
General: Comfortable and Conversant
HEENT: Anicteric and Moist mucous membranes
Respiratory: Clear and Non Labored Respirations
Cardiac: S1/S2 and Regular Rhythm
GI: Soft, Non Tender and Other (Protuberant)
Rectal: Deferred by Provider
Musculoskeletal: No Clubbing, No Cyanosis and Other (Mild tenderness to palpation right 1st MTP area without open wound/drainage or fluctuance)
Skin: Warm, Dry and Other
Neuro: Awake, Alert, Oriented and Nonfocal/grossly intact
Psych: Calm
Laboratory Results
-
12/15/24 19:55
12/15/24 19:55
Laboratory Results
Total Bilirubin 0.9 mg/dl (0.2-1.3) 12/15/24 19:55
AST 46 U/L (17-59) 12/15/24 19:55
ALT 43 U/L (0-50) 12/15/24 19:55
Alkaline Phosphatase 85 U/L (38-126) 12/15/24 19:55
Data Reviewed
-
Lab Data: Labs Reviewed by me
Old Records: Reviewed
Impression/Plan
-
Right Foot Pain
-Leukopenia / Neutropenia raises concern for underlying infection
-Check Foot MRI to evaluate for deep infection
-Continue Vancomycin and Zosyn
-Await blood cultures
ASCVD
-Continue aspirin and Plavix
Essential Hypertension
-Continue metoprolol and doxazosin
Hyperlipidemia
-Continue atorvastatin and ezetimibe
Diabetes Mellitus, Type II
-Continue Lantus
-Monitor sugars and continue coverage insulin
Obesity
-[facility]
Obstructive Sleep Apnea
-Continue CPAP
DVT proph: Lovenox
Code Status: Full Code
--- NOTE | 2024-12-15 22:44 | W.PN.UPDATE ---
Addendum entered and electronically signed by Saqib Khan MD 12/16/24 12:31:
12/16/24 MR R Anitra - No Joint W/o And With
IMPRESSION:
Enhancing intermediate T1-weighted signal involving the plantar soft tissues of the first digit as described. Findings would be compatible with cellulitis.
There is no evidence for an abscess.
Mild signal abnormality and enhancement of the sesamoid bones as described, distribution highly suggestive of degenerative changes of the sesamoids.
No MR evidence to suggest osteomyelitis.
Mild tendinosis and tenosynovitis involving the flexor hallucis longus, likely reactive.
Original Note:
Update Note
Progress Note Update
This note serves as an addendum to the H&P by companion caregiver Brien MCMULLEN
HPI
84M Obese, REX, IDDM, CABG, TAVR pw redness and pain in R foot , following stepped on a rail nail a week ago
- denied fever and chills
- had OP US but no report
PHX; see below
Relevant VS
Vital Signs
Temp Pulse Resp BP Pulse Ox
98.2 F 72 16 118/67 100
12/15/24 22:47 12/15/24 22:47 12/15/24 22:47 12/15/24 22:47 12/15/24 22:47
PE
Gen: overweight , not toxic
HEENT: anicteric
Neck: supple
Lungs: CTA
Cor: RRR S1 S2
Abdomen:�
MS:
Relevant data�
12/15/24
19:55
WBC 2.1 L*
RBC 4.69 L
Abs Neuts (Manual) 0.7 L*
Segmented Neutrophils 37 L
Monocytes (Manual) 24 H
Glucose 155 H
US Non Vasc LOWER Ext RT
No abnormal fluid collection or retained foreign body identified sonographically
Last t admission to CTS service :Date of Admission: 11/19/23 - Date of Discharge: 11/23/23
Procedures:
1. Coronary artery bypass grafting x [address] Andrew Orta MD. 11/19/23 (greater saphenous vein to obtuse marginal 1, greater saphenous vein to OM 4)
Primary Diagnosis:
1. Coronary artery disease status post percutaneous intervention and stenting
2. 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
3. Transcatheter aortic valve replacement 2021
ASSESSMENT & PLAN
Pending Rx reconciliation
R diabetic foot pain s/p penetrating nail injury
- no fever abd chill s
- further imaging MRI foot in AM
- c/w empiric IV vanco and Zosyn
- check MRSA screen
Leucopenia of uncertain chronicity and uncertain etiology
- Trend WCC with diff
Known HX
1. Coronary artery disease status post percutaneous intervention and stenting
2. 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
3. Transcatheter aortic valve replacement 2021
4. Insulin-dependent diabetes mellitus type 2
5. Obesity
6. Obstructive sleep apnea with continuous positive airway pressure machine
7. Stable angina
8. Dyspnea upon exertion
9. Hypertension
10. Hyperlipidemia
11. Cerebrovascular accident with right hand sensation deficit
12. Beach's esophagitis
13. Gastroesophageal reflux disease
14. Status post coronary artery bypass grafting x 2 11/19/[address] Andrew Orta MD.
DVT Px: LMWH
Full juan
OBS MS
[2024-12-15 22:47] VITALS: BP 118/67
[2024-12-15 23:01] LABS: C-Reactive Protein < 5.00 mg/L (0.0-10.00)
[2024-12-15] MEDS: VANCOCIN 540 MG IV (23:40)
[2024-12-15 23:51] VITALS: BP 149/66
[2024-12-16] VITALS: BP 157/67
--- NOTE | 2024-12-16 01:42 | RESPNOTE ---
Patient refused to wear Cpap as ordered
[2024-12-16] MEDS: ZOSYN 50 IV ×3 (05:07→16:39)
[2024-12-16 07:06] LABS: Blood Urea Nitrogen 11 mg/dl (9-20); Calcium 9.5 mg/dl (8.4-10.2); Carbon Dioxide 25 mmol/L (22-30); Chloride 109 mmol/L (98-107); Estimated Creatinine Clearance 81 ml/min; Glucose 106 mg/dl (70-99); Potassium 4.3 mmol/L (3.5-5.1); Sodium 139 mmol/L (135-145); eGFR > 60.00
[2024-12-16 07:12] LABS: Hematocrit 40.5 % (39.0-52.0); Hemoglobin 13.9 g/dL (13.0-18.0); Mean Corp Hgb Conc. 34.3 g/dL (33.0-37.0); Mean Corpuscular Volume 88.0 fL (80.0-94.0); Platelet Count 151 10^3/uL (130-400); Red Cell Dist. Width 13.8 % (11.5-14.5)
[2024-12-16 07:16] VITALS: BP 141/68
[2024-12-16 07:23] LABS: Glucose - Point of Care 111 mg/dl (70-99)
[2024-12-16 07:26] LABS: Normal RBC Morphology No; Ovalocytes 1+; Platelets Checked Yes; Total Cells Counted 100
[2024-12-16 07:29] LABS: Absolute Neutrophils -Man Diff 0.4 10^3/uL (1.4-6.5)
--- NOTE | 2024-12-16 08:09 | PHA.VAN.IN ---
Assessment
- Assessment
Renal Function: Appears similar to baseline
Concomitant Antimicrobials: piperacillin/tazobactam
AUC Dosing Plan
- Dosing Variables
Dosing Weight (kg): 83
Dosing CrCl (ml/min): 81
Vd coefficient (L/kg): 0.7
- Empiric Dosing
Initial / Loading Dose: 2000mg - 12/15 23:40
Maintenance Regimen: Vanc 1000mg Q12H starting at 1800
Estimated AUC (mcg*h/mL): 498
Estimated Peak (mcg*h/mL): 29.8
Estimated Trough (mcg/ml): 13.6
Estimated Half Life (H): 9.7
- Monitoring
No levels ordered at this time: consider levels in next few days
Pharmacokinetics Vancomycin I
- -
Patient Age: 84
Patient Sex: Male
Vancomycin Day #: 1
Indication: Skin And Soft Tissue
Requesting Provider: Vivek Roach
Pertinent Antimicrobial Allergies:
no pertinent antibiotic allergies
Height / Weight:
Height 5 ft 6 in
Actual Weight 83.007 kg
Pertinent Past Medical History: DM II
- Vital Signs / Lab Results
Temp Pulse Resp BP Pulse Ox
97.6 F 55 16 141/68 98
12/16/24 07:16 12/16/24 07:16 12/16/24 07:16 12/16/24 07:16 12/16/24 07:16
Lab Results - Hematology
12/15/24 12/16/24
19:55 06:41
WBC 2.1 L* 1.9 L*
Band Neutrophils 0 0
Lab Results - Chemistry
12/15/24 12/16/24
19:55 06:41
BUN 12 11
Creatinine 0.7 0.7
Estimated Creat Clear 81 81
Albumin 4.5
[2024-12-16] MEDS: ASPIR LOW (ENTERIC COATED) 81 MG PO (08:13)
[2024-12-16] MEDS: TOPROL XL 25 MG PO (08:13)
[2024-12-16] MEDS: NOVOLOG FLEXPEN-MODERATE RESISTANCE SC ×3 (08:13→17:28)
[2024-12-16] MEDS: PEPCID 20 MG PO ×2 (08:14→21:03)
[2024-12-16] MEDS: KEPPRA 500 MG PO ×2 (08:14→21:03)
[2024-12-16] MEDS: PLAVIX 75 MG PO (08:14)
[2024-12-16] MEDS: ZETIA 10 MG PO (08:43)
[2024-12-16] MEDS: LANTUS 0.1 UNITS SC ×2 (08:43→21:04)
[2024-12-16] MEDS: CARDURA 4 MG PO (08:43)
[2024-12-16 09:28] LABS: Glycohemoglobin (HgbA1c) 6.0 % (4.0-5.6)
[2024-12-16 11:46] LABS: Glucose - Point of Care 143 mg/dl (70-99)
--- NOTE | 2024-12-16 15:07 | CM ---
Addendum entered by Omaira Buenrostro 12/16/24 15:18:
RASHEED notice explained; form signed @ [id number]
Original Note:
Met with patient and his daughter at the bedside
[facility] [address] [facility]
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
PLOF: independent with ambulation, stairs, and ADLs; works part-time [employer]. DME: Continuous Glucose Monitor, CPAP, Hearing Aids
NO SNF or Home Health utilization history
Daughter will transport home
Plan: anticipate discharge to home when medically stable; Case Management will monitor and support needs if identified
[2024-12-16 15:23] VITALS: BP 164/72
--- NOTE | 2024-12-16 15:46 | W.PN.HOSP.TC ---
Addendum entered and electronically signed by Jamal Atkinson MD 12/17/24 12:53:
I personally reviewed and evaluated this patient with the resident. I agree with above unless if otherwise stated below.
I personally reviewed labs and imaging consultant rn notes case management note
Original Note:
Today's Communication/Plan
-
MRI of the right foot
Continue Vancomycin and Zosyn
follow blood culture
ID consulted
Podiatry consulted
Assessment / Plan
Assessment / Plan
84 y/o male past medical history of CAD, CVA, s/p TAVR, HTN, DM and REX who presents with right foot pain. Patient reports he stepped on a nail two weeks ago. He was seen by his primary care provider who gave him a tetanus shot and started him
on Augmentin. Patient reports he continues to have significant pain in the foot. He did have an x-ray of the foot on December 08 and ultrasound on December 16 without any significant findings. He denies any fevers, sweats or chills.
Plan:
#Right Foot Pain
-Leukopenia / Neutropenia raises concern for underlying infection
-MRI of right foot , showed cellulitis with no signs of osteomyelitis
-Continue Vancomycin and Zosyn
- check blood cultures
#Leukopenia with Neutropenia
likely secondary to underlying infection (cellulitis)
#ASCVD
-Continue aspirin and Plavix
#Essential Hypertension
-Continue metoprolol and doxazosin
#Hyperlipidemia
-Continue atorvastatin and ezetimibe
#Diabetes Mellitus, Type II
-Continue Lantus
-Monitor sugars and continue coverage insulin
#Obesity
-Patient using Mounjaro as outpatient
#Obstructive Sleep Apnea
-Continue CPAP
DVT proph: Lovenox
Code Status: Full Code
Anticipated Discharge: 24 - 48 hours
Subjective/Interval History
-
Date of Service: December 16, 2024
Patient stated that he still has right foot pain but it is less in intensity now. denied fever, chills, nausea, vomiting.
Objective Data
-
Labs:
Laboratory Results
12/16/24
06:41
WBC 1.9 L*
Hgb 13.9
Hct 40.5
Plt Count 151
Sodium 139
Potassium 4.3
Chloride 109 H
Carbon Dioxide 25
BUN 11
Creatinine 0.7
Glucose 106 H
Calcium 9.5
Vital Signs:
Vital Signs
Temp Pulse Resp BP Pulse Ox
97.5 F 64 18 164/72 96
12/16/24 15:23 12/16/24 15:23 12/16/24 15:23 12/16/24 15:23 12/16/24 15:23
I&O
12/15/24 12/16/24 12/17/24
06:59 06:59 06:59
Intake Total 300 / 300
Balance 300 / 300
Review of Systems
-
History Source: Patient
Respiratory: Reports No Symptoms
Cardiac: Reports No Symptoms
Abdomen/GI: Reports No Symptoms
Genitourinary: Reports No Symptoms
Musculoskeletal: Reports Other (right foot pain)
Neuro: Reports No Symptoms
Physical Exam
-
General: Well Developed, No Apparent Distress and Comfortable
HEENT: Normocephalic and Atraumatic
Respiratory: Clear to Auscultation
Cardiac: Regular Rhythm and S1/S2
GI: Soft, Nontender and Nondistended
Genito-urinary: Clear Urine
Musculoskeletal: No Clubbing, No Cyanosis, Edema, Right Lower Extrem and Other (erythema, warmth on the planter of the right foot including the toe, no open wound )
Skin: Warm and Dry
Neuro: Awake, Alert and Oriented
--- NOTE | 2024-12-16 15:52 | W.PN.UPDATE ---
Update Note
Progress Note Update
Right foot pain
MRI demonstrating cellulitis with potential tendon involvement no osteomyelitis fortunately
IV antibiotics
Blood cultures x 2, follow-up
Podiatry and infectious disease consult
CAD s/p CABG
Continue DAPT statin beta-karlo
Hypertension
Continue antihypertensives
Hyperlipidemia
Statin and Zetia
Diabetes type 2
Continue Lantus
Accu-Chek sliding scale goal blood glucose 140-180
Obesity
Hold Mounjaro
REX
Continue CPAP
--- NOTE | 2024-12-16 16:44 | CON.ID ---
Consultation
-
Date/Time Consultation Requested: December 16, 2024 1549
Date/Time Consultation Performed: December 16, 2024 1645
Requesting Provider: Dr. Tonja Baeza
Performing Provider: Dr. Vanessa Herrera
Reason for Consultation: Foot cellulitis
Chief Complaint / Past History
Chief Complaint
Persistent right foot pain
History of Present Illness
84-year-old male with history of diabetes mellitus, CAD, TAVR who presented to the ER December night due to persistent right foot pain. Patient reports 16 days ago, he was moving furniture to replace the virgilio. He accidentally stepped on a nail
which penetrated through his old pair sneakers onto his right first metatarsal close of the met head. He removed the nail saw his PCP who gave him a tetanus vaccine and prescribed 1 week course of Augmentin. 12/08 Foot x-ray showed no foreign body.
12/14 Foot ultrasound showed no abscess. However he continued with pain over the entire first metatarsal. He was referred to podiatry who debrided the wound and gave him another 1 week course of Augmentin. Pain has not improved and therefore
podiatry recommended hospital admission. He denies fevers or chills. No erythema. In ED afebrile, white count noted to be 2.0 with absolute neutrophil count of 700. MRI: Enhancement involving the plantar soft tissue of the first digit, no
osteomyelitis, mild tendinosis and tenosynovitis involving the flexor hallucis longus, likely reactive. He is currently on Zosyn and vancomycin. Neutropenia is worse today. Denies history of hematological disorder. Patient reports that the foot
pain has improved. He is adamant about being discharged tomorrow. He agreed to stay 1 more night.
Past History
Additional Past Medical History:
Diabetes mellitus type 2
Hypertension
Dyslipidemia
CAD status post CABG
Aortic stenosis status post TAVR
CVA with residual right hand numbness
Essential tremor
Obstructive sleep apnea
Beach's esophagus hiatal hernia repair
Allergy History:
meperidine (From Demerol) Allergy (Verified 12/15/24 22:19)
Nausea / Vomiting
pollen extracts Allergy (Verified 12/15/24 21:05)
seasonal allergies
Medications Reviewed: Yes
Current Antibiotics:
Zosyn
Vancomycin
Social History
Tobacco: Former Smoker
Alcohol: Daily (2 glasses of wine)
Drug: None
Employment: Employed ([employer])
Family History
Family History: Not Pertinent
Review of Systems
Review of Systems
General: Negative Fever, Chills or Change in Appetite
HEENT: Negative Stiff Neck
Cardiovascular: Negative Chest Pain or Dyspnea
Respiratory: Negative Dyspnea or Cough
Gasteroenterology: Negative Nausea, Vomiting or Diarrhea
Genital / Urological: Negative Dysuria or Flank Pain
Endocrine: Negative Weakness or Fatigue
All systems: All other systems were reviewed and were negative
Vital Signs
Temp Pulse Resp BP Pulse Ox
97.5 F 64 18 164/72 96
12/16/24 15:23 12/16/24 15:23 12/16/24 15:23 12/16/24 15:23 12/16/24 15:23
Physical Exam
Physical Exam
Constitutional: No Acute Distress and Comfortable
Eyes: No Conjunctival Hemorrhage and Sclera Anicteric
Cardiovascular: Regular Rate and S1/S2
Pulmonary: Clear
Gastrointestinal: Soft, Non Tender, Non Distended and Normal Bowel Sounds
Genito-Urinary: Negative CVA Tenderness
Extremities: Other (Right foot plantar first metatarsal without erythema, no wounds, no edema. ); Negative Edema or Erythema
Musculoskeletal: Negative Spinal Tenderness
Neurological: AO x 3
Lab / Diagnostic Study Results
12/16/24 06:41
12/16/24 06:41
Total Counted 100 12/16/24 06:41
Abs Neuts (Manual) 0.4 10^3/uL (1.4-6.5) L* 12/16/24 06:41
Segmented Neutrophils 25 % (42-75) L 12/16/24 06:41
Band Neutrophils 0 % (0-3) 12/16/24 06:41
Lymphocytes (Manual) 35 % (20-51) 12/16/24 06:41
Eosinophils (Manual) 5 % (0-6) 12/16/24 06:41
Basophils (Manual) 2 % 12/15/24 19:55
ESR 15 mm/hour (0-20) 12/15/24 19:55
C-Reactive Protein < 5.00 mg/L (0.0-10.00) 12/15/24 19:55
Microbiology Results
Micro:
12/15/24 22:31 Blood Culture - Pending
Blood/Venous
12/15/24 22:33 Blood Culture - Pending
Blood/Venous
12/16/24 MRI RLE: Enhancing intermediate T1-weighted signal involving the plantar soft tissues of the first digit as described. Findings would be compatible with cellulitis. There is no evidence for an abscess. Mild signal abnormality and
enhancement of the sesamoid bones as described, distribution highly suggestive of degenerative changes of the sesamoids. No MR evidence to suggest osteomyelitis.
Assessment / Plan
# Recent nail penetration through sneakers into right first metatarsal area without response of pain to 2 weeks of Augmentin.
# Right foot cellulitis along first metatarsal on MRI
# Flexor hallucis longus tendinosis.
# Worsening neutropenia - NOT due to infection, as pt is not septic.
# Noncompliance - pt adamant about leaving tomorrow.
- Must cover for Pseudomonas due to the nature of the injury.
- DC Vancomycin.
- DC Zosyn - in case beta-lactams contributing to neutropenia.
- De-escalate abx's to cefepime.
- Trend wbc.
- Follow clinically.
- I do not recommend discharge until neutropenia resolves, informed pt.
Appears patient is still planning to leave tomorrow. If that is the case, dc on cipro 500mg bid x 14d. Check QTc in am.
[2024-12-16 17:26] LABS: Glucose - Point of Care 86 mg/dl (70-99)
[2024-12-16] MEDS: LOVENOX 40 MG SC (18:12)
[2024-12-16] MEDS: TYLENOL 650 MG PO (21:03)
[2024-12-16] MEDS: MAXIPIME 2000 MG IV (21:04)
[2024-12-16] MEDS: STERILE WATER FOR INJECTION 10 ML IV (21:04)
[2024-12-16 21:10] LABS: Glucose - Point of Care 115 mg/dl (70-99)
[2024-12-16 23:00] VITALS: BP 142/70
[2024-12-17] MEDS: MAXIPIME 2000 MG IV ×3 (05:54→21:52)
[2024-12-17] MEDS: STERILE WATER FOR INJECTION 10 ML IV ×3 (05:55→21:52)
[2024-12-17 07:09] LABS: Hematocrit 42.2 % (39.0-52.0); Hemoglobin 13.7 g/dL (13.0-18.0); Mean Corp Hgb Conc. 32.5 g/dL (33.0-37.0); Mean Corpuscular Volume 89.6 fL (80.0-94.0); Platelet Count 161 10^3/uL (130-400); Red Cell Dist. Width 13.7 % (11.5-14.5)
[2024-12-17 07:26] LABS: ALT (SGPT) 35 U/L (0-50); AST (SGOT) 33 U/L (17-59); Albumin 3.8 g/dl (3.5-5.0); Alkaline Phosphatase 65 U/L (38-126); Blood Urea Nitrogen 9 mg/dl (9-20); Calcium 9.2 mg/dl (8.4-10.2); Carbon Dioxide 27 mmol/L (22-30); Chloride 109 mmol/L (98-107); Estimated Creatinine Clearance 81 ml/min; Glucose 95 mg/dl (70-99); Potassium 4.0 mmol/L (3.5-5.1); Sodium 140 mmol/L (135-145); Total Protein 6.1 g/dl (6.3-8.2); eGFR > 60.00
[2024-12-17 07:47] LABS: Platelets Checked Yes
[2024-12-17 07:48] LABS: Normal RBC Morphology Yes; Total Cells Counted 100
[2024-12-17 07:49] LABS: Absolute Neutrophils -Man Diff 0.5 10^3/uL (1.4-6.5)
[2024-12-17] MEDS: PEPCID 20 MG PO ×2 (08:38→20:24)
[2024-12-17] MEDS: PLAVIX 75 MG PO (08:38)
[2024-12-17] MEDS: ASPIR LOW (ENTERIC COATED) 81 MG PO (08:38)
[2024-12-17] MEDS: LIPITOR 40 MG PO (08:38)
[2024-12-17] MEDS: ZETIA 10 MG PO (08:39)
[2024-12-17] MEDS: KEPPRA 500 MG PO ×2 (08:45→20:24)
[2024-12-17 08:55] LABS: Glucose - Point of Care 88 mg/dl (70-99)
[2024-12-17] MEDS: TOPROL XL 25 MG PO (08:56)
[2024-12-17] MEDS: CARDURA 4 MG PO (08:57)
--- NOTE | 2024-12-17 08:58 | W.PN.HOSP.TC ---
Addendum entered and electronically signed by Jamal Atkinson MD 12/17/24 14:00:
See update note
Original Note:
Today's Communication/Plan
-
plan reviewed with attending
hematology consult appreciated
Assessment / Plan
Assessment / Plan
84 y/o male past medical history of CAD, CVA, s/p TAVR, HTN, DM and REX who presents with right foot pain. Patient reports he stepped on a nail two weeks ago. He was seen by his primary care provider who gave him a tetanus shot and started him
on Augmentin. Patient reports he continues to have significant pain in the foot. He did have an x-ray of the foot on December 08 and ultrasound on December 16 without any significant findings. He denies any fevers, sweats or chills.
Plan: Discussion with pt regarding tx plans. Continue cefepime for cellulitis. 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 Heme consult for neutropenia.
#Right Foot Pain
-Leukopenia / Neutropenia raises concern for underlying infection
-MRI of right foot , showed cellulitis with no signs of osteomyelitis
-Continue cefepime per ID recs. Appreciate help
- ID following
- check blood cultures
#Leukopenia with Neutropenia
likely not secondary to underlying infection (cellulitis) per ID
Hemtology consult
#ASCVD
-Continue aspirin and Plavix
#Essential Hypertension
-Continue metoprolol and doxazosin
#Hyperlipidemia
-Continue atorvastatin and ezetimibe
#Diabetes Mellitus, Type II
-Continue Lantus
-Monitor sugars and continue coverage insulin
#Obesity
-Patient using Mounjaro as outpatient
#Obstructive Sleep Apnea
-Continue CPAP
DVT proph: Lovenox
Code Status: Full Code
Anticipated Discharge: Within 24 hours
Subjective/Interval History
-
Date of Service: December 17, 2024
Pt reports improved foot pain. Denies fever, chills, sweats.
Objective Data
-
Labs:
Laboratory Results
12/17/24
06:32
WBC 1.8 L*
Hgb 13.7
Hct 42.2
Plt Count 161
Sodium 140
Potassium 4.0
Chloride 109 H
Carbon Dioxide 27
BUN 9
Creatinine 0.7
Glucose 95
Calcium 9.2
Total Bilirubin 0.7
AST 33
ALT 35
Alkaline Phosphatase 65
Vital Signs:
Vital Signs
Temp Pulse Resp BP Pulse Ox
98.1 F 71 16 142/70 96
12/16/24 23:00 12/16/24 23:00 12/16/24 23:00 12/16/24 23:00 12/16/24 23:00
I&O
12/16/24 12/17/24 12/18/24
06:59 06:59 06:59
Intake Total 540 / 540
Balance 540 / 540
Review of Systems
-
History Source: Patient
All other systems: Reviewed and negative
Musculoskeletal: Reports Other (R foot pain, swelling and abnormalities )
Physical Exam
-
General: Well Developed, Well Nourished and No Apparent Distress (nontoxic appearing)
HEENT: Normocephalic, Atraumatic, Moist Mucous Membranes, Nose Appears Normal and Ears Appear Normal
Respiratory: Clear to Auscultation and Non Labored Respirations
Cardiac: Regular Rhythm and S1/S2
GI: Soft and Nontender
Musculoskeletal: Edema, Right Lower Extrem (pt reports mild pain upon palpation describing it as deep)
Skin: Warm and Dry
Neuro: Awake and AO x 3
[2024-12-17] MEDS: NOVOLOG FLEXPEN-MODERATE RESISTANCE SC ×2 (09:05→16:40)
[2024-12-17 09:29] VITALS: BP 159/77
--- NOTE | 2024-12-17 10:03 | PTCARENOTE ---
Notified provider that family is bringing in outside food, pt refusing to order from kitchen, (diabetic 2000 diet)
[2024-12-17] MEDS: LANTUS 0.1 UNITS SC ×2 (10:08→21:51)
--- NOTE | 2024-12-17 10:39 | W.CS.POD ---
Consult Summary - Podiatry
-
Pt seen this am at 825 per request for eval of cellulitis left foot w/ history of stepping on a nail.
Foot is unremarkable other than mild edema to the 2nd toe and forefoot, no cellulitis or drainage or sinus tract.
He will not require any surgical intervention at this time.
Full consult to follow
Thank you
--- NOTE | 2024-12-17 11:58 | CON.ONC ---
Consultation
-
Date Consultation Requested: 12/17/24
Date Consultation Performed: 12/17/24
Impression
Impression
Puncture wound to the foot with infectious complication
Isolated neutropenia
Diabetes mellitus
Plan
Plan
Isolated neutropenia is unlikely to represent a primary bone marrow issue
Most likely etiologies include infectious, medication or immunologically mediated
Augmentin is associated with granulocytopenia
Will consider alternate antibiotic to high-dose cephalosporin which can cause agranulocytosis
If persistent can resuscitate with G-CSF
Follow CBC
Patient History
History of Present Illness
Patient is an 84 y/o male past medical history of CAD, CVA, s/p TAVR, HTN, DM and REX who presents with right foot pain. Patient reports he stepped on a nail last week. He was seen by his primary care provider who gave him a tetanus shot and
started him on Augmentin. He denies any fevers, sweats or chills. He reports no history of abnormal blood counts.
Past-Medical/Surgical History
Past Medical History
Past Medical History:
Coronary Artery Disease s/p CABG
CVA with residual right hand numbness
Aortic Stenosis s/p TAVR
Essential Hypertension
Hyperlipidemia
Diabetes Mellitus, Type II
Obstructive Sleep Apnea
GERD / Beach's Esophagus
Essential Tremor
Past Surgical History
CABG
TAVR
Hiatal Hernia Repair
Trigger Finger Surgery x 3
Social History
Tobacco: Former Smoker
Alcohol: Daily (2 glasses of wine nightly)
Family History
Family History: Not pertinent
Patient Medication
�Medication �Instructions �Recorded �Confirmed �Last Taken �Type
Preservision 2 cap PO BID 10/23/23 11/19/23 11/18/23 08:00 History
Probiotic 1 cap PO DAILY 10/23/23 11/19/23 11/14/23 08:00 History
Rescue 1250 Fish Oil 2 cap PO DAILY 10/23/23 11/19/23 11/14/23 08:00 History
Slo Fe 45 mg PO DAILY 10/23/23 11/19/23 11/13/23 08:00 History
Vitamin B-12 1 tab PO DAILY 10/23/23 11/19/23 11/13/23 08:00 History
aspirin 81 mg tablet,delayed 81 mg PO DAILY Blood Clot 10/23/23 12/15/24 11/16/23 08:00 History
release Prevention/Tx
atorvastatin 40 mg tablet 40 mg PO DAILY High Cholesterol 10/23/23 12/15/24 11/18/23 08:00 History
azelastine 137 mcg (0.1 %) nasal 1 spray intranasal BID 10/23/23 11/19/23 11/18/23 08:00 History
spray
cholecalciferol (vitamin D3) 50 50 mcg PO DAILY Supplement 10/23/23 11/19/23 11/13/23 08:00 History
mcg (2,000 unit) capsule (Vitamin
D3)
coenzyme Q10 200 mg capsule (Co 200 mg PO DAILY Supplement 10/23/23 11/19/23 11/18/23 08:00 History
Q-10)
ezetimibe 10 mg tablet 10 mg PO DAILY High Cholesterol 10/23/23 12/15/24 11/18/23 08:00 History
famotidine 20 mg tablet 20 mg PO BID Gastrointestinal Issue 10/23/23 12/15/24 11/18/23 08:00 History
insulin glargine 100 unit/mL (3 10 unit SC BID 10/23/23 12/15/24 11/18/23 21:00 History
mL) subcutaneous pen (Lantus
Solostar U-100 Insulin)
levetiracetam 500 mg tablet 500 mg PO BID 10/23/23 12/15/24 11/18/23 08:00 History
melatonin 5 mg tablet 5 mg PO HS PRN sleep 10/23/23 12/15/24 11/17/23 21:00 History
resveratrol 1 cap PO DAILY 10/23/23 11/19/23 11/18/23 08:00 History
clopidogrel 75 mg tablet 75 mg PO DAILY Blood Clot 11/13/23 12/15/24 11/14/23 08:00 History
Prevention/Tx
prednisolone acetate 1 % eye 2 drp ophthalmic (eye) DAILY 11/20/23 12/15/24 Unknown History
drops,suspension
acetaminophen 500 mg tablet 1,000 mg (2 x 500 mg) PO 11/23/23 Unknown Rx
(Tylenol Extra Strength) TID@0600,1400,2200 PRN fever, mild
pain #0 tabs
doxazosin 4 mg tablet 4 mg PO DAILY 12/15/24 12/15/24 Unknown History
metoprolol succinate 25 mg 25 mg PO DAILY 12/15/24 12/15/24 Unknown History
tablet,extended release 24 hr
tirzepatide 5 mg/0.5 mL 2.5 mg SC CROWELL 12/15/24 12/15/24 Unknown History
subcutaneous pen injector
(Mounjaro)
fluticasone propionate 50 1 spray intranasal BID Allergies 12/16/24 12/16/24 Unknown History
mcg/actuation nasal
spray,suspension
Active Medications
Generic Name Dose Route Start Last Admin
Trade Name Freq PRN Reason Stop Dose Admin
Acetaminophen 650 mg 12/16/24 00:47 12/16/24 21:03
Acetaminophen 325 Mg Tablet PO 01/13/25 00:46 650 mg
Q4HPRN PRN Administration
mild pain/ fever>100.5F
Aspirin 81 mg 12/16/24 08:00 12/17/24 08:38
Aspirin 81 Mg (Enteric Coated) Tablet PO 01/13/25 07:59 81 mg
DAILY AMOL Administration
Atorvastatin Calcium 40 mg 12/17/24 08:00 12/17/24 08:38
Atorvastatin (Lipitor) 40 Mg Tablet PO 01/14/25 07:59 40 mg
DAILY AMOL Administration
Cefepime HCl 2,000 mg 12/16/24 22:00 12/17/24 05:54
Cefepime Hcl 2,000 Mg/12.5 Ml Vial IV 2,000 mg
Q8H AMOL Administration
Clopidogrel Bisulfate 75 mg 12/16/24 08:00 12/17/24 08:38
Clopidogrel 75 Mg Tablet PO 01/13/25 07:59 75 mg
DAILY AMOL Administration
Dextrose 12.5 grams 12/16/24 00:49
Dextrose 50% (0.5 Grams/Ml) 50 Ml Syringe IV 01/13/25 00:48
[id number] PRN
hypoglycemia
Protocol
Doxazosin Mesylate 4 mg 12/16/24 08:00 12/17/24 08:57
Doxazosin 4 Mg Tablet PO 01/13/25 07:59 4 mg
DAILY AMOL Administration
Ezetimibe 10 mg 12/16/24 08:00 12/17/24 08:39
Ezetimibe (Zetia) 10 Mg Tablet PO 01/13/25 07:59 10 mg
DAILY AMOL Administration
Enoxaparin Sodium 40 mg 12/16/24 18:00 12/16/24 18:12
Enoxaparin Sodium 40 Mg/0.4 Ml Syringe SC 01/13/25 17:59 40 mg
QPM AMOL Administration
Famotidine 20 mg 12/16/24 08:00 12/17/24 08:38
Famotidine 20 Mg Tablet PO 01/13/25 07:59 20 mg
BID AMOL Administration
Glucagon 1 mg 12/16/24 00:49
Glucagon 1 Mg Vial IM 01/13/25 00:48
PRN PRN
hypoglycemia
Protocol
Insulin Glargine 10 units/ 0.1 mls @ 0 mls/hr 12/16/24 08:00 12/17/24 10:08
Device SC 01/13/25 07:59 0.1 mls
BID AMOL Administration
As Directed
Insulin Aspart 0 units 12/16/24 07:30 12/17/24 09:05
Insulin Aspart Moderate Resistance 300 Units/3 Ml Pen.Injctr SC 01/13/25 07:29 Not Given
AC AMOL
Protocol
Levetiracetam 500 mg 12/16/24 08:00 12/17/24 08:45
Levetiracetam 500 Mg Regular Release Tablet PO 01/13/25 07:59 500 mg
BID AMOL Administration
Melatonin 5 mg 12/16/24 00:48
Melatonin 5 Mg Tablet PO 01/13/25 00:47
HS PRN
sleep
Metoprolol Succinate 25 mg 12/16/24 08:00 12/17/24 08:56
Metoprolol 25 Mg Extended Release Tablet PO 01/13/25 07:59 25 mg
DAILY AMOL Administration
Sterile Water 10 ml 12/16/24 22:00 12/17/24 05:55
Sterile Water For Injection 10 Ml Vial IV 01/13/25 21:59 10 ml
Q8H AMOL Administration
Review of Systems
-
12 point review of systems fails elicit additional complaints other than those reviewed in the HPI
Physical Exam
-
Physical Exam
HEENT: Anicteric and Moist mucous membranes
Respiratory: Clear
Cardiac: S1/S2 and Regular Rhythm
GI: Soft, Non Tender
Musculoskeletal: No Clubbing, No Cyanosis and Other (Mild tenderness to palpation right 1st MTP area without open wound/drainage
Skin: Warm, Dry and Other
Neuro: Awake, Alert, Oriented and Nonfocal/grossly intact
Psych: Calm
Labs
Lab Results
WBC 1.8 10^3/uL (4.8-10.8) L* 12/17/24 06:32
RBC 4.71 10^6/uL (4.70-6.10) 12/17/24 06:32
Hgb 13.7 g/dL (13.0-18.0) 12/17/24 06:32
Hct 42.2 % (39.0-52.0) 12/17/24 06:32
MCV 89.6 fL (80.0-94.0) 12/17/24 06:32
MCH 29.1 pg (27.0-31.0) 12/17/24 06:32
MCHC 32.5 g/dL (33.0-37.0) L 12/17/24 06:32
RDW 13.7 % (11.5-14.5) 12/17/24 06:32
Plt Count 161 10^3/uL (130-400) 12/17/24 06:32
MPV 8.9 fL (7.4-10.4) 12/17/24 06:32
Creatinine 0.7 mg/dL (0.7-1.3) 12/17/24 06:32
Vital Signs
Vital Signs
Temp Pulse Resp BP Pulse Ox
97.6 F 57 19 159/77 98
12/17/24 09:29 12/17/24 09:29 12/17/24 09:29 12/17/24 09:29 12/17/24 09:29
[2024-12-17 12:25] LABS: Glucose - Point of Care 226 mg/dl (70-99)
--- NOTE | 2024-12-17 12:37 | W.PN.ID1 ---
Date of Service
Date of Service: December 17, 2024
Today's Communication
If ANC continues to trend up tomorrow, anticipate dc on cipro 500mg bid through 12/28.
Assessment / Plan
# Recent nail penetration through sneakers into right first metatarsal area without response of pain to 2 weeks of Augmentin.
# Right foot cellulitis along first metatarsal on MRI
. Clincally improving
# Flexor hallucis longus tendinosis.
# Neutropenia
. NOT due to infection, as pt is not septic.
. Could be related to recent Augmentin, then Zosyn.
. ANC slightly improved from 400 to 500, off Zosyn.
Plan:
- Continue cefepime (d1/d3 abx) to cover for Pseudomonas due to the nature of the injury.
- Trend wbc/ANC
- Appreciate Hem/Onc
- Pt agreeable to stay today.
If ANC continues to trend up tomorrow, anticipate dc on cipro 500mg bid through 12/28. QTc <500.
Chief Complaint
-: Cellulitis and Other (Neutropenia)
Subjective / Review of Systems
Foot pain continues to improve. Willing to stay another day.
Vital Signs / Physical Exam
Vital Signs
Vital Signs
Temp Pulse Resp BP Pulse Ox
97.6 F 57 19 159/77 98
12/17/24 09:29 12/17/24 09:29 12/17/24 09:29 12/17/24 09:29 12/17/24 09:29
Physical Exam
Constitutional: No Acute Distress and Comfortable
Oropharyngeal: Benign
Cardiovascular: Regular Rate and S1/S2
Pulmonary: Clear
Gastrointestinal: Soft, Non Tender, Non Distended and Normal Bowel Sounds
Extremities: Negative Edema or Erythema
Neurological: AO x 3
Objective Data
Lab Data
Lab Results
12/17/24 06:32
12/17/24 06:32
ESR 15 mm/hour (0-20) 12/15/24 19:55
Estimated Creat Clear 81 ml/min 12/17/24 06:32
Total Bilirubin 0.7 mg/dl (0.2-1.3) 12/17/24 06:32
AST 33 U/L (17-59) 12/17/24 06:32
ALT 35 U/L (0-50) 12/17/24 06:32
Alkaline Phosphatase 65 U/L (38-126) 12/17/24 06:32
C-Reactive Protein < 5.00 mg/L (0.0-10.00) 12/15/24 19:55
Most recent labs reviewed.
Micro Results:
12/15/24 22:31 Blood Culture - Preliminary
Blood/Venous No Growth in 24 hours- Final report to follow
12/15/24 22:33 Blood Culture - Preliminary
Blood/Venous No Growth in 24 hours- Final report to follow
12/16/24 MRI RLE: Enhancing intermediate T1-weighted signal involving the plantar soft tissues of the first digit as described. Findings would be compatible with cellulitis. There is no evidence for an abscess. Mild signal abnormality and
enhancement of the sesamoid bones as described, distribution highly suggestive of degenerative changes of the sesamoids. No MR evidence to suggest osteomyelitis.
--- NOTE | 2024-12-17 12:53 | W.PN.UPDATE ---
Update Note
Progress Note Update
Right foot pain
MRI demonstrating cellulitis with potential tendon involvement no osteomyelitis fortunately
IV antibiotics
Blood cultures x 2, follow-up
Podiatry and infectious disease consult
Neutropenia
Hematology does not believe this is a primary marrow issue
Could be related to antibiotics infection
Per ID continue cefepime
If ANC trending up then discharge on p.o. 500 mg twice a day until 12/28
CAD s/p CABG
Continue DAPT statin beta-karlo
Hypertension
Continue antihypertensives
Hyperlipidemia
Statin and Zetia
Diabetes type 2
Continue Lantus
Accu-Chek sliding scale goal blood glucose 140-180
Obesity
Hold Mounjaro
REX
Continue CPAP
Update provided to daughter and granddaughter at bedside
I personally reviewed and evaluated this patient with the resident. I agree with above unless if otherwise stated below.
I personally reviewed labs and imaging health consultant notes case management note
[2024-12-17] MEDS: NOVOLOG FLEXPEN-MODERATE RESISTANCE 3 UNITS SC (13:03)
[2024-12-17] MEDS: TYLENOL 650 MG PO (15:05)
[2024-12-17 16:39] LABS: Glucose - Point of Care 145 mg/dl (70-99)
[2024-12-17 16:57] VITALS: BP 131/71
[2024-12-17] MEDS: LOVENOX 40 MG SC (18:20)
--- NOTE | 2024-12-17 21:17 | CON.MD ---
Consultation - Medical
-
Chief Complaint / Past History:
Persistent right foot pain
History of Present Illness:
84-year-old male with history of diabetes mellitus, CAD, TAVR who presented to the ER December night due to persistent right foot pain. Patient reports 16 days ago, he was moving furniture to replace the virgilio. He accidentally stepped on a nail
which penetrated through his old pair sneakers onto his right first metatarsal close of the met head. He removed the nail saw his PCP who gave him a tetanus vaccine and prescribed 1 week course of Augmentin. 12/08 Foot x-ray showed no foreign body.
12/14 Foot ultrasound showed no abscess. However he continued with pain over the entire first metatarsal. He was referred to podiatry who debrided the wound and gave him another 1 week course of Augmentin. Pain has not improved and therefore
podiatry recommended hospital admission. He denies fevers or chills. No erythema. In ED afebrile, white count noted to be 2.0 with absolute neutrophil count of 700. MRI: Enhancement involving the plantar soft tissue of the first digit, no
osteomyelitis, mild tendinosis and tenosynovitis involving the flexor hallucis longus, likely reactive. He is currently on Zosyn and vancomycin. Neutropenia is worse today. Denies history of hematological disorder. Patient reports that the foot
pain has improved.
Past History
Additional Past Medical History:
Diabetes mellitus type 2
Hypertension
Dyslipidemia
CAD status post CABG
Aortic stenosis status post TAVR
CVA with residual right hand numbness
Essential tremor
Obstructive sleep apnea
Beach's esophagus hiatal hernia repair
Allergy History:
MEDICATIONS:
meperidine (From Demerol) Allergy (Verified 12/15/24 22:19)
Nausea / Vomitingpollen extracts Allergy (Verified 12/15/24 21:05)
seasonal allergies
Medications Reviewed: Yes
Current Antibiotics:
Zosyn
Vancomycin
Social History
Tobacco: Former Smoker
Alcohol: Daily (2 glasses of wine)
Drug: None
Employment: Employed ([employer])
Family History
Family History: Not Pertinent
Review of Systems
Review of Systems
General: Negative Fever, Chills or Change in Appetite
HEENT: Negative Stiff Neck
Cardiovascular: Negative Chest Pain or Dyspnea
Respiratory: Negative Dyspnea or Cough
Gasteroenterology: Negative Nausea, Vomiting or Diarrhea
Genital / Urological: Negative Dysuria or Flank Pain
Endocrine: Negative Weakness or Fatigue
All systems: All other systems were reviewed and were negative
Vital Signs
Temp Pulse Resp BP Pulse Ox
97.5 F 64 18 164/72 96
12/16/24 15:23 12/16/24 15:23 12/16/24 15:23 12/16/24 15:23 12/16/24 15:23
Physical Exam
Physical Exam
Constitutional: No Acute Distress and Comfortable, AAO x 3
Extremities: DPA 2/4 B/L, [employer] is feeble but palpable. There is intact protective sensation, left foot without cellulitis, mild edema left 2nd toe base w/o warmth or wound noted, mild tenderness to the base of the 2nd toe
Lab / Diagnostic Study Results:
12/16/24 06:41
Total Counted 100 12/16/24 06:41
Abs Neuts (Manual) 0.4 10^3/uL (1.4-6.5) L* 12/16/24 06:41
Segmented Neutrophils 25 % (42-75) L 12/16/24 06:41
Band Neutrophils 0 % (0-3) 12/16/24 06:41
Lymphocytes (Manual) 35 % (20-51) 12/16/24 06:41
Eosinophils (Manual) 5 % (0-6) 12/16/24 06:41
Basophils (Manual) 2 % 12/15/24 19:55
ESR 15 mm/hour (0-20) 12/15/24 19:55
C-Reactive Protein < 5.00 mg/L (0.0-10.00) 12/15/24 19:55
Microbiology Results
12/15/24 22:31 Blood Culture - Pending
Blood/Venous
12/15/24 22:33 Blood Culture - Pending
Blood/Venous
12/16/24 MRI RLE: Enhancing intermediate T1-weighted signal involving the plantar soft tissues of the first digit as described. Findings would be compatible with cellulitis. There is no evidence for an abscess. Mild signal abnormality and
enhancement of the sesamoid bones as described, distribution highly suggestive of degenerative changes of the sesamoids. No MR evidence to suggest osteomyelitis.
Assessment / Plan
1-Foreign body/ nail penetration through sneakers into right forefoot x 2 weeks
2-Right foot cellulitis per MRI
3-Flexor hallucis longus tendinosis.
4-Pain right foot
--> Patient does not require exploratory surgery or I&D left foot. I believe Cipro will help with any residual infection and pain secondary to trauma.
Will sign off. Recommend follow up with Dr Kobe Ellington, patient's Radiology Orderly for follow up
Consultation
-
Date/Time Consultation Requested: 12/16/2024 @ 1710
Date/Time Consultation Performed: 12/17/2024 825
Requesting Provider: Dr Tonja Ling
Performing Provider: Dr Sravani Flores
Reason for Consultation: Left foot cellulitis
[2024-12-17 21:53] LABS: Glucose - Point of Care 133 mg/dl (70-99)
[2024-12-17 23:00] VITALS: BP 150/72
[2024-12-18] MEDS: STERILE WATER FOR INJECTION 10 ML IV (05:29)
[2024-12-18] MEDS: MAXIPIME 2000 MG IV (05:29)
[2024-12-18 06:58] LABS: Hematocrit 41.2 % (39.0-52.0); Hemoglobin 13.9 g/dL (13.0-18.0); Mean Corp Hgb Conc. 33.7 g/dL (33.0-37.0); Mean Corpuscular Volume 88.8 fL (80.0-94.0); Platelet Count 167 10^3/uL (130-400); Red Cell Dist. Width 13.7 % (11.5-14.5)
[2024-12-18 07:24] LABS: ALT (SGPT) 34 U/L (0-50); AST (SGOT) 31 U/L (17-59); Albumin 3.8 g/dl (3.5-5.0); Alkaline Phosphatase 64 U/L (38-126); Blood Urea Nitrogen 11 mg/dl (9-20); Calcium 9.5 mg/dl (8.4-10.2); Carbon Dioxide 28 mmol/L (22-30); Chloride 108 mmol/L (98-107); Estimated Creatinine Clearance 94 ml/min; Glucose 100 mg/dl (70-99); Potassium 4.0 mmol/L (3.5-5.1); Sodium 139 mmol/L (135-145); Total Protein 6.3 g/dl (6.3-8.2); eGFR > 60.00
[2024-12-18 07:36] LABS: Normal RBC Morphology Yes; Platelets Checked Yes; Total Cells Counted 100
[2024-12-18 07:38] LABS: Absolute Neutrophils -Man Diff 0.3 10^3/uL (1.4-6.5)
[2024-12-18 07:51] VITALS: BP 160/80
[2024-12-18 08:06] LABS: Glucose - Point of Care 95 mg/dl (70-99)
[2024-12-18] MEDS: ZETIA 10 MG PO (08:59)
[2024-12-18] MEDS: LANTUS 0.1 UNITS SC ×2 (08:59→21:30)
[2024-12-18] MEDS: ASPIR LOW (ENTERIC COATED) 81 MG PO (08:59)
[2024-12-18] MEDS: TOPROL XL 25 MG PO (09:00)
[2024-12-18] MEDS: LIPITOR 40 MG PO (09:00)
[2024-12-18] MEDS: KEPPRA 500 MG PO ×2 (09:00→21:28)
[2024-12-18] MEDS: NOVOLOG FLEXPEN-MODERATE RESISTANCE SC ×3 (09:01→17:30)
[2024-12-18] MEDS: CARDURA 4 MG PO (09:01)
[2024-12-18] MEDS: PEPCID 20 MG PO ×2 (09:01→21:30)
[2024-12-18] MEDS: PLAVIX 75 MG PO (09:01)
--- NOTE | 2024-12-18 09:25 | W.PN.HOSP.TC ---
Addendum entered and electronically signed by Jamal Atkinson MD 12/18/24 12:24:
Right foot pain
MRI demonstrating cellulitis with potential tendon involvement no osteomyelitis fortunately
IV antibiotics, transistioned to cipro per ID
Blood cultures x 2, follow-up
Podiatry and infectious disease consult
Neutropenia
Hematology does not believe this is a primary marrow issue
Could be related to antibiotics infection
Per ID ?cross reactivity of cephalosporins and penicillins with the potenial of causing neutropenia.
-Therefore, stopped Cefepime and started Cipro
Repeat CBC in the AM
Per Hem can consider giving GCSF
If ANC trending up then discharge on p.o. 500 mg twice a day until 12/28
CAD s/p CABG
Continue DAPT statin beta-karlo
Hypertension
Continue antihypertensives
Hyperlipidemia
Statin and Zetia
Diabetes type 2
Continue Lantus
Accu-Chek sliding scale goal blood glucose 140-180
Obesity
Hold Mounjaro
REX
Continue CPAP
I personally reviewed and evaluated this patient with the resident. I agree with above unless if otherwise stated below.
I personally reviewed labs and imaging nutrition consultant notes case management note
Original Note:
Today's Communication/Plan
-
Plan reviewed with attending
GCSF injection per hematology
Cipro per ID
Assessment / Plan
Assessment / Plan
84 y/o male past medical history of CAD, CVA, s/p TAVR, HTN, DM and REX who presents with right foot pain. Patient reports he stepped on a nail two weeks ago. He was seen by his primary care provider who gave him a tetanus shot and started him
on Augmentin. Patient reports he continues to have significant pain in the foot. He did have an x-ray of the foot on December 08 and ultrasound on December 16 without any significant findings. He denies any fevers, sweats or chills.
Plan: Discussion with pt regarding tx plans. In contact with outpt watershed engineer. Heme consult for neutropenia, planning GCSF injection. Transition from cefepime to cipro. ANC decreased again today to 300 WBC 1.7.
Pt brought in home paulino since he takes it on Sundays.
#Right Foot Pain
-MRI of right foot , showed cellulitis with no signs of osteomyelitis
- Appreciate IC recs. Transition to cipro
- ID following
- check blood cultures. NGTD. Neutropenia unlikely associated with infxn.
#Leukopenia with Neutropenia
likely not secondary to underlying infection (cellulitis) per ID
Hematology consult. Plan fro GCSF injection
Possible agranulocytosis due to antibiotics. Continued downtrend
#ASCVD
-Continue aspirin and Plavix
#Essential Hypertension
-Continue metoprolol and doxazosin
#Hyperlipidemia
-Continue atorvastatin and ezetimibe
#Diabetes Mellitus, Type II
-Continue Lantus
-Monitor sugars and continue coverage insulin
#Obesity
-Patient using Paulino as outpatient. Brought in to take today
#Obstructive Sleep Apnea
-Continue CPAP
DVT proph: Lovenox
Code Status: Full Code
Anticipated Discharge: Within 24 hours
Subjective/Interval History
-
Date of Service: December 18, 2024
Pt reports continuing to feel well with foot pain improving. He complains of constipation.
Objective Data
-
Labs:
Laboratory Results
12/18/24
06:15
WBC 1.7 L*
Hgb 13.9
Hct 41.2
Plt Count 167
Sodium 139
Potassium 4.0
Chloride 108 H
Carbon Dioxide 28
BUN 11
Creatinine 0.6 L
Glucose 100 H
Calcium 9.5
Total Bilirubin 0.8
AST 31
ALT 34
Alkaline Phosphatase 64
Vital Signs:
Vital Signs
Temp Pulse Resp BP Pulse Ox
97.8 F 70 18 160/80 98
12/18/24 07:51 12/18/24 07:51 12/18/24 07:51 12/18/24 07:51 12/18/24 07:51
I&O
12/17/24 12/18/24 12/19/24
06:59 06:59 06:59
Intake Total 540 / 540 1380 / 1380
Balance 540 / 540 1380 / 1380
Physical Exam
-
General: Well Developed, Well Nourished, No Apparent Distress and Comfortable
HEENT: Normocephalic, Atraumatic, Moist Mucous Membranes, Nose Appears Normal and Ears Appear Normal
Respiratory: Clear to Auscultation and Non Labored Respirations
Cardiac: Regular Rhythm and S1/S2
GI: Soft, Nontender and Nondistended
Musculoskeletal: No Edema
Skin: Warm and Dry
Neuro: AO x 3, Nonfocal/Grossly Intact and DTR's Intact & Symmetrica
--- NOTE | 2024-12-18 10:24 | W.PN.ONC ---
Today's Communication / Plan
-
Discussed pros and cons of G-CSF
May shorten the duration of his neutropenia
Will give G-CSF for 480 mcg
Impression
Impression
Puncture wound to the foot with infectious complication
Isolated neutropenia
Diabetes mellitus
Plan
Plan
Isolated neutropenia is unlikely to represent a primary bone marrow issue
Most likely etiologies include infectious, medication or immunologically mediated
Augmentin is associated with granulocytopenia
Will consider alternate antibiotic to high-dose cephalosporin which can cause agranulocytosis
If persistent can resuscitate with G-CSF
Follow CBC
Subjective/Objective
Subjective/Objective
Patient continues to feel well. No fevers
Vital Signs:
Vital Signs
Temp Pulse Resp BP Pulse Ox
97.8 F 70 18 160/80 98
12/18/24 07:51 12/18/24 09:01 12/18/24 07:51 12/18/24 09:01 12/18/24 07:51
Physical exam unchanged
Lab Results:
Laboratory Data
WBC 1.7 10^3/uL (4.8-10.8) L* 12/18/24 06:15
Hgb 13.9 g/dL (13.0-18.0) 12/18/24 06:15
Plt Count 167 10^3/uL (130-400) 12/18/24 06:15
eGFR > 60.00 12/18/24 06:15
[2024-12-18] MEDS: GRANIX 480 MCG SC (11:24)
[2024-12-18] MEDS: CIPRO 500 MG PO ×2 (11:34→21:28)
[2024-12-18] MEDS: COLACE 100 MG PO (11:35)
[2024-12-18] MEDS: MIRALAX 17 GRAMS PO (11:35)
--- NOTE | 2024-12-18 11:53 | W.PN.ID1 ---
Date of Service
Date of Service: December 18, 2024
Today's Communication
Switch to different class of drug; cipro 500mg bid through 12/28.
Assessment / Plan
# Recent nail penetration through sneakers into right first metatarsal area without response of pain to 2 weeks of Augmentin.
. Suspect Pseudomonas due to the nature of the injury.
# Right foot cellulitis along first metatarsal on MRI
. Clinically improving
# Flexor hallucis longus tendinosis.
# Neutropenia
. Of note, outside lab on 11/21/24 normal WBC 4.5
. Could be related to recent Augmentin, then Zosyn, beta-lactam
. ANC declined from 500 to 300 (on cefepime)
Plan:
- Discontinue cefepime (d2/d4 abx)
- Switch to different class of drug; cipro 500mg bid through 12/28. QTC fine
Discussed monitor for worsening and/or new tendon pain.
- Appreciate Hem/Onc.
Discussed with Dr. Tamayo today. He will give G-CSF despite note afebrile.
- Follow wbc.
Chief Complaint
-: Cellulitis and Other (Neutropenia)
Subjective / Review of Systems
Feels well.
Vital Signs / Physical Exam
Vital Signs
Vital Signs
Temp Pulse Resp BP Pulse Ox
97.8 F 70 18 160/80 98
12/18/24 07:51 12/18/24 09:01 12/18/24 07:51 12/18/24 09:01 12/18/24 07:51
Physical Exam
Constitutional: No Acute Distress and Comfortable
Oropharyngeal: Benign
Cardiovascular: Regular Rate and S1/S2
Pulmonary: Clear
Gastrointestinal: Soft, Non Tender, Non Distended and Normal Bowel Sounds
Extremities: Negative Edema or Erythema
Neurological: AO x 3
Objective Data
Lab Data
Lab Results
12/18/24 06:15
12/18/24 06:15
ESR 15 mm/hour (0-20) 12/15/24 19:55
Estimated Creat Clear 94 ml/min 12/18/24 06:15
Total Bilirubin 0.8 mg/dl (0.2-1.3) 12/18/24 06:15
AST 31 U/L (17-59) 12/18/24 06:15
ALT 34 U/L (0-50) 12/18/24 06:15
Alkaline Phosphatase 64 U/L (38-126) 12/18/24 06:15
C-Reactive Protein < 5.00 mg/L (0.0-10.00) 12/15/24 19:55
Most recent labs reviewed.
Micro Results:
12/15/24 22:31 Blood Culture - Preliminary
Blood/Venous No Growth in 48 hours- Final report to follow
12/15/24 22:33 Blood Culture - Preliminary
Blood/Venous No Growth in 48 hours- Final report to follow
12/16/24 MRI RLE: Enhancing intermediate T1-weighted signal involving the plantar soft tissues of the first digit as described. Findings would be compatible with cellulitis. There is no evidence for an abscess. Mild signal abnormality and
enhancement of the sesamoid bones as described, distribution highly suggestive of degenerative changes of the sesamoids. No MR evidence to suggest osteomyelitis.
Care Review
Plan reviewed with: Physician (Drs. Tamayo and Francis Atkinson)
[2024-12-18 12:22] LABS: Glucose - Point of Care 109 mg/dl (70-99)
[2024-12-18] MEDS: NON-FORMULARY ITEM 5 MG SC (13:01)
[2024-12-18 15:39] VITALS: BP 132/61
[2024-12-18] MEDS: TYLENOL 650 MG PO (15:44)
[2024-12-18 17:29] LABS: Glucose - Point of Care 132 mg/dl (70-99)
[2024-12-18] MEDS: LOVENOX 40 MG SC (17:31)
[2024-12-18 21:01] LABS: Glucose - Point of Care 144 mg/dl (70-99)
[2024-12-18 23:00] VITALS: BP 153/69
[2024-12-19 07:00] VITALS: BP 146/71
[2024-12-19 07:53] LABS: Glucose - Point of Care 89 mg/dl (70-99)
[2024-12-19 07:56] VITALS: BP 146/71
[2024-12-19] MEDS: NOVOLOG FLEXPEN-MODERATE RESISTANCE SC ×2 (08:00→12:09)
--- NOTE | 2024-12-19 08:14 | W.PN.ONC2 ---
Today's Communication / Plan
-
repeat CBC with PCP in 1-2 weeks, refer to hematology for persistent neutropenia
Family at bedside and Maureen on phone provided update per pt request
Impression
Impression
Puncture wound to the foot with infectious complication
Isolated neutropenia
Diabetes mellitus
Plan
Plan
neutropenic precautions, s/p GCSF 12/18 with improvement of ANC from 300->700 so will repeat GCSF dose today
Isolated neutropenia is unlikely to represent a primary bone marrow issue
Most likely etiologies include infectious, medication or immunologically mediated
Augmentin is associated with granulocytopenia, now changed to cipro
Subjective/Objective
Subjective
afebrile, no hypoxia or hypotension
using tylenol for foot pain pain
using colace, miralax for constipation
Vital Signs:
Vital Signs
Temp Pulse Resp BP Pulse Ox
97.7 F 71 16 146/71 99
12/19/24 07:00 12/19/24 07:00 12/19/24 07:00 12/19/24 07:00 12/19/24 07:00
Lab Results:
Laboratory Data
WBC 1.7 10^3/uL (4.8-10.8) L* 12/18/24 06:15
Hgb 13.9 g/dL (13.0-18.0) 12/18/24 06:15
Plt Count 167 10^3/uL (130-400) 12/18/24 06:15
eGFR > 60.00 12/18/24 06:15
Physical Exam
HEENT: Moist Mucous Membranes; No Jaundice
Pulmonary: Other (unlabored)
GI: Soft
Extremities: Pulses Present
Neuro: Non Focal
[2024-12-19 08:26] LABS: Hematocrit 40.8 % (39.0-52.0); Hemoglobin 13.9 g/dL (13.0-18.0); Mean Corp Hgb Conc. 34.1 g/dL (33.0-37.0); Mean Corpuscular Volume 88.9 fL (80.0-94.0); Platelet Count 144 10^3/uL (130-400); Red Cell Dist. Width 13.6 % (11.5-14.5)
[2024-12-19] MEDS: PLAVIX 75 MG PO (09:08)
[2024-12-19] MEDS: ZETIA 10 MG PO (09:08)
[2024-12-19] MEDS: LIPITOR 40 MG PO (09:08)
[2024-12-19] MEDS: CARDURA 4 MG PO (09:08)
[2024-12-19 09:09] LABS: ALT (SGPT) 36 U/L (0-50); AST (SGOT) 35 U/L (17-59); Albumin 3.8 g/dl (3.5-5.0); Alkaline Phosphatase 62 U/L (38-126); Blood Urea Nitrogen 9 mg/dl (9-20); Calcium 9.4 mg/dl (8.4-10.2); Carbon Dioxide 27 mmol/L (22-30); Chloride 107 mmol/L (98-107); Estimated Creatinine Clearance 94 ml/min; Glucose 86 mg/dl (70-99); Potassium 4.2 mmol/L (3.5-5.1); Sodium 140 mmol/L (135-145); Total Protein 6.2 g/dl (6.3-8.2); eGFR > 60.00
[2024-12-19] MEDS: CIPRO 500 MG PO (09:09)
[2024-12-19] MEDS: ASPIR LOW (ENTERIC COATED) 81 MG PO (09:09)
[2024-12-19] MEDS: TOPROL XL 25 MG PO (09:09)
[2024-12-19] MEDS: PEPCID 20 MG PO (09:09)
[2024-12-19] MEDS: KEPPRA 500 MG PO (09:09)
[2024-12-19] MEDS: LANTUS 0.1 UNITS SC (09:13)
[2024-12-19 09:46] LABS: Platelets Checked Yes
[2024-12-19 09:47] LABS: Normal RBC Morphology Yes; Total Cells Counted 100
[2024-12-19 09:52] LABS: Absolute Neutrophils -Man Diff 0.7 10^3/uL (1.4-6.5)
--- NOTE | 2024-12-19 11:51 | W.PN.ID1 ---
Date of Service
Date of Service: December 19, 2024
Today's Communication
See below.
Assessment / Plan
# Recent nail penetration through sneakers into right first metatarsal area without response of pain to 2 weeks of Augmentin.
. Suspect Pseudomonas due to the nature of the injury.
# Right foot cellulitis along first metatarsal on MRI
. Clinically improving
# Flexor hallucis longus tendinosis.
# Neutropenia
. Of note, outside lab on 11/21/24 normal WBC 4.5
. Could be related to recent Augmentin, then Zosyn, beta-lactam
. ANC declined from 500 to 300 (on cefepime)
. ANC improved from 300 to 700 after G-CSF and now on cipro
Plan:
- Continue cipro 500mg bid through 12/28. QTC fine
Discussed monitor for worsening and/or new tendon pain.
- c/o nocturia and dysuria at night.
Check UA reflex Ucx although doubt UTI as pt on abx with good UTI coverage.
- OK to dc from ID standpoint if UA unremarkable.
Chief Complaint
-: Cellulitis and Other (Neutropenia)
Subjective / Review of Systems
Past 3 days, noted nocturia with some dysuria. No urine sxs during the day.
Foot pain continues to improve.
Vital Signs / Physical Exam
Vital Signs
Vital Signs
Temp Pulse Resp BP Pulse Ox
97.7 F 71 16 146/71 99
12/19/24 07:00 12/19/24 09:08 12/19/24 07:00 12/19/24 09:08 12/19/24 07:00
Physical Exam
Constitutional: No Acute Distress and Comfortable
Cardiovascular: Regular Rate and S1/S2
Pulmonary: Clear
Gastrointestinal: Soft, Non Tender and Non Distended
Genito-Urinary: Negative CVA Tenderness
Neurological: AO x 3
Objective Data
Lab Data
Lab Results
12/19/24 07:20
12/19/24 07:20
ESR 15 mm/hour (0-20) 12/15/24 19:55
Estimated Creat Clear 94 ml/min 12/19/24 07:20
Total Bilirubin 1.2 mg/dl (0.2-1.3) 12/19/24 07:20
AST 35 U/L (17-59) 12/19/24 07:20
ALT 36 U/L (0-50) 12/19/24 07:20
Alkaline Phosphatase 62 U/L (38-126) 12/19/24 07:20
C-Reactive Protein < 5.00 mg/L (0.0-10.00) 12/15/24 19:55
Most recent labs reviewed.
Micro Results:
12/15/24 22:31 Blood Culture - Preliminary
Blood/Venous No Growth in 72 hours- Final report to follow
12/15/24 22:33 Blood Culture - Preliminary
Blood/Venous No Growth in 72 hours- Final report to follow
12/16/24 MRI RLE: Enhancing intermediate T1-weighted signal involving the plantar soft tissues of the first digit as described. Findings would be compatible with cellulitis. There is no evidence for an abscess. Mild signal abnormality and
enhancement of the sesamoid bones as described, distribution highly suggestive of degenerative changes of the sesamoids. No MR evidence to suggest osteomyelitis.
Care Review
Plan reviewed with: Physician (Dr. Dorado)
[2024-12-19 11:58] LABS: Glucose - Point of Care 104 mg/dl (70-99)
[2024-12-19] MEDS: TYLENOL 650 MG PO (12:11)
[2024-12-19 12:15] LABS: Urine Character Clear (Clear)
[2024-12-19 12:50] LABS: Urine Red Blood Cell 0-2 /HPF (0-2); Urine White Cell 0-2 /HPF (0-5)
--- NOTE | 2024-12-19 13:40 | CM ---
Pt changed to IP status this AM. IMM provided to Vicente; signed and placed on chart.
Pt is discharged to home; no needs identified.
--- NOTE | 2024-12-19 14:43 | W.PN.HOSP.TC ---
Addendum entered and electronically signed by Javier Dorado MD 12/19/24 15:25:
Attending�addendum:
I�saw�and�evaluated�the�patient.�I�reviewed�the�resident�s�note�and�agree�with�findings�and�plan�as�documented�in�the�resident�s�note.��
�patient seen and examined at bedside, denies any chest pain or shortness of breath, no abdominal pain, no nausea, no vomiting, no diarrhea or constipation.
Foot pain, plan to discharge home on oral Cipro through 12/28
Physical�exam:
GENERAL : Patient is awake, alert, oriented x3
HEENT: Nonicteric sclerae, PERRLA, EOMI. Oropharynx clear. Moist mucous membranes. Conjunctivae appear well perfused.
CHEST: Chest wall is nontender.
HEART: Regular rate and rhythm without murmurs.
LUNGS: Clear to auscultation bilaterally.
ABDOMEN: Soft, positive bowel sounds, nontender, no organomegaly.
RECTAL: Deferred.
SKIN: No rash, no excessive bruising, petechiae, or purpura.
NEUROLOGIC: Cranial nerves II-XII intact without motor/sensory deficit.
�
Assessment/plan:
Right foot pain.
Secondary to tenosynovitis caused by foreign body.
Appreciate infectious disease input.
Discharge on Cipro
Leukopenia/neutropenia.
Improved.
Follow-up with hematology as outpatient
Coronary artery disease/hypertension/hyperlipidemia/diabetes.
Continue current meds
Abnormal labs:
Wounds:
CODE STATUS: Full code
DVT prophylaxis: Lovenox
Diet: Diabeticdiet
Family communication: Discussed with family at bedside
Disposition: Discharge home
�
Total�time�spent�on�today�s�encounter�was�52�minutes�which�included�time�spent�in�counseling�the�patient/family�regarding�diagnosis�and�treatment�plan�as�listed�above,�goals�of�care,�and�symptom�management.�Case�was�discussed�with�nursing�staff,�spec
ialists,�and�care�coordinators/case�management.�All�labs�and�imaging�personally�reviewed�by�me.�Remainder�the�time�spent�in�detailed�review�of�previous�records,�lab�data,�imaging,�and�other�medical�provider�documentation.
Original Note:
Today's Communication/Plan
-
Urinalysis was done due to dysuria and was negative for infection
Plan for discharge today on Ciprofloxacin 500 mg BID for 14 days.
advised to f/u with hem-onc specialty for neutropenia as an outpatient visit
F/u with his PCP as an outpatient.
Assessment / Plan
Assessment / Plan
84 y/o male past medical history of CAD, CVA, s/p TAVR, HTN, DM and REX who presents with right foot pain. Patient reports he stepped on a nail two weeks ago. He was seen by his primary care provider who gave him a tetanus shot and started him
on Augmentin. Patient reports he continues to have significant pain in the foot. He did have an x-ray of the foot on December 08 and ultrasound on December 16 without any significant findings. He denies any fevers, sweats or chills.
Plan: Discussion with pt regarding tx plans. In contact with outpt sanitary plumber. Heme consult for neutropenia, planning GCSF injection. Transition from cefepime to cipro. ANC decreased again today to 300 WBC 1.7.
Pt brought in home salas since he takes it on Sundays.
#Right Foot Pain
-MRI of right foot , showed cellulitis with no signs of osteomyelitis
- Appreciate IC recs. Transition to cipro
- ID following
- check blood cultures. NGTD.
#Leukopenia with Neutropenia
neutrophiles 300-->700 today
likely not secondary to underlying infection (cellulitis) per ID
Hematology consult. Started GCSF injection yesterday 12/18/2024
Possible agranulocytosis due to antibiotics. Continued downtrend
#ASCVD
-Continue aspirin and Plavix
#Essential Hypertension
-Continue metoprolol and doxazosin
#Hyperlipidemia
-Continue atorvastatin and ezetimibe
#Diabetes Mellitus, Type II
-Continue Lantus
-Monitor sugars and continue coverage insulin
#Obesity
-Patient using Salas as outpatient. Brought in to take today
#Obstructive Sleep Apnea
-Continue CPAP
DVT proph: Lovenox
Code Status: Full Code
Anticipated Discharge: Today
Subjective/Interval History
-
Date of Service: December 19, 2024
Patient stated that he still have pain in his right foot but less intensity now. Denied fever, chills , nausea, vomiting. He has burning sensation on the tip of his penis specially at nigh when he urinate. Denied urinary frequency or hematuria or
abd pain.
Objective Data
-
Labs:
Laboratory Results
12/19/24
07:20
WBC 2.5 L
Hgb 13.9
Hct 40.8
Plt Count 144
Sodium 140
Potassium 4.2
Chloride 107
Carbon Dioxide 27
BUN 9
Creatinine 0.6 L
Glucose 86
Calcium 9.4
Total Bilirubin 1.2
AST 35
ALT 36
Alkaline Phosphatase 62
Vital Signs:
Vital Signs
Temp Pulse Resp BP Pulse Ox
97.7 F 71 16 146/71 99
12/19/24 07:00 12/19/24 09:08 12/19/24 07:00 12/19/24 09:08 12/19/24 13:46
I&O
12/18/24 12/19/24 12/20/24
06:59 06:59 06:59
Intake Total 1380 / 1380 1680 / 1680
Balance 1380 / 1380 1680 / 1680
Review of Systems
-
History Source: Patient
Respiratory: Reports No Symptoms
Cardiac: Reports No Symptoms
Genitourinary: Reports Dysuria
Skin: Reports Other (burning on the tip on his penis , skin irritation)
Physical Exam
-
General: Well Developed, Well Nourished, No Apparent Distress and Comfortable
HEENT: Normocephalic, Atraumatic, Moist Mucous Membranes, Nose Appears Normal and Ears Appear Normal
Respiratory: Clear to Auscultation and Non Labored Respirations
Cardiac: Regular Rhythm and S1/S2
GI: Soft, Nontender and Nondistended
Musculoskeletal: No Edema
Skin: Warm and Dry
Neuro: AO x 3, Nonfocal/Grossly Intact and DTR's Intact & Symmetrica
[2024-12-19] MEDS: GRANIX 480 MCG SC (14:46)
[2024-12-19 15:10] VITALS: BP 135/63
--- NOTE | 2024-12-20 05:53 | W.DCSUMMARY ---
Addendum entered and electronically signed by Javier Dorado MD 12/20/24 07:55:
Attending�addendum:
I�saw�and�evaluated�the�patient.�I�reviewed�the�resident�s�note�and�agree�with�findings�and�plan�as�documented�in�the�resident�s�note.��
�patient seen and examined at bedside, denies any chest pain or shortness of breath, no abdominal pain, no nausea, no vomiting, no diarrhea or constipation.
Foot pain, plan to discharge home on oral Cipro through 12/28
Physical�exam:
GENERAL : Patient is awake, alert, oriented x3
HEENT: Nonicteric sclerae, PERRLA, EOMI. Oropharynx clear. Moist mucous membranes. Conjunctivae appear well perfused.
CHEST: Chest wall is nontender.
HEART: Regular rate and rhythm without murmurs.
LUNGS: Clear to auscultation bilaterally.
ABDOMEN: Soft, positive bowel sounds, nontender, no organomegaly.
RECTAL: Deferred.
SKIN: No rash, no excessive bruising, petechiae, or purpura.
NEUROLOGIC: Cranial nerves II-XII intact without motor/sensory deficit.
�
Assessment/plan:
Right foot pain.
Secondary to tenosynovitis caused by foreign body.
Appreciate infectious disease input.
Discharge on Cipro
Leukopenia/neutropenia.
Improved.
Follow-up with hematology as outpatient
Coronary artery disease/hypertension/hyperlipidemia/diabetes.
Continue current meds
Abnormal labs:
Wounds:
CODE STATUS: Full code
DVT prophylaxis: Lovenox
Diet: Diabeticdiet
Family communication: Discussed with family at bedside
Disposition: Discharge home
Original Note:
Documented by User: Tonja Baeza MD, Resident 12/20/24 06:20
Discharge Summary
Discharge Data
Date of Admission: 12/19/24
Date of Discharge: 12/19/24
-
Pending Results: Yes
Additional Pending Results:
Final results of blood culture
Hospital Course
Patient is an 84 y/o male past medical history of CAD, CVA, s/p TAVR, HTN, DM and REX who presents with right foot pain. Patient reports he stepped on a nail wearing sneaker last week. He was seen by his primary care provider who gave him a
tetanus shot and started him on Augmentin. Patient reports he continues to have significant pain in the foot. He did have an x-ray of the foot on December 08 and ultrasound on December 16 without any significant findings. He denies any fevers,
sweats or chills. In ED patient was afebrile, white count noted to be 2.1 with absolute neutrophil count of 700 which during hospitalization went down to --400--500--300. Hem-onc consulted and a dose of GCSF was given and then the Neutrophil count
up to 700. Follow up with Hem-Onc was advised as an outpatient visit to assess for neutropenia.
MRI of the right foot on 12/16/2024 showed no evidence to suggest osteomyelitis. Mild tendinosis and tenosynovitis involving the flexor hallucis longus, likely react
In the ER , right foot was swelling and warm to tough without tenderness, Podiatry and infectious disease consulted and started on IV vancomycin and Zosyn, blood culture showed no growth to the date of the discharge. Patient switched the antibiotics
to Ciprofloxacin 500 mg PO BID.
During hospitalization patient c/o burning urination specially at the night , urinalysis showed no UTI.
Along with above conditions , patient chronic conditions have been managed during hospitalization with his home regimens and patient discharged in stable condition on Ciprofloxacin 500mg BID PO for 14 days and hydrocortisone cream 1% on the
irritated penile area as needed at night.
Discharge Plan
-
Patient Disposition: Home (Routine Discharge)
Discharge Diagnosis/Procedures: Cellulitis of the Right foot
Diet: Diabetic, Carb Controlled
Activity: As tolerated
Additional Activity: Wearing popidome shoes
Driving Restrictions: As prior to admission
Bathing Restrictions: OK to Shower
Blood Work: CBC with diff. in 5 days
Activity Restrictions/Additional Instructions:
If you are taking antacid, iron, zinc, magnesium, aluminum, calcium, or sucralfate, take these products 6 hours before or 2 hours after
ciprofloxacin.
Instructions: Cellulitis (skin infection) in adults (DC)
Referrals:
Edy Tamayo DO [Active, Hematology / Oncology] - in one to two weeks
Sravani Flores DPM [Active, Podiatry] - in one to two weeks
You Raygoza DO [Family Provider, Family Practice] - in less than 1 week
Additional Discharge Medication Instructions: Ciprofloxacin 500 mg BID PO for two weeks
Hydrocortisone 1% cream apply two time to the irritating skin
Take Acetaminophen 650 mg PO as needed for pain Q8H
Prescriptions:
New
ciprofloxacin HCl [Cipro] 500 mg tablet
500 mg PO BID 14 Days Qty: 28 0RF
hydrocortisone 1 % cream
1 applic topical BID PRN (Reason: skin irritation) 7 Days Qty: 28.35 0RF
acetaminophen 650 mg tablet extended release
650 mg PO Q8H PRN (Reason: Foot pain) 14 Days Qty: 42 0RF
Continued
atorvastatin 40 mg Tablet
40 mg PO DAILY
Patient Comments:
MEDICATION OBTAINED FROM H&P DATED 11/03/23.
levetiracetam 500 mg Tablet
500 mg PO BID
Patient Comments:
MEDICATION OBTAINED FROM H&P DATED 11/03/23.
azelastine 137 mcg (0.1 %) [place],Non-Aerosol
1 spray INTRANASAL BID
Patient Comments:
MEDICATION OBTAINED FROM H&P DATED 11/03/23.
ezetimibe 10 mg Tablet
10 mg PO DAILY
Patient Comments:
MEDICATION OBTAINED FROM H&P DATED 11/03/23.
insulin glargine [Lantus Solostar U-100 Insulin] 100 unit/mL (3 mL) Insulin Pen
10 unit SC BID
Patient Comments:
MEDICATION OBTAINED FROM H&P DATED 11/03/23.
aspirin 81 mg Tablet,Delayed Release (Dr/Ec)
81 mg PO DAILY
Patient Comments:
MEDICATION OBTAINED FROM H&P DATED 11/03/23.
famotidine 20 mg Tablet
20 mg PO BID
Patient Comments:
MEDICATION OBTAINED FROM H&P DATED 11/03/23.
coenzyme Q10 [Co Q-10] 200 mg Capsule
200 mg PO DAILY
Patient Comments:
MEDICATION OBTAINED FROM H&P DATED 11/03/23.
melatonin 5 mg Tablet
5 mg PO HS PRN (Reason: sleep)
Patient Comments:
MEDICATION OBTAINED FROM H&P DATED 11/03/23.
cholecalciferol (vitamin D3) [Vitamin D3] 50 mcg (2,000 unit) Capsule
50 mcg PO DAILY
Patient Comments:
MEDICATION OBTAINED FROM H&P DATED 11/03/23.
Preservision
2 cap PO BID
Patient Comments:
MEDICATION OBTAINED FROM H&P DATED 11/03/23.
Probiotic
1 cap PO DAILY
Patient Comments:
MEDICATION OBTAINED FROM H&P DATED 11/03/23.
Rescue 1250 Fish Oil 500 mg capsule
2 cap PO DAILY
Patient Comments:
MEDICATION OBTAINED FROM H&P DATED 11/03/23.
Slo Fe
45 mg PO DAILY
Patient Comments:
MEDICATION OBTAINED FROM H&P DATED 11/03/23.
Vitamin B-12
1 tab PO DAILY
Patient Comments:
MEDICATION OBTAINED FROM H&P DATED 11/03/23.
resveratrol
1 cap PO DAILY
Patient Comments:
MEDICATION OBTAINED FROM H&P DATED 11/03/23.
clopidogrel 75 mg Tablet
75 mg PO DAILY
Patient Comments:
MEDICATION OBTAINED FROM H&P DATED 11/03/23.
prednisolone acetate 1 % Drops,Suspension
2 drp OPHTHALMIC (EYE) DAILY
doxazosin 4 mg tablet
4 mg PO DAILY
metoprolol succinate 25 mg Tablet Extended Release 24 Hr
25 mg PO DAILY
Mounjaro 5 mg/0.5 mL pen injector
2.5 mg SC CROWELL
fluticasone propionate 50 mcg/actuation [place],Suspension
1 spray INTRANASAL BID
Discontinued
acetaminophen [Tylenol Extra Strength] 500 mg Tablet
1,000 mg PO TID@0600,1400,2200 PRN (Reason: fever, mild pain ) Qty: 0 0RF
Rx Instructions:
Please purchase over the counter.
Discharge Orders:
Discharge Patient (As Directed); Ordered 12/19/24
Ordered By: Javier Dorado
Discharge Date and Time
Discharge Date/Time: 12/19/24 15:33
Print Language: FRISIAN

Documented by User: Javier Dorado MD 12/20/24 07:54
Discharge Summary
Discharge Data
Date of Admission: 12/19/24
Date of Discharge: 12/20/24
Discharge Plan
-
Patient Disposition: Home (Routine Discharge)
Discharge Diagnosis/Procedures: Cellulitis of the Right foot
Diet: Diabetic, Carb Controlled
Activity: As tolerated
Additional Activity: Wearing popidome shoes
Driving Restrictions: As prior to admission
Bathing Restrictions: OK to Shower
Blood Work: CBC with diff. in 5 days
Activity Restrictions/Additional Instructions:
If you are taking antacid, iron, zinc, magnesium, aluminum, calcium, or sucralfate, take these products 6 hours before or 2 hours after
ciprofloxacin.
Instructions: Cellulitis (skin infection) in adults (DC)
Referrals:
Edy Tamayo DO [Active, Hematology / Oncology] - in one to two weeks
Sravani Flores DPM [Active, Podiatry] - in one to two weeks
You Raygoza DO [Family Provider, Family Practice] - in less than 1 week
Additional Discharge Medication Instructions: Ciprofloxacin 500 mg BID PO for two weeks
Hydrocortisone 1% cream apply two time to the irritating skin
Take Acetaminophen 650 mg PO as needed for pain Q8H
Prescriptions:
New
ciprofloxacin HCl [Cipro] 500 mg tablet
500 mg PO BID 14 Days Qty: 28 0RF
hydrocortisone 1 % cream
1 applic topical BID PRN (Reason: skin irritation) 7 Days Qty: 28.35 0RF
acetaminophen 650 mg tablet extended release
650 mg PO Q8H PRN (Reason: Foot pain) 14 Days Qty: 42 0RF
Continued
atorvastatin 40 mg Tablet
40 mg PO DAILY
Patient Comments:
MEDICATION OBTAINED FROM H&P DATED 11/03/23.
levetiracetam 500 mg Tablet
500 mg PO BID
Patient Comments:
MEDICATION OBTAINED FROM H&P DATED 11/03/23.
azelastine 137 mcg (0.1 %) [place],Non-Aerosol
1 spray INTRANASAL BID
Patient Comments:
MEDICATION OBTAINED FROM H&P DATED 11/03/23.
ezetimibe 10 mg Tablet
10 mg PO DAILY
Patient Comments:
MEDICATION OBTAINED FROM H&P DATED 11/03/23.
insulin glargine [Lantus Solostar U-100 Insulin] 100 unit/mL (3 mL) Insulin Pen
10 unit SC BID
Patient Comments:
MEDICATION OBTAINED FROM H&P DATED 11/03/23.
aspirin 81 mg Tablet,Delayed Release (Dr/Ec)
81 mg PO DAILY
Patient Comments:
MEDICATION OBTAINED FROM H&P DATED 11/03/23.
famotidine 20 mg Tablet
20 mg PO BID
Patient Comments:
MEDICATION OBTAINED FROM H&P DATED 11/03/23.
coenzyme Q10 [Co Q-10] 200 mg Capsule
200 mg PO DAILY
Patient Comments:
MEDICATION OBTAINED FROM H&P DATED 11/03/23.
melatonin 5 mg Tablet
5 mg PO HS PRN (Reason: sleep)
Patient Comments:
MEDICATION OBTAINED FROM H&P DATED 11/03/23.
cholecalciferol (vitamin D3) [Vitamin D3] 50 mcg (2,000 unit) Capsule
50 mcg PO DAILY
Patient Comments:
MEDICATION OBTAINED FROM H&P DATED 11/03/23.
Preservision
2 cap PO BID
Patient Comments:
MEDICATION OBTAINED FROM H&P DATED 11/03/23.
Probiotic
1 cap PO DAILY
Patient Comments:
MEDICATION OBTAINED FROM H&P DATED 11/03/23.
Rescue 1250 Fish Oil 500 mg capsule
2 cap PO DAILY
Patient Comments:
MEDICATION OBTAINED FROM H&P DATED 11/03/23.
Slo Fe
45 mg PO DAILY
Patient Comments:
MEDICATION OBTAINED FROM H&P DATED 11/03/23.
Vitamin B-12
1 tab PO DAILY
Patient Comments:
MEDICATION OBTAINED FROM H&P DATED 11/03/23.
resveratrol
1 cap PO DAILY
Patient Comments:
MEDICATION OBTAINED FROM H&P DATED 11/03/23.
clopidogrel 75 mg Tablet
75 mg PO DAILY
Patient Comments:
MEDICATION OBTAINED FROM H&P DATED 11/03/23.
prednisolone acetate 1 % Drops,Suspension
2 drp OPHTHALMIC (EYE) DAILY
doxazosin 4 mg tablet
4 mg PO DAILY
metoprolol succinate 25 mg Tablet Extended Release 24 Hr
25 mg PO DAILY
Mounjaro 5 mg/0.5 mL pen injector
2.5 mg SC CROWELL
fluticasone propionate 50 mcg/actuation [place],Suspension
1 spray INTRANASAL BID
Discontinued
acetaminophen [Tylenol Extra Strength] 500 mg Tablet
1,000 mg PO TID@0600,1400,2200 PRN (Reason: fever, mild pain ) Qty: 0 0RF
Rx Instructions:
Please purchase over the counter.
Discharge Orders:
Discharge Patient (As Directed); Ordered 12/19/24
Ordered By: Javier Dorado
Discharge Date and Time
Discharge Date/Time: 12/19/24 15:33
Print Language: FRISIAN
== END 2024-12-19 15:33 | disposition home or self-care (01) | DRG 603 ==
LOC: 3 WEST ACU 08:21
PROVIDERS: Emergency Medicine; Physician Assistant Medical; Specialist Research Data Abstracter/Coder; ADMITTING PHYSICIAN Internal Medicine; ATTENDING PHYSICIAN General Practice; CONSULT PHYSICIAN Internal Medicine Hematology & Oncology; CONSULT PHYSICIAN Internal Medicine Infectious Disease; CONSULT PHYSICIAN Podiatrist Foot & Ankle Surgery; EMERGENCY PHYSICIAN Emergency Medicine; FAMILY PHYSICIAN Family Medicine
DX: L03.115 Cellulitis of right lower limb (principal); S91.331A Puncture wound without foreign body, right foot, initial encounter; W45.0XXA Nail entering through skin, initial encounter; E78.00 Pure hypercholesterolemia, unspecified; K21.9 Gastro-esophageal reflux disease without esophagitis; E11.649 Type 2 diabetes mellitus with hypoglycemia without coma; E66.9 Obesity, unspecified; M65.871 Other synovitis and tenosynovitis, right ankle and foot; G47.33 Obstructive sleep apnea (adult) (pediatric); G25.0 Essential tremor; I25.118 Atherosclerotic heart disease of native coronary artery with other forms of angina pectoris; I10 Essential (primary) hypertension; E11.40 Type 2 diabetes mellitus with diabetic neuropathy, unspecified; D70.9 Neutropenia, unspecified; K22.70 Barrett's esophagus without dysplasia; B96.5 Pseudomonas (aeruginosa) (mallei) (pseudomallei) as the cause of diseases classified elsewhere; Y93.89 Activity, other specified; Y92.007 Garden or yard of unspecified non-institutional (private) residence as the place of occurrence of the external cause; Z95.1 Presence of aortocoronary bypass graft; Z95.2 Presence of prosthetic heart valve; Z95.5 Presence of coronary angioplasty implant and graft; Z79.4 Long term (current) use of insulin; Z87.891 Personal history of nicotine dependence; Z88.5 Allergy status to narcotic agent; Z79.82 Long term (current) use of aspirin; Z79.02 Long term (current) use of antithrombotics/antiplatelets; Z79.85 Long-term (current) use of injectable non-insulin antidiabetic drugs; Z79.51 Long term (current) use of inhaled steroids; I69.30 Unspecified sequelae of cerebral infarction; Z79.899 Other long term (current) drug therapy
CPT/HCPCS: 73720; 80048; 80053; 81003; 81015; 82962; 83036; 85025; 85652; 86140; 87040; 93005; 96365; 96367; 99284; A9575; J1447